=== PATIENT | male | born 1935 | race Caucasian/White ===

== ENCOUNTER 2017-01-22 08:57 | Day surgery (SDC) | payer OTHER ==
[~2017-01-22] VITALS: Ht 175.3 cm; Wt 79.8 kg
[~2017-01-22 08:57] MED LIST: ASPI81TA82 PO; ATOR40TA PO; CARV3.125 PO; ENAL10 PO; ENAL10TA7 PO; FURO1TAB93 PO; HYDR-3533 PO; METF500 PO
[2017-01-22] MEDS ORDERED: TAMS0.4C4 PO (09:46)
[2017-01-22] MEDS ORDERED: FERR1TAB36 PO (09:46)
[2017-01-22] MEDS ORDERED: AMOX500C PO (09:46)
[2017-01-22] MEDS ORDERED: ENAL10TA PO (09:46)
[2017-01-22] MEDS ORDERED: CARV3.12 PO (09:46)
[2017-01-22] MEDS ORDERED: MAGN400T2 PO (09:46)
[2017-01-22] MEDS ORDERED: METF500T PO (09:46)
[2017-01-22] MEDS ORDERED: ATOR40TA16 PO (09:46)
[2017-01-22] MEDS ORDERED: ASPI1TAB69 PO (09:46)
[2017-01-22] MEDS ORDERED: MULT1TAB85 PO (09:46)
[2017-01-22 09:49] VITALS: BP 153/88; TEMP 98.2
[2017-01-22] MEDS ORDERED: NS 1000P @30 MLS/HR (KVO) IV SCH (10:00)
[2017-01-22 10:06] LABS: AUTOMATED NEUTROPHIL # 3.6 TH/MM3 (1.8-7.7); BASOPHIL % 0.6 % (0.0-2.0); EOSINOPHIL # 0.2 TH/MM3 (0-0.4); EOSINOPHIL % 3.9 % (0.0-4.0); HEMATOCRIT 35.3 % (39.0-51.0); HEMO FLAGS DIFF FINAL; LYMPH % 14.1 % (9.0-44.0); LYMPHOCYTE # 0.7 TH/MM3 (1.0-4.8); MEAN CELL VOLUME 83.1 FL (80.0-100.0); MEAN CORPUSCULAR HEMOGLOBIN 27.9 PG (27.0-34.0); MEAN CORPUSCULAR HGB CONC 33.5 % (32.0-36.0); MONO % 13.4 % (0.0-8.0); PLATELET COUNT 114 TH/MM3 (150-450); RED BLOOD COUNT 4.25 MIL/MM3 (4.50-5.90); RED CELL DISTRIBUTION WIDTH 16.7 % (11.6-17.2); WHITE BLOOD COUNT 5.3 TH/MM3 (4.0-11.0)
[2017-01-22 10:15] LABS: APTT (PATIENT) 28.3 SEC (24.3-30.1); PROTHROMBIN TIME - PATIENT 11.6 SEC (9.8-11.6)
[2017-01-22] MEDS ORDERED: diphenhydrAMINE HCL 50 MG CAP PO SCH (10:15)
[2017-01-22 10:25] LABS: BICARBONATE 28.7 MEQ/L (21.0-32.0); POTASSIUM 3.8 MEQ/L (3.5-5.1)
[2017-01-22] MEDS ORDERED: MIDAZOLAM HCL 2 MG/2 ML VIAL ONE (11:25)
[2017-01-22] MEDS ORDERED: HEPARIN-NS/PF INJ 500 ML ONE (11:25)
[2017-01-22] MEDS ORDERED: IOHEXOL 350 MG/ML 50 ML BTL (for Cath Lab) OTHER ONE (12:28)
[2017-01-22] MEDS ORDERED: ATROPINE SULFATE 1 MG/ML VIAL IV PRN (12:30)
[2017-01-22] MEDS ORDERED: ONDANSETRON HCL 4 MG/2 ML VIAL IV PRN (12:30)
[2017-01-22] MEDS ORDERED: MISC INFORMATION XX ONE (12:30)
--- NOTE | 2017-01-22 12:51 | MA ---
cc: SO FANG DATE: 01/22/2017 1934 PROCEDURE PERFORMED 1. Left heart catheterization. 2. Selective right and left coronary angiography. 3. Selective right common femoral artery angiography. INDICATION Severe symptomatic aortic stenosis, [place] [employer] 30/preoperative evaluation. DESCRIPTION OF PROCEDURE Consent was signed. 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 The right groin was prepped and draped in sterile fashion using 1% lidocaine for local anesthesia and a micropuncture kit. A 5-Afghan sheath was inserted into the right common femoral artery. The right common femoral artery angiography was performed with a JR-4 and a JL-5 diagnostic catheters. Angiography was taken in multiple views. The patient tolerated the procedure well without complications. Estimated blood loss was less than 30 ccs. Total contrast used was 50 ccs. The right groin access site was closed with a Vascade closure device. CONCLUSION 1. Normal coronary arteries. 2. Severe symptomatic aortic stenosis. RESULTS Aortic pressure 127/65 with a mean of 92. ANGIOGRAPHY 1. Right coronary artery is a nondominant vessel, it is small with PATTY III flow. 2. Left main is patent with nonobstructive coronary artery disease. 3. LAD is a transapical vessel. It has minimal luminal irregularities throughout. It has a 30% lesion proximally and 20% distally. The LAD gave off two diagonals which are also patent with PATTY III flow and nonobstructive coronary artery disease. 4. The left circumflex artery is a dominant vessel giving off the PDA. It has minimal luminal irregularities throughout and it has a 20% proximal lesion. OM1 and OM2 are patent. RECOMMENDATIONS Consult CT surgery for AVR, continue medical management. MD SHIRA Gomez/SHELLIE /12:24 PM /12:38 PM RAFA
--- NOTE | 2017-01-22 15:59 | RADRPT ---
EXAM DATE/TIME: 01/22/2017 14:55 [facility] COMPARISON: No previous studies available for comparison. INDICATIONS : Pre-op AVR. MEDICAL HISTORY : Hypercholesterolemia. Hypertension. Congestive heart failure. Coronary artery disease. Arthritis. D iabetes. SURGICAL HISTORY : Tonsillectomy. Right total knee replacement. ENCOUNTER: Initial ACUITY: 1 day PAIN SCORE: 0/10 LOCATION: Bilateral neck PEAK SYSTOLIC VELOCITIES (cm/sec): ICA/CCA RATIO: Right: 1.5 Left: 0.9 ICA: Right: 115 Left: 74 CCA: Right: 77 Left: 81 ECA: Right: 46 Left: 86 VERTEBRAL: Right: 46 antegrade Left: 44 antegrade Elevated flow velocities and ICA/CCA ratios have been found to correlate with increased degrees of vessel stenosis, calculated as percentage of diameter relative to a normal segment of distal ICA/CCA FINDINGS: RIGHT CAROTID: A small focal calcified plaque at the ICA origin. No significant stenosis is visualized. The wavefor ms are within normal limits. LEFT CAROTID: Mild calcified plaques. No significant stenosis is visualized. The waveforms are within normal limit s. VERTEBRAL ARTERIES: Antegrade flow is seen in both vertebral arteries. A high resistance waveform is seen on the right. N ormal low resistance waveform on the left. MISCELLANEOUS: None. CONCLUSION: 1. Mild calcified plaque involving the carotid arteries bilaterally. No stenosis observed. 2. Antegrade flow involving both vertebral arteries. 3. Suspected right vertebral artery terminating in PICA distribution. Rene Ceron Jr., MD on January 22, 2017 at 15:55 Board Certified Radiologist. This report was verified electronically.
[2017-01-22 16:12] LABS: BLOOD, URINE NEG (NEG); COMMENT (UR) CULT NOT INDICATED; CULTURE IF INDICATED CULT NOT INDICATED; GLUCOSE,URINE NEG (NEG); KETONE, URINE NEG (NEG); NITRITE,URINE NEG (NEG); URINE COLOR LIGHT-YELLOW (YELLW/STRAW)
--- NOTE | 2017-01-22 16:25 | RADRPT ---
EXAM DATE/TIME: 01/22/2017 15:49 [facility] COMPARISON: No previous studies available for comparison. INDICATIONS : Pre-operation AVR; evaluate for aortic calcification. RADIATION DOSE: 5.30 CTDIvol (mGy) MEDICAL HISTORY : Cardiovascular disease. Congestive heart failure. Hypertension. SURGICAL HISTORY : None. ENCOUNTER: Initial ACUITY: 1 day PAIN SCALE: 0/10 LOCATION: Chest TECHNIQUE: Volumetric scanning of the chest was performed. Using automated exposure control and adjustment of t he mA and/or kV according to patient size, radiation dose was kept as low as reasonably achievable to obtain optimal diagnostic quality images. FINDINGS: Granuloma is seen in the left upper lobe. Gallstones are noted. There is no axillary adenopathy. M oderate coronary artery calcification and mediastinal calcifications are noted. Moderate coronary ar ashok disease is noted. Moderate vascular calcifications are seen about the aortic valve. Left renal cyst is noted. CONCLUSION: 1. Gallstones. 2. Coronary artery and aortic valvular calcifications and normal sized heart. There are no suspicio us lung lesions identified. Kuldip Borrero MD FACR on January 22, 2017 at 16:19 Board Certified Radiologist. This report was verified electronically.
--- NOTE | 2017-01-22 17:04 | PD.CAR.PN ---
CVT Progress Note Subjective/Hospital Course: sts data discussed with pt RISK SCORES About the STS Risk Calculator Procedure: AV Replacement Risk of Mortality: 2.018% Morbidity or Mortality: 13.59% Long Length of Stay: 5.052% Short Length of Stay: 38.84% Permanent Stroke: 1.452% Prolonged Ventilation: 6.466% DSW Infection: 0.235% Renal Failure: 4.161% Reoperation: 7.013% Objective: Vital Signs Date Time Temp Pulse Resp B/P Pulse Ox O2 Delivery O2 Flow Rate FiO2 01/22/17 12:33 Room Air 01/22/17 09:49 98.2 153/88 Labs: Laboratory Tests Test 01/22/17 01/22/17 09:30 15:35 White Blood Count 5.3 TH/MM3 (4.0-11.0) Red Blood Count 4.25 MIL/MM3 (4.50-5.90) Hemoglobin 11.8 GM/DL (13.0-17.0) Hematocrit 35.3 % (39.0-51.0) Mean Corpuscular Volume 83.1 FL (80.0-100.0) Mean Corpuscular Hemoglobin 27.9 PG (27.0-34.0) Mean Corpuscular Hemoglobin 33.5 % Concent (32.0-36.0) Red Cell Distribution Width 16.7 % (11.6-17.2) Platelet Count 114 TH/MM3 (150-450) Mean Platelet Volume 8.5 FL (7.0-11.0) Neutrophils (%) (Auto) 68.0 % (16.0-70.0) Lymphocytes (%) (Auto) 14.1 % (9.0-44.0) Monocytes (%) (Auto) 13.4 % (0.0-8.0) Eosinophils (%) (Auto) 3.9 % (0.0-4.0) Basophils (%) (Auto) 0.6 % (0.0-2.0) Neutrophils # (Auto) 3.6 TH/MM3 (1.8-7.7) Lymphocytes # (Auto) 0.7 TH/MM3 (1.0-4.8) Monocytes # (Auto) 0.7 TH/MM3 (0-0.9) Eosinophils # (Auto) 0.2 TH/MM3 (0-0.4) Basophils # (Auto) 0.0 TH/MM3 (0-0.2) CBC Comment DIFF FINAL Differential Comment Prothrombin Time 11.6 SEC (9.8-11.6) Prothromb Time International 1.0 RATIO Ratio Activated Partial 28.3 SEC Thromboplast Time (24.3-30.1) Sodium Level 141 MEQ/L (136-145) Potassium Level 3.8 MEQ/L (3.5-5.1) Chloride Level 108 MEQ/L (98-107) Carbon Dioxide Level 28.7 MEQ/L (21.0-32.0) Anion Gap 4 MEQ/L (5-15) Blood Urea Nitrogen 17 MG/DL (7-18) Creatinine 0.88 MG/DL (0.60-1.30) Estimat Glomerular Filtration 83 ML/MIN (>89) Rate Random Glucose 108 MG/DL (74-106) Calcium Level 9.0 MG/DL (8.5-10.1) Urine Color LIGHT-YELLOW (YELLW/STRAW) Urine Turbidity CLEAR (CLEAR) Urine pH 6.0 (5.0-8.5) Urine Specific [place] 1.022 (1.002-1.035) Urine Protein NEG mg/dL (NEG-TRACE) Urine Glucose (UA) NEG mg/dL (NEG) Urine Ketones NEG mg/dL (NEG) Urine Occult Blood NEG (NEG) Urine Nitrite NEG (NEG) Urine Bilirubin NEG (NEG) Urine Urobilinogen LESS THAN 2.0 MG/DL (LESS THAN 2.0) Urine Leukocyte Esterase NEG (NEG) Urine RBC 1 /hpf (0-3) Urine WBC LESS THAN 1 /hpf (0-5) Microscopic Urinalysis Comment CULT NOT INDICATED Result Diagram: 01/22/1792901/22/17929 Mary Beth Mata Jan 22, 2017 17:04
--- NOTE | 2017-01-22 17:43 | RADRPT ---
EXAM DATE/TIME: 01/22/2017 17:24 [facility] COMPARISON: No previous studies available for comparison. INDICATIONS : Evaluate for pneumonia, pneumothorax, or communicable disease. Pre op for heart valve replacement. MEDICAL HISTORY : None. SURGICAL HISTORY : Cardiac cath. ENCOUNTER: Initial ACUITY: 1 day PAIN SCORE: 0/10 LOCATION: Bilateral chest FINDINGS: PA and lateral views of the chest demonstrate the lungs to be symmetrically aerated without evidence of mass, infiltrate or effusion. The cardiomediastinal contours are unremarkable. Degenerative silver ges are present thoracic spine.. CONCLUSION: No acute disease. Kuldip Borrero MD FACR on January 22, 2017 at 17:41 Board Certified Radiologist. This report was verified electronically.
--- NOTE | 2017-01-22 19:52 | EKG ---
Date Performed: 01/22/2017 Time Performed: 10:11:10 PTAGE: 81 years EKG: Sinus rhythm with 1st degree A-V block Left ventricular hypertrophy Anterolateral ST-T changes Abnormal ECG PREVIOUS TRACING : 10/01/2015 12.42 Compared to the previous tracing ST-T changes present DOCTOR: Joe Russlel Interpretating Date/Time 01/22/2017 19:51:56
--- NOTE | 2017-01-23 08:37 | MB ---
cc: PAOLA SAMUEL DATE OF CONSULTATION: 01/22/2017 REASON FOR CONSULTATION: Evaluate for aortic valve replacement DATE OF : 1935 HISTORY OF PRESENT ILLNESS: The patient is an 81-year-old male, patient of Dr. Glass, primary care, Dr. Dietrich, and Dr. Kaushal Rodriguez, history of aortic stenosis, complains of symptoms of lightheadedness, presyncope, longstanding shortness of breath occurring with minimal levels of exertion, denied having any chest pain. He was told three weeks ago not to do any extensive exercise. Prior to that he was exercising at a regular basis, drives, takes care of himself, very active. He had an echocardiogram that showed a peak gradient of 93, mean gradient of 54, consistent with severe stenosis, severely restricted leaflet motion, mild to moderate mitral regurgitation, mild tricuspid regurgitation, EF of 53%. We were consulted to evaluate for aortic valve replacement. PAST MEDICAL HISTORY: 1. Chronic anemia. 2. History of thrombocytopenia, leukopenia and had a bone marrow four or five years ago which was normal. 3. Carotid artery stenosis. In 2013 it was mild. 4. 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 [place] heart class 3. 5. Chronic kidney disease, stage 2. 6. Diabetes mellitus, type 2. 7. GI bleed back in 2013, was scoped by Dr. Desai. 8. Hypertension. 9. Osteoarthritis. 10. History of prostate enlargement and follows with Dr. Latham for urology. PAST SURGICAL HISTORY: 1. Right knee replacement. 2. Tonsillectomy. 3. Bone marrow biopsy. 4. Colonoscopy. ALLERGIES: None known. HOME MEDICATIONS: 1. Amoxicillin, dental procedure p.r.n. 2. Aspirin 81 milligrams 3. Atorvastatin 40 p.o. daily. 4. Coreg 3.125 daily. 5. Metformin 500 p.o. b.i.d. 6. Flomax 0.4 p.o. daily. REVIEW OF SYSTEMS: In general, no night sweats, fever, heat and cold intolerance. Skin: No psoriasis, itching or hives. HEENT: No blurred vision, hearing loss. Respiratory: Positive for shortness of breath. Cardiovascular: No chest pain. No paroxysmal nocturnal dyspnea. No orthopnea. Gastrointestinal: No diarrhea, vomiting. Genitourinary: No burning frequency, urgency. ADOPTION AGENT: No history of TIA, CVA, seizure disorder. Endocrinology: Positive for diabetes. PHYSICAL EXAMINATION: VITAL SIGNS: Blood pressure 150/80, heart rate 75, afebrile. GENERAL: The patient is awake, alert, no acute distress. HEAD: Normocephalic, atraumatic. Pupils are equal and reactive. Oral mucosa pink, moist. NECK: Supple. No JVD. HEART: Heart sounds S1-S2. Regular rate and rhythm with a grade 3 to 4 holosystolic murmur, left sternal border. LUNGS: Clear to auscultation. No rales, rhonchi or wheezing. ABDOMEN: Soft, flat, nontender. No masses or organomegaly. EXTREMITIES: No clubbing, cyanosis or edema. LABORATORY WORK-UP: Hemoglobin of 11, hematocrit 35, white cell count of 5.3, platelet count 114. Sodium 141, potassium 3.8, BUN 17, creatinine 0.88. INR 1.0. Urinalysis unremarkable. MRSA is pending. X-RAYS: Carotid ultrasound, mild calcified plaque involving carotid arteries bilaterally. No stenosis. CT of the chest showing coronary artery and aortic valvular calcifications, normal size heart. The calcification was moderate IMPRESSION Very pleasant 81-year-old male, history of aortic stenosis and now with peak gradient of 93, mean gradient of 54. Coronary films and echocardiogram report have been reviewed by Dr. Paola Samuel. PLAN: The plan will be for aortic valve replacement on February 04, as an outpatient. The procedures, alternatives and risks have been discussed with the patient. The patient is agreeable to proceed. STS data will be documented in the electronic record and discussed with the patient. Dictated by: DOMINICK Kilgore MD VALDO Grove/CRISTOFER /5:08 PM /8:37 AM
--- NOTE | 2017-01-23 08:52 | RSPPFT ---
DATE OF PROCEDURE: 01/22/17 COMMENTS: VOLUMES DYNAMIC: FVC and FEV1 normal. FLOWS: FEV1% normal; FEF 25-75 mildly reduced. IMPRESSION: Very mild terminal airflow obstruction.
[2017-01-23 19:00] LABS: HEMOGLOBIN A1b 1.5 %; HEMOGLOBIN LA1C 1.8 %; HEMOGLOBIN P3 3.7 %
== END 2017-01-22 17:53 | disposition home or self-care (01) ==
LOC: HCAT 08:57 → HDIC 08:58 → HCAT 17:53
PROVIDERS: ATTEND Radiology Vascular & Interventional Radiology
DX: I35.0 Nonrheumatic aortic (valve) stenosis (principal); I50.9 Heart failure, unspecified; I25.10 Atherosclerotic heart disease of native coronary artery without angina pectoris; I12.9 Hypertensive chronic kidney disease with stage 1 through stage 4 chronic kidney disease, or unspecified chronic kidney disease; N18.2 Chronic kidney disease, stage 2 (mild); I65.23 Occlusion and stenosis of bilateral carotid arteries; E78.00 Pure hypercholesterolemia, unspecified; K80.20 Calculus of gallbladder without cholecystitis without obstruction; N40.0 Benign prostatic hyperplasia without lower urinary tract symptoms; E11.9 Type 2 diabetes mellitus without complications; Z79.84 Long term (current) use of oral hypoglycemic drugs; Z79.82 Long term (current) use of aspirin
CPT/HCPCS: 71020; 71250; 80048; 81001; 83036; 85025; 85610; 85730; 87641; 93005; 93454; 93880; 94010; C1769; C1893; J1644; J2250; J3010; J7030; Q0163; Q9967

== ENCOUNTER 2017-01-24 13:54 | Inpatient (IN) | payer OTHER, MEDICARE ==
[~2017-01-24] VITALS: Ht 175.3 cm; Wt 79.2 kg
[~2017-01-24 13:54] MED LIST changes: +AMOX500C PO; +ASPI1TAB69 PO; -ASPI81TA82 PO; -ATOR40TA PO; +ATOR40TA16 PO; +CARV3.12 PO; -CARV3.125 PO; -ENAL10 PO; +ENAL10TA PO; -ENAL10TA7 PO; +FERR1TAB36 PO; -FURO1TAB93 PO; -HYDR-3533 PO; +MAGN400T2 PO; -METF500 PO; +METF500T PO; +MULT1TAB85 PO; +TAMS0.4C4 PO
[2017-02-04] VITALS (9 sets, daily range): BP systolic 93–161; BP diastolic 36–85; PULSE 58–90; RESP 15–20; TEMP 98–98.3; O2SAT 97–100
[2017-02-04] MEDS ORDERED: AMINOCAPROIC ACID INJ 250 MG/ML 20 ML VIAL IV ONE (05:00)
[2017-02-04] MEDS ORDERED: DOPAMINE IV ONE (05:00)
[2017-02-04] MEDS ORDERED: GLYCOPYRROLATE 0.2 MG/ML VIAL IV ONE (05:00)
[2017-02-04] MEDS ORDERED: CALCIUM CHLORIDE 10% SOLN 1 GRAM/10 ML SYR IV ONE (05:00)
[2017-02-04] MEDS ORDERED: DEXMEDETOMIDINE INJ 50 ML IV ONE (05:00)
[2017-02-04] MEDS ORDERED: HEPARIN SODIUM - SQ 10,000 UNITS/ML VIAL SQ ONE (05:00)
[2017-02-04] MEDS ORDERED: LIDOCAINE HCL 1% 30 ML VIAL OTHER ONE (05:00)
[2017-02-04] MEDS ORDERED: VECURONIUM BROMIDE 10 MG VIAL IV ONE (05:00)
[2017-02-04] MEDS ORDERED: NOREPINEPHRINE 4 MG/4 ML AMP IV ONE (05:00)
[2017-02-04] MEDS ORDERED: MAGNESIUM SULFATE 1000 MG/2 ML VIAL (PED) IV ONE (05:00)
[2017-02-04] MEDS ORDERED: PHENYLEPHRINE HCL 10 MG/ML VIAL IV ONE (05:00)
[2017-02-04] MEDS ORDERED: PROPOFOL 1000 MG/100 ML INJ 100 ML IV ONE (05:00)
[2017-02-04] MEDS ORDERED: PROTAMINE SULFATE 250 MG/25 ML VIAL IV ONE (05:00)
[2017-02-04] MEDS ORDERED: BUPIVACAINE HCL PF 0.5% 30 ML VIAL ONE (06:29)
[2017-02-04] MEDS ORDERED: VANCOMYCIN HCL 1000 MG VIAL ONE (06:29)
[2017-02-04] MEDS ORDERED: ceFAZolin 2 GM PREMIX 50 ML ONE (06:30)
[2017-02-04] MEDS ORDERED: HEPARIN SODIUM - SQ 10,000 UNITS/ML VIAL ONE ×2 (06:30→06:37)
[2017-02-04] MEDS ORDERED: methylPREDNISolone SOD SUCC 125 MG/2 ML VIAL ONE (06:30)
[2017-02-04] MEDS ORDERED: CUSTODIOL HTK IRR SOLN 1,000 ML ONE (06:32)
[2017-02-04] MEDS ORDERED: POTASSIUM CHLORIDE 40 MEQ/20 ML VIAL ONE ×3 (06:34→06:35)
[2017-02-04] MEDS ORDERED: MANNITOL INJ 50 ML ONE (06:36)
[2017-02-04] MEDS ORDERED: SODIUM BICARBONATE 8.4% INJ 50 ML ONE (06:36)
[2017-02-04] MEDS ORDERED: HEPARIN SODIUM - IV 10,000 UNITS/10 ML VIAL ONE (06:37)
[2017-02-04] MEDS ORDERED: ALBUMIN HUMAN 25% 12.5 GM/50 ML BAGP IV ONE (06:38)
[2017-02-04] MEDS ORDERED: VITA10002 PO (06:48)
[2017-02-04] MEDS ORDERED: VITA100018 PO (06:48)
[2017-02-04] MEDS ORDERED: POVIDONE IODINE 5% (ANTISEPSIS KIT) 4 APPLICATIONS EACH NARE PRN (07:00)
[2017-02-04] MEDS ORDERED: SODIUM CHLORIDE 0.9% FLUSH 10 ML FLUSH IV FLUSH PRN ×2 (07:00)
[2017-02-04] MEDS ORDERED: INSULIN REGULAR 100 UNITS in NS 100 ML IV SCH (07:00)
[2017-02-04] MEDS ORDERED: CHLORHEXIDINE GLUCONATE 4% SOLN 120 ML BTL TOPICAL SCH (07:00)
[2017-02-04] MEDS ORDERED: SODIUM CHLORID 0.9% 500 ML IV PRN (07:00)
[2017-02-04] MEDS ORDERED: INSULIN HUMAN REGULAR 1,000 UNITS/10 ML VIAL SQ PRN (07:00)
[2017-02-04] MEDS ORDERED: METOPROLOL TARTRATE 25 MG TAB PO PRN (07:00)
[2017-02-04] MEDS ORDERED: ceFAZolin 2 GM PREMIX 50 ML IV SCH (07:00)
[2017-02-04] MEDS ORDERED: CEFAZOLIN 500 MG in NS IRR BTL 500 ML IRRIGATION SCH (07:00)
[2017-02-04] MEDS ORDERED: LACTATED RINGER'S 1000 ML IV PRN (07:00)
[2017-02-04] MEDS ORDERED: METOPROLOL TARTRATE 25 MG TAB PO SCH (07:00)
[2017-02-04] MEDS ORDERED: CHLORHEXIDINE GLUCONATE 2 % 1 PACK (2 CLOTHS) TOPICAL PRN (07:00)
[2017-02-04] MEDS ORDERED: ePHEDrine/NS 25 MG/5 ML SYR IV ONE (08:18)
[2017-02-04] MEDS ORDERED: PROPOFOL 200 MG/20 ML AMP IV ONE (08:18)
[2017-02-04] MEDS ORDERED: NEOSTIGMINE 3 MG/3 ML SYR IV ONE (08:19)
[2017-02-04] MEDS ORDERED: SODIUM CHLOR 0.9% 250 ML INJ 750 ML IV ONE (08:19)
[2017-02-04] MEDS ORDERED: NORMOSOL R INJ 3,000 ML IV ONE (08:19)
[2017-02-04] MEDS ORDERED: ceFAZolin INJ 1,000 MG VIAL ONE (13:05)
[2017-02-04] MEDS ORDERED: LACTATED RINGER'S 1000 ML INJ 500 ML IV PRN (13:24)
[2017-02-04] MEDS ORDERED: POTASSIUM CHLOR 20 MEQ PREMIX 100 ML IV PRN ×3 (13:30)
[2017-02-04] MEDS ORDERED: Post-op Orders (for Pharmacy) MISC OTHER ONE (13:30)
[2017-02-04] MEDS ORDERED: DEXTROSE 50% IN WATER 50 ML VIAL(D50) IV PUSH PRN (13:30)
[2017-02-04] MEDS ORDERED: ALBUMIN HUMAN 5% 12.5 GM/250 ML BOTTLE IV PRN (13:30)
[2017-02-04] MEDS ORDERED: ACETAMINOPHEN 650 MG SUPP RECTAL PRN (13:30)
[2017-02-04] MEDS ORDERED: oxyCODONE/ACETAMINOPHEN 5 MG/325 MG TAB PO PRN (13:30)
[2017-02-04] MEDS ORDERED: POTASSIUM CHLORIDE 20 MEQ CONTROLLED RELEASE TAB PO PRN ×2 (13:30)
[2017-02-04] MEDS ORDERED: MAGNESIUM SULFATE INJ 2 GM in SODIUM CHLORIDE 0.9% INJ 100 ML IV PRN ×4 (13:30)
[2017-02-04] MEDS ORDERED: INSULIN REGULAR (IV INFUSION) 100 UNITS in SODIUM CHLORIDE 0.9% INJ 99 ML IV SCH (13:30)
[2017-02-04] MEDS ORDERED: ACETAMINOPHEN 325 MG TAB PO PRN (13:30)
[2017-02-04] MEDS ORDERED: CALCIUM CHLORIDE 10% 1 GRAM/10 ML VIAL IV PRN (13:30)
[2017-02-04] MEDS ORDERED: CLEVIDIPINE INJ 50 ML IV SCH (13:30)
[2017-02-04] MEDS ORDERED: CALCIUM CHLORIDE INJ 1 GM in SODIUM CHLORIDE 0.9% INJ 100 ML IV PRN (13:30)
[2017-02-04] MEDS ORDERED: METOPROLOL TARTRATE 5 MG/5 ML VIAL IV PUSH PRN (13:30)
[2017-02-04] MEDS ORDERED: ONDANSETRON HCL 4 MG/2 ML VIAL IV PUSH PRN (13:30)
[2017-02-04] MEDS ORDERED: hydrALAZINE HCL 20 MG/ML VIAL IV PRN (13:30)
--- NOTE | 2017-02-04 13:43 | PD.OP ---
cc: Kaushal Aguila MD; Paola Samuel MD; Jad Chase MD Operative Report Date of Surgery: Feb 04, 2017 Preoperative Diagnosis: (1) Aortic stenosis (2) Diastolic heart failure due to valvular disease Postoperative Diagnosis: same Procedure: Minimally invasive AVR with a 23 Intuity tissue valve, MARCELINO Percutaneous femoral cannulation, Perclose arterial closure Ultrasound guidance for access. Internal rib fixation. Anesthesia: Dr. Lopez Surgeon: Paola Samuel Production Assembler(s): Luis Eduardo Gandhi MD Operation and Findings: The risks, benefits, complications, treatment options, and expected outcomes were discussed with the patient. The possibilities of reaction to medication, pulmonary aspiration, perforation of viscus, bleeding, recurrent infection, the need for additional procedures, failure to diagnose a condition, and creating a complication requiring transfusion or operation were discussed with the patient. The patient concurred with the proposed plan, giving informed consent. The site of surgery properly noted/marked. The patient was taken to Operating Room, identified as Adalberto Betts and the procedure verified as Minimally Invasive Aortic Valve Replacement. A Time Out was held and the above information confirmed. Standard monitoring lines and Barkley catheter were placed. General anesthesia was induced. The patient was prepped and draped in a sterile fashion. The left femoral artery and vein were accessed percutaneously with ultrasound guidance and 2 Perclose devices were used for later arterial closure. The patient was heparinized for cardiopulmonary bypass. The left femoral artery was cannulated with a 17 [employer] arterial cannula. The left femoral vein was cannulated with a 21 [employer] cannula under MARCELINO guidance. A 6 cm right anterior thoracotomy was performed and the 3rd rib was shingled. The right internal mammary artery and vein were ligated and divided. An Desmond retractor was placed followed by a small chest retractor. The pericardium was opened and a pericardial sling was created using interrupted 0 silk sutures. A small 1 cm incision was made at the 6th intercostal space and an LV vent and pericardial suction were placed through this access port. The aorta was dissected posteriorly for crossclamp placement. Antegrade Custodiol cardioplegia were employed. Additionally, hand-held coronary cardioplegia cannula was used during the procedure. The patient was placed on cardiopulmonary bypass. An aortic cross-clamp was applied and the heart was arrested using cold Custodiol cardioplegia delivered through a 14F catheter. The aorta was opened above the sinotubular ridge and the aortic valve was exposed. The right and left coronary was directly cannulated in addition and cardioplegia was administered. On opening the aorta, the valve appeared calcified. The valve was resected as well as all annular calcification, sized for a 23 Intuity tissue valve which was seated with 3 2-0 Ethibond sutures. The valve seated well. The valve was deployed with the included balloon at 4.5 SPENCER. The aorta was closed with running 4-0 Prolene suture. The patient systemically rewarmed. The heart was vigorously deaired with a clamp on. The clamp was removed, deairing continued. The patient was easily weaned from cardiopulmonary bypass. Decannulation was carried out without incident. Protamine was given. There was no adverse reaction. Intraoperative MARCELINO following the procedure showed a well-seated aortic valve with a tiny perivalvular leak and preserved ventricular function. Wound was checked for hemostasis was obtained using electrocautery. The 3rd rib was reapproximated to the sternum and adjacent rib with a plate. The plate was secured with 7 and 11 mm screws. The fascia and pectoralis were closed with 0 Vicryl. The subcutaneous tissue was closed using a running 3-0 Monocryl suture. The skin was closed with 4-0 Monocryl. Sterile dressings were placed. At the end of the operation, all sponge, instruments, and needle counts were correct. The patient was transferred to the CVICU in stable condition. Paola Samuel MD Feb 04, 2017 13:43
[2017-02-04] MEDS ORDERED: MIDAZOLAM HCL 5 MG/5 ML VIAL ONE ×2 (14:20)
[2017-02-04] MEDS ORDERED: fentaNYL CITRATE 1000 MCG/20 ML VIAL ONE (14:21)
--- NOTE | 2017-02-04 14:49 | RADRPT ---
EXAM DATE/TIME: 02/04/2017 14:16 [facility] COMPARISON: No previous studies available for comparison. INDICATIONS : Post open heart surgery. MEDICAL HISTORY : Cardiovascular disease. Congestive heart failure. Hypertension. SURGICAL HISTORY : None. ENCOUNTER: Initial ACUITY: 1 day PAIN SCORE: 0/10 LOCATION: Bilateral chest FINDINGS: There is cardiomegaly. Cardiac valvular prosthesis is noted. There is atelectasis at both lung bases. No consolidation or effusion. Right-sided chest tube is present, and a mediastinal tube is noted. I do not see a pneumothorax. A metallic plate and screws overlie the right lower chest. Degenerative ch anges of the spine. Right jugular line tip overlies the SVC. CONCLUSION: Atelectasis and postsurgical changes noted. Matthieu Ross MD on February 04, 2017 at 14:46 Board Certified Radiologist. This report was verified electronically.
[2017-02-04] MEDS ORDERED: RESP: RACEPINEPHRINE 2.25% 0.5 ML NEB NEB PRN (15:00)
[2017-02-04] MEDS ORDERED: RESP: ALBUTEROL 2.5 MG/IPRATROPIUM 0.5 MG NEB (PRN) NEB (15:00)
[2017-02-04] MEDS: ACETAMINOPHEN 1000 MG/100 ML VIAL IV SCH ×2 (15:11→20:21)
[2017-02-04] MEDS: TAMSULOSIN HCL 0.4 MG CAP PO SCH (20:21)
[2017-02-04] MEDS: AMIODARONE 200 MG TAB PO SCH (20:21)
[2017-02-04] MEDS: ATORVASTATIN 40 MG TAB PO SCH (20:21)
[2017-02-04] MEDS: RESP: ALBUTEROL 2.5 MG/IPRATROPIUM 0.5 MG NEB (SCH) NEB (20:53)
[2017-02-05] VITALS (18 sets, daily range): BP systolic 116–145; BP diastolic 44–66; PULSE 79–102; RESP 15–18; TEMP 98–98.7; O2SAT 94–99
[2017-02-05] MEDS: RESP: ALBUTEROL 2.5 MG/IPRATROPIUM 0.5 MG NEB (SCH) NEB ×3 (03:29→20:18)
[2017-02-05] MEDS: ACETAMINOPHEN 1000 MG/100 ML VIAL IV SCH ×2 (03:38→09:20)
[2017-02-05 05:13] LABS: HEMATOCRIT 22.6 % (39.0-51.0); MEAN CELL VOLUME 83.1 FL (80.0-100.0); MEAN CORPUSCULAR HEMOGLOBIN 28.2 PG (27.0-34.0); MEAN CORPUSCULAR HGB CONC 33.9 % (32.0-36.0); PLATELET COUNT 96 TH/MM3 (150-450); RED BLOOD COUNT 2.72 MIL/MM3 (4.50-5.90); RED CELL DISTRIBUTION WIDTH 15.7 % (11.6-17.2); WHITE BLOOD COUNT 7.8 TH/MM3 (4.0-11.0)
[2017-02-05 05:19] LABS: REVIEW FLAG FINAL
[2017-02-05 05:45] LABS: BICARBONATE 23.7 MEQ/L (21.0-32.0); MAGNESIUM 2.2 MG/DL (1.5-2.5); POTASSIUM 4.1 MEQ/L (3.5-5.1)
--- NOTE | 2017-02-05 05:51 | RADRPT ---
EXAM DATE/TIME: 02/05/2017 04:02 [facility] COMPARISON: CHEST SINGLE AP, February 04, 2017, 14:16. INDICATIONS : Shortness of breath. MEDICAL HISTORY : Cardiovascular disease. Congestive heart failure. Hypertension. SURGICAL HISTORY : None. ENCOUNTER: Subsequent ACUITY: 1 week PAIN SCORE: Non-responsive. LOCATION: Bilateral chest FINDINGS: A single view of the chest demonstrates bibasilar densities likely atelectasis. Right-sided chest tub e is unchanged. Right jugular central line is also unchanged. Heart mildly enlarged. Osseous structu res are intact. Plate and screws seen along the right chest unchanged. CONCLUSION: 1. Stable chest. 2. Right-sided chest tube without pneumothorax. Cezar Oconnor MD on February 05, 2017 at 5:47 Board Certified Radiologist. This report was verified electronically.
[2017-02-05] MEDS: PANTOPRAZOLE SOD 40 MG DELAYED RELEASE TAB PO SCH (05:55)
[2017-02-05] MEDS ORDERED: FUROSEMIDE 40 MG/4 ML VIAL IV PUSH ONE (08:30)
[2017-02-05] MEDS ORDERED: INSULIN DETEMIR 100 UNITS/ML VIAL SQ ONE (08:30)
[2017-02-05] MEDS ORDERED: SOD PHOSPHATE/SOD BIPHOSPHATE (ADULT) ENEMA 133ML RECTAL PRN (08:30)
[2017-02-05] MEDS ORDERED: BISACODYL 10 MG SUPP RECTAL PRN (08:30)
[2017-02-05] MEDS ORDERED: DEXTROSE 50% IN WATER 50 ML VIAL(D50) IV PRN (08:30)
[2017-02-05] MEDS ORDERED: POTASSIUM CHLORIDE 20 MEQ CONTROLLED RELEASE TAB PO ONE (08:30)
[2017-02-05] MEDS ORDERED: GLUCAGON 1 MG/ML VIAL OTHER PRN (08:30)
[2017-02-05] MEDS ORDERED: MULTIVITAMINS/MINERALS THERAPEUTIC TAB PO SCH (09:00)
--- NOTE | 2017-02-05 09:07 | PD.CAR.PN ---
CVT Progress Note CVT: POD #: 1 Subjective/Hospital Course: 81/ male , HX severe worsening symptoms of dyspnea , with minimal levels of exertion. Underwent cardiac cath by Dr Khoury minimal CAD 30% in prox LAD, Echo showed EF 53% PMH: , chronic anemia ( on ferrous sulfate, hx of Bone Marrow BX ( neg Heme workup) Carotid artery disease , CHF, CKD stage 3, DM, HTN, HLP Surgery: 02/04 Minimally invasive AVR with a 23 Intuity tissue valve, MARCELINO, Percutaneous femoral cannulation, Perclose arterial closure, Ultrasound guidance for access, Internal rib fixation. Or crystalloid 2400cc, cell saver 500cc, EBL 100cc , given additional 2500cc crystalloid post op 02/05 extubated after surgery, weaning off insulin gtt gentle diuresis , DC jane and chan cath HGB 7.7 BP stable / recheck in am on BB , statin , ASA / resume metformin in am Objective: GENERAL: up in chair, in good spirits SKIN: Warm and dry.Dressing in place right upper chest wall , chest tube x 2 / drained 300cc/ 12 hrs 800cc/ 24 hr HEAD: Normocephalic. EYES: No scleral icterus. No injection or drainage. NECK: Supple, trachea midline. No JVD or lymphadenopathy. CARDIOVASCULAR: Regular rate and rhythm without murmurs, gallops, or rubs. mild general edema RESPIRATORY: Breath sounds equal bilaterally. No accessory muscle use. chest tube to wall suction, no air leak GASTROINTESTINAL: Abdomen soft, non-tender, nondistended. MUSCULOSKELETAL: No cyanosis, or edema. BACK: Nontender without obvious deformity. No CVA tenderness. Vital Signs Date Time Temp Pulse Resp B/P Pulse Ox O2 Delivery O2 Flow Rate FiO2 02/05/17 08:00 98 Nasal Cannula 2.00 02/05/17 07:00 89 02/05/17 07:00 98.1 89 17 119/51 99 145/44 02/05/17 04:00 99 Nasal Cannula 2.00 02/05/17 03:24 92 02/05/17 03:24 98.2 93 15 116/51 99 133/44 02/05/17 00:39 99 Nasal Cannula 2.00 02/04/17 23:08 98.0 90 15 106/47 99 116/39 02/04/17 23:08 89 02/04/17 21:05 98 Nasal Cannula 3.00 02/04/17 20:34 99 Nasal Cannula 2.00 02/04/17 20:34 99 Nasal Cannula 4.00 02/04/17 20:00 109/50 132/45 02/04/17 19:21 98.2 66 17 104/36 99 93/46 02/04/17 19:00 67 02/04/17 16:00 99 Simple Mask 6.00 02/04/17 15:00 98.0 60 20 105/65 99 112/41 02/04/17 15:00 60 02/04/17 14:10 98.1 61 20 104/52 99 113/42 02/04/17 14:10 97 Simple Mask 6.00 02/04/17 14:10 58 02/04/17 14:10 99 Simple Mask 6.00 Labs: Laboratory Tests Test 02/05/17 04:40 White Blood Count 7.8 TH/MM3 (4.0-11.0) Red Blood Count 2.72 MIL/MM3 (4.50-5.90) Hemoglobin 7.7 GM/DL (13.0-17.0) Hematocrit 22.6 % (39.0-51.0) Mean Corpuscular Volume 83.1 FL (80.0-100.0) Mean Corpuscular Hemoglobin 28.2 PG (27.0-34.0) Mean Corpuscular Hemoglobin 33.9 % Concent (32.0-36.0) Red Cell Distribution Width 15.7 % (11.6-17.2) Platelet Count 96 TH/MM3 (150-450) Mean Platelet Volume 9.0 FL (7.0-11.0) Sodium Level 143 MEQ/L (136-145) Potassium Level 4.1 MEQ/L (3.5-5.1) Chloride Level 109 MEQ/L (98-107) Carbon Dioxide Level 23.7 MEQ/L (21.0-32.0) Anion Gap 10 MEQ/L (5-15) Blood Urea Nitrogen 24 MG/DL (7-18) Creatinine 0.93 MG/DL (0.60-1.30) Estimat Glomerular Filtration 78 ML/MIN (>89) Rate Random Glucose 94 MG/DL (74-106) Calcium Level 8.2 MG/DL (8.5-10.1) Magnesium Level 2.2 MG/DL (1.5-2.5) Result Diagram: 02/05/1743902/05/17439 Telemetry: NSR L BBB (1) Aortic stenosis (2) S/P AVR (aortic valve replacement) Plan: on ASA, BB , amiodarone hx nonobstructive CAD : on statin OOB, ambulate pulm toileting (3) Diabetes mellitus Plan: insulin sliding scale , HGB A1C 5.7, wean off insulin gtt, diabetic diet resume metformin in am (4) Hypertension Plan: resume ann in am (5) Dyslipidemia Plan: on statin (6) Diastolic heart failure due to valvular disease Plan: gentle diuresis (7) Chronic anemia Plan: HGB 11 preop / now 7.7 + 5liters IV fluids , gentle diuresis re-eval HGB in am hold on blood transfusion for now Mary Beth Mata Feb 05, 2017 09:07
--- NOTE | 2017-02-05 09:11 | HHI.FF ---
Face to Face Verification Diagnosis: (1) Aortic stenosis (2) Diabetes mellitus (3) Hypertension (4) Dyslipidemia (5) S/P AVR (aortic valve replacement) (6) Chronic anemia Physical Therapy Order: Evaluate and Treat Home Health Nursing Order: Signs/symptoms of disease process Diabetic education Wound care and dressing changes Instructions: Incentive spirometry Q1 hr x 10, while awake, also use acapella device hourly whole awake chest wall Precautions: NO pushing or pulling, ( pt must use chest pillow to support chest with all activities and with coughing Daily incision care: ok to shower daily, no tub bath. Wash all incisions with liquid dial soap, clean wash cloth to each site, rinse and pat dry. Observe for any signs of infection, such as drainage which is dark yellow, coley, green or foul smelling. Immediately report to the surgeon any drainage from the chest incision, or legs, and for any abnormal drainage from the chest tube sites. Notify surgeon if any temp >101.5 degrees F. When specialty dressing removed/ or if you do not have one, continue to shower daily as above, then rinse and pat incision dry and paint with betadine daily x 5 days. Allow steri strips to fall off if you have any. Avoid lotions, creams, salves, oils, etc. for the first month For Dr. Samuel patients , please obtain CBC, BMP, PA & Lat CXR in 2 weeks, results to Dr. Samuel ( prescription will be given) ( ) (Tele: [phone]) , Valve replacement pts will need 2decho in 2 weeks with results to Dr. Samuel . Please obtain 2 d echo at your manager area office if possible F/U appointment: as per DC instructions: PCP in 2 weeks, CV surgeon 2 weeks, Cost Estimating Manager 3-4 weeks For any questions regarding incisions/ dressing / meds / post op care or above Symptoms, Friday 8am-5pm Heart & Vascular Surgery Office ( Dr. Gandhi & Dr. Samuel), After Hours / Nights (5pm -8am) Weekends and Holidays Please call [facility] Card[facility] ([facility]) Charge Nurse Heart and Vascular Surgery patients *Special attention to sternal dressing Mandatory frequency Assess and evaluation, 4 days in a row The next week 3X week 2 times a week for 4 weeks 1 time a week for 5 weeks Schedule Heart and Vascular patients for full 60 day certification period Initial visit Review Open Heart Surgery Discharge Instructions (Sternal precautions, Activity, Elastic hose, Incision care, Driving, Incentive spirometry, Smoking, [place], Work and other) Need Betadine to paint incision Medication reconciliation Importance of follow up care/ check on appointments Make calendar record temperature daily When to call [facility] at Home nurse, review instructions, phone list Incentive Spirometry, demonstration Visit 1- Begin discharge instruction for patient family and/ or caregiver using teach back method- Signs and symptoms of infection Disease characteristics Medicines and side effects Foods and nutrition/ appetite Infection control/ hand washing/ hygiene Visit 2- Continue teaching Discharge instructions- include additional information on smoking cessation , sternal dressing (sternal vac) Visit 3- Continue teaching- Cough and deep breathing, incision monitoring. Choose my plate Visit 4- Continue teaching- Discuss limitations Discuss how they are feeling Discuss progress toward goals Remaining visits- continue teaching and monitoring I have seen patient Adalberto Gutierrez Jr Alpesh on 02/05/17. My clinical findings support the need for the requested home health care services because: Deconditioned w/ increased weakness I certify that my clinical findings support that this patient is homebound because: Post-op weakness Mary Beth Mata Feb 05, 2017 09:11
[2017-02-05] MEDS: CARVEDILOL 3.125 MG TAB PO SCH ×2 (09:21→20:57)
[2017-02-05] MEDS: MAGNESIUM OXIDE 400 MG TAB PO SCH (09:21)
[2017-02-05] MEDS: AMIODARONE 200 MG TAB PO SCH ×2 (09:21→20:56)
[2017-02-05] MEDS: ASPIRIN 81 MG CHEW TAB PO SCH (09:21)
[2017-02-05] MEDS: MULTIVITAMINS/MINERALS THERAPEUTIC TAB PO SCH (09:21)
[2017-02-05] MEDS: FERROUS SULFATE 325 MG (65 MG ELEMENTAL IRON) TAB PO SCH ×2 (09:21→17:06)
[2017-02-05] MEDS: MAGNESIUM HYDROXIDE SUSP 30 ML CUP PO SCH (09:32)
[2017-02-05] MEDS ORDERED: INSULIN ASPART SUPPLEMENTAL SCALE SQ SCH (10:00)
--- NOTE | 2017-02-05 10:29 | EKG ---
Date Performed: 02/05/2017 Time Performed: 04:17:36 PTAGE: 81 years EKG: Sinus rhythm with borderline 1st degree A-V block Left bundle branch block Abnormal ECG PREVIOUS TRACING : 01/22/2017 10.11 DOCTOR: Cesar Hackett Interpretating Date/Time 02/05/2017 10:27:21
[2017-02-05] MEDS: INSULIN ASPART SUPPLEMENTAL SCALE SQ SCH ×3 (13:49→21:10)
[2017-02-05] MEDS: SENNOSIDES 8.6 MG TAB PO SCH (20:55)
[2017-02-05] MEDS: DOCUSATE SODIUM 100 MG CAP PO SCH (20:55)
[2017-02-05] MEDS: TAMSULOSIN HCL 0.4 MG CAP PO SCH (20:56)
[2017-02-05] MEDS: ATORVASTATIN 40 MG TAB PO SCH (20:57)
[2017-02-06] VITALS (24 sets, daily range): BP systolic 114–138; BP diastolic 57–83; PULSE 70–102; RESP 16–18; TEMP 98–98.7; O2SAT 95–100
[2017-02-06] MEDS: INSULIN ASPART SUPPLEMENTAL SCALE SQ SCH ×4 (01:08→21:00)
[2017-02-06] MEDS: PANTOPRAZOLE SOD 40 MG DELAYED RELEASE TAB PO SCH (05:35)
[2017-02-06 06:13] LABS: AUTOMATED NEUTROPHIL # 5.6 TH/MM3 (1.8-7.7); BASOPHIL % 0.1 % (0.0-2.0); EOSINOPHIL % 0.1 % (0.0-4.0); LYMPH % 10.5 % (9.0-44.0); LYMPHOCYTE # 0.8 TH/MM3 (1.0-4.8); MEAN CORPUSCULAR HEMOGLOBIN 28.4 PG (27.0-34.0); MEAN CORPUSCULAR HGB CONC 34.2 % (32.0-36.0); MONO % 12.6 % (0.0-8.0); NEUT % 76.7 % (16.0-70.0); PLATELET COUNT 79 TH/MM3 (150-450); RED BLOOD COUNT 2.53 MIL/MM3 (4.50-5.90); RED CELL DISTRIBUTION WIDTH 16.2 % (11.6-17.2); WHITE BLOOD COUNT 7.3 TH/MM3 (4.0-11.0)
[2017-02-06 06:26] LABS: BICARBONATE 27.2 MEQ/L (21.0-32.0); MAGNESIUM 2.1 MG/DL (1.5-2.5)
[2017-02-06 06:30] LABS: HEMO FLAGS AUTO DIFF
[2017-02-06] MEDS: RESP: ALBUTEROL 2.5 MG/IPRATROPIUM 0.5 MG NEB (SCH) NEB ×3 (08:16→19:19)
[2017-02-06 08:21] LABS: PLATELET ESTIMATE SMEAR LOW (NORMAL); PLATELET MORPHOLOGY NORMAL (NORMAL); SCAN/DIFF AUTO DIFF CONFIRMED
[2017-02-06] MEDS: MAGNESIUM HYDROXIDE SUSP 30 ML CUP PO SCH (09:00)
[2017-02-06] MEDS: POLYETHYLENE GLYCOL 17 GM PKG PO SCH (10:30)
[2017-02-06] MEDS: FERROUS SULFATE 325 MG (65 MG ELEMENTAL IRON) TAB PO SCH ×2 (10:31→17:51)
[2017-02-06] MEDS: DOCUSATE SODIUM 100 MG CAP PO SCH ×2 (10:31→21:00)
[2017-02-06] MEDS: MULTIVITAMINS/MINERALS THERAPEUTIC TAB PO SCH (10:31)
[2017-02-06] MEDS: CARVEDILOL 3.125 MG TAB PO SCH ×2 (10:31→21:07)
[2017-02-06] MEDS: ASPIRIN 81 MG CHEW TAB PO SCH (10:32)
[2017-02-06] MEDS: MAGNESIUM OXIDE 400 MG TAB PO SCH (10:32)
[2017-02-06] MEDS: AMIODARONE 200 MG TAB PO SCH ×2 (10:32→21:07)
--- NOTE | 2017-02-06 10:33 | PD.CAR.PN ---
CVT Progress Note CVT: POD #: 2 Subjective/Hospital Course: 81/ male , HX severe worsening symptoms of dyspnea , with minimal levels of exertion. Underwent cardiac cath by Dr Khoury minimal CAD 30% in prox LAD, Echo showed EF 53% PMH: , chronic anemia ( on ferrous sulfate, hx of Bone Marrow BX ( neg Heme workup) Carotid artery disease , CHF, CKD stage 3, DM, HTN, HLP Surgery: 02/04 Minimally invasive AVR with a 23 Intuity tissue valve, MARCELINO, Percutaneous femoral cannulation, Perclose arterial closure, Ultrasound guidance for access, Internal rib fixation. Or crystalloid 2400cc, cell saver 500cc, EBL 100cc , given additional 2500cc crystalloid post op 02/05 extubated after surgery, weaning off insulin gtt gentle diuresis , DC jane and chan cath HGB 7.7 BP stable / recheck in am on BB , statin , ASA / resume metformin in am 02/06 pt on room air HGB 7.2 will transfuse one unit PRBC, HX of chronic anemia continue ferrous sulfate dc chest tubes Objective: GENERAL: SKIN: Warm and dry.incision intact right upper chest HEAD: Normocephalic. EYES: No scleral icterus. No injection or drainage. NECK: Supple, trachea midline. No JVD or lymphadenopathy. CARDIOVASCULAR: Regular rate and rhythm without murmurs, gallops, or rubs. RESPIRATORY: Breath sounds equal bilaterally. No accessory muscle use. chest tube to wall suction , no air leak drained 80cc/ 12 hrs GASTROINTESTINAL: Abdomen soft, non-tender, nondistended. MUSCULOSKELETAL: No cyanosis, or edema. BACK: Nontender without obvious deformity. No CVA tenderness. Vital Signs Date Time Temp Pulse Resp B/P Pulse Ox O2 Delivery O2 Flow Rate FiO2 02/06/17 07:30 74 02/06/17 07:30 98.2 74 18 130/83 95 02/06/17 06:00 75 02/06/17 05:00 78 02/06/17 04:00 71 02/06/17 03:00 87 02/06/17 03:00 87 02/06/17 03:00 98.0 85 120/64 96 02/06/17 02:21 81 02/06/17 01:00 89 02/06/17 00:00 86 02/05/17 23:00 81 02/05/17 23:00 102 02/05/17 23:00 98.2 95 131/66 98 02/05/17 22:00 96 02/05/17 21:00 84 02/05/17 20:18 94 21 02/05/17 20:00 94 02/05/17 19:00 85 02/05/17 19:00 98.3 85 126/60 98 02/05/17 19:00 90 02/05/17 19:00 98 Room Air 02/05/17 18:02 89 02/05/17 17:11 92 02/05/17 16:00 88 02/05/17 15:15 99 Room Air 02/05/17 15:15 98.0 81 18 122/58 99 02/05/17 15:15 83 02/05/17 15:15 81 02/05/17 14:03 79 02/05/17 13:07 86 02/05/17 12:09 88 02/05/17 11:46 98.7 97 18 129/56 99 Arterial Line 02/05/17 11:46 93 02/05/17 11:46 99 Nasal Cannula 1.00 Labs: Laboratory Tests Test 02/06/17 05:30 White Blood Count 7.3 TH/MM3 (4.0-11.0) Red Blood Count 2.53 MIL/MM3 (4.50-5.90) Hemoglobin 7.2 GM/DL (13.0-17.0) Hematocrit 21.0 % (39.0-51.0) Mean Corpuscular Volume 83.0 FL (80.0-100.0) Mean Corpuscular Hemoglobin 28.4 PG (27.0-34.0) Mean Corpuscular Hemoglobin 34.2 % Concent (32.0-36.0) Red Cell Distribution Width 16.2 % (11.6-17.2) Platelet Count 79 TH/MM3 (150-450) Mean Platelet Volume 8.8 FL (7.0-11.0) Neutrophils (%) (Auto) 76.7 % (16.0-70.0) Lymphocytes (%) (Auto) 10.5 % (9.0-44.0) Monocytes (%) (Auto) 12.6 % (0.0-8.0) Eosinophils (%) (Auto) 0.1 % (0.0-4.0) Basophils (%) (Auto) 0.1 % (0.0-2.0) Neutrophils # (Auto) 5.6 TH/MM3 (1.8-7.7) Lymphocytes # (Auto) 0.8 TH/MM3 (1.0-4.8) Monocytes # (Auto) 0.9 TH/MM3 (0-0.9) Eosinophils # (Auto) 0.0 TH/MM3 (0-0.4) Basophils # (Auto) 0.0 TH/MM3 (0-0.2) CBC Comment AUTO DIFF Differential Comment AUTO DIFF CONFIRMED Platelet Estimate LOW (NORMAL) Platelet Morphology Comment NORMAL (NORMAL) Sodium Level 142 MEQ/L (136-145) Potassium Level 4.0 MEQ/L (3.5-5.1) Chloride Level 108 MEQ/L (98-107) Carbon Dioxide Level 27.2 MEQ/L (21.0-32.0) Anion Gap 7 MEQ/L (5-15) Blood Urea Nitrogen 30 MG/DL (7-18) Creatinine 0.96 MG/DL (0.60-1.30) Estimat Glomerular Filtration 75 ML/MIN (>89) Rate Random Glucose 98 MG/DL (74-106) Calcium Level 7.9 MG/DL (8.5-10.1) Magnesium Level 2.1 MG/DL (1.5-2.5) Result Diagram: 02/06/1752902/06/17529 Telemetry: NSR (1) Aortic stenosis (2) S/P AVR (aortic valve replacement) Plan: on ASA, BB , amiodarone hx nonobstructive CAD : on statin OOB, ambulate pulm toileting chest tube removal (3) Diabetes mellitus Plan: insulin sliding scale , HGB A1C 5.7, wean off insulin gtt, diabetic diet resume metformin (4) Hypertension Plan: resume ann in am (5) Dyslipidemia Plan: on statin (6) Diastolic heart failure due to valvular disease Plan: gentle diuresis (7) Chronic anemia Plan: HGB 11 preop / now 7.7 + 5liters IV fluids , gentle diuresis re-eval HGB in am hold on blood transfusion for now HGB 7.2/ transfuse one unit PRBC Mary Beth Mata Feb 06, 2017 10:33
[2017-02-06] MEDS ORDERED: FUROSEMIDE 20 MG/2 ML VIAL IV PUSH ONE (10:45)
[2017-02-06] MEDS: metFORMIN HCL 500 MG TAB PO SCH (18:00)
[2017-02-06] MEDS: SENNOSIDES 8.6 MG TAB PO SCH (21:00)
[2017-02-06] MEDS: TAMSULOSIN HCL 0.4 MG CAP PO SCH (21:07)
[2017-02-06] MEDS: ATORVASTATIN 40 MG TAB PO SCH (21:07)
[2017-02-07] VITALS (26 sets, daily range): BP systolic 128–150; BP diastolic 56–70; PULSE 64–86; RESP 16–20; TEMP 98.2–98.8; O2SAT 96–100
[2017-02-07] MEDS: PANTOPRAZOLE SOD 40 MG DELAYED RELEASE TAB PO SCH (05:06)
[2017-02-07] MEDS: INSULIN ASPART SUPPLEMENTAL SCALE SQ SCH ×3 (05:06→16:00)
[2017-02-07 06:20] LABS: BASOPHIL % 0.3 % (0.0-2.0); EOSINOPHIL % 0.7 % (0.0-4.0); HEMATOCRIT 23.8 % (39.0-51.0); LYMPH % 13.6 % (9.0-44.0); LYMPHOCYTE # 0.8 TH/MM3 (1.0-4.8); MEAN CELL VOLUME 83.5 FL (80.0-100.0); MEAN CORPUSCULAR HEMOGLOBIN 28.6 PG (27.0-34.0); MEAN CORPUSCULAR HGB CONC 34.2 % (32.0-36.0); NEUT % 70.4 % (16.0-70.0); PLATELET COUNT 72 TH/MM3 (150-450); RED BLOOD COUNT 2.85 MIL/MM3 (4.50-5.90); RED CELL DISTRIBUTION WIDTH 15.2 % (11.6-17.2); WHITE BLOOD COUNT 5.7 TH/MM3 (4.0-11.0)
[2017-02-07 06:30] LABS: HEMO FLAGS AUTO DIFF
[2017-02-07 06:50] LABS: BICARBONATE 28.9 MEQ/L (21.0-32.0); POTASSIUM 3.8 MEQ/L (3.5-5.1)
--- NOTE | 2017-02-07 07:08 | RADRPT ---
EXAM DATE/TIME: 02/07/2017 04:44 [facility] COMPARISON: CHEST SINGLE AP, February 05, 2017, 4:02. INDICATIONS : Evaluate for pneumothorax. MEDICAL HISTORY : Cardiovascular disease. Congestive heart failure. Hypertension. SURGICAL HISTORY : None. ENCOUNTER: Subsequent ACUITY: 4 - 6 days PAIN SCORE: Non-responsive. LOCATION: Bilateral chest FINDINGS: The right chest tube has been removed. There is no pneumothorax. The lungs are grossly clear bilatera lly. There are no pleural effusions. The heart size is within normal limits. A right sided central li ne remains in place. CONCLUSION: No evidence of pneumothorax. Hank Navarro MD on February 07, 2017 at 7:06 Board Certified Radiologist. This report was verified electronically.
[2017-02-07 07:39] LABS: PLATELET ESTIMATE SMEAR LOW (NORMAL); PLATELET MORPHOLOGY NORMAL (NORMAL); SCAN/DIFF AUTO DIFF CONFIRMED
[2017-02-07] MEDS: RESP: ALBUTEROL 2.5 MG/IPRATROPIUM 0.5 MG NEB (SCH) NEB ×2 (07:41→12:44)
[2017-02-07] MEDS: DOCUSATE SODIUM 100 MG CAP PO SCH ×2 (08:58→21:00)
[2017-02-07] MEDS: MAGNESIUM OXIDE 400 MG TAB PO SCH (08:58)
[2017-02-07] MEDS: FERROUS SULFATE 325 MG (65 MG ELEMENTAL IRON) TAB PO SCH ×2 (08:58→18:39)
[2017-02-07] MEDS: POLYETHYLENE GLYCOL 17 GM PKG PO SCH (08:58)
[2017-02-07] MEDS: CARVEDILOL 3.125 MG TAB PO SCH ×2 (08:59→21:24)
[2017-02-07] MEDS: metFORMIN HCL 500 MG TAB PO SCH ×2 (08:59→18:39)
[2017-02-07] MEDS: MULTIVITAMINS/MINERALS THERAPEUTIC TAB PO SCH (08:59)
[2017-02-07] MEDS: AMIODARONE 200 MG TAB PO SCH ×2 (08:59→21:23)
[2017-02-07] MEDS ORDERED: POTASSIUM CHLORIDE 20 MEQ CONTROLLED RELEASE TAB PO ONE (09:00)
[2017-02-07] MEDS: MAGNESIUM HYDROXIDE SUSP 30 ML CUP PO SCH (09:00)
[2017-02-07] MEDS: ASPIRIN 81 MG CHEW TAB PO SCH (11:57)
--- NOTE | 2017-02-07 14:37 | PD.CAR.PN ---
CVT Progress Note CVT: POD #: 2 Subjective/Hospital Course: 81/ male , HX severe worsening symptoms of dyspnea , with minimal levels of exertion. Underwent cardiac cath by Dr Khoury minimal CAD 30% in prox LAD, Echo showed EF 53% PMH: , chronic anemia ( on ferrous sulfate, hx of Bone Marrow BX ( neg Heme workup) Carotid artery disease , CHF, CKD stage 3, DM, HTN, HLP Surgery: 02/04 Minimally invasive AVR with a 23 Intuity tissue valve, MARCELINO, Percutaneous femoral cannulation, Perclose arterial closure, Ultrasound guidance for access, Internal rib fixation. Or crystalloid 2400cc, cell saver 500cc, EBL 100cc , given additional 2500cc crystalloid post op 02/05 extubated after surgery, weaning off insulin gtt gentle diuresis , DC jane and chan cath HGB 7.7 BP stable / recheck in am on BB , statin , ASA / resume metformin in am 02/06 pt on room air HGB 7.2 will transfuse one unit PRBC, HX of chronic anemia continue ferrous sulfate dc chest tubes 02/07 suture removed from left groin / incision intact and well approximated pt went into afib this am rate controlled, continue po amiodarone discussed with Cardiology Andrea v score 4, start eliquis prior to DC eval for dc in am HGB 8.1/ after one unit PRBC 02/06 on ferrous sulfate Objective: GENERAL: SKIN: Warm and dry./ incision intact right upper chest wall / left groin incision intact HEAD: Normocephalic. EYES: No scleral icterus. No injection or drainage. NECK: Supple, trachea midline. No JVD or lymphadenopathy. CARDIOVASCULAR: irregular rate and rhythm without murmurs, gallops, or rubs. RESPIRATORY: Breath sounds equal bilaterally. No accessory muscle use. GASTROINTESTINAL: Abdomen soft, non-tender, nondistended. MUSCULOSKELETAL: No cyanosis, or edema. BACK: Nontender without obvious deformity. No CVA tenderness. Vital Signs Date Time Temp Pulse Resp B/P Pulse Ox O2 Delivery O2 Flow Rate FiO2 02/07/17 13:23 84 02/07/17 12:00 71 02/07/17 11:00 98.2 71 20 138/66 99 02/07/17 11:00 72 02/07/17 10:00 84 02/07/17 09:00 82 02/07/17 08:00 80 02/07/17 08:00 98.2 80 20 149/59 96 02/07/17 07:44 97 02/07/17 07:00 67 02/07/17 06:00 76 02/07/17 05:00 70 02/07/17 04:00 78 02/07/17 03:00 68 02/07/17 03:00 98.7 86 18 130/63 97 02/07/17 02:28 65 02/07/17 01:00 65 02/07/17 00:00 66 02/06/17 23:00 98.4 70 16 114/64 100 02/06/17 23:00 71 02/06/17 22:00 75 02/06/17 21:00 80 02/06/17 20:00 72 02/06/17 19:19 95 21 02/06/17 19:00 98.7 78 17 131/57 99 02/06/17 19:00 77 02/06/17 18:00 78 02/06/17 17:00 90 02/06/17 15:50 98.5 83 18 134/72 95 02/06/17 15:50 83 02/06/17 15:00 80 Labs: Laboratory Tests Test 02/07/17 05:50 White Blood Count 5.7 TH/MM3 (4.0-11.0) Red Blood Count 2.85 MIL/MM3 (4.50-5.90) Hemoglobin 8.1 GM/DL (13.0-17.0) Hematocrit 23.8 % (39.0-51.0) Mean Corpuscular Volume 83.5 FL (80.0-100.0) Mean Corpuscular Hemoglobin 28.6 PG (27.0-34.0) Mean Corpuscular Hemoglobin 34.2 % Concent (32.0-36.0) Red Cell Distribution Width 15.2 % (11.6-17.2) Platelet Count 72 TH/MM3 (150-450) Mean Platelet Volume 9.2 FL (7.0-11.0) Neutrophils (%) (Auto) 70.4 % (16.0-70.0) Lymphocytes (%) (Auto) 13.6 % (9.0-44.0) Monocytes (%) (Auto) 15.0 % (0.0-8.0) Eosinophils (%) (Auto) 0.7 % (0.0-4.0) Basophils (%) (Auto) 0.3 % (0.0-2.0) Neutrophils # (Auto) 4.0 TH/MM3 (1.8-7.7) Lymphocytes # (Auto) 0.8 TH/MM3 (1.0-4.8) Monocytes # (Auto) 0.9 TH/MM3 (0-0.9) Eosinophils # (Auto) 0.0 TH/MM3 (0-0.4) Basophils # (Auto) 0.0 TH/MM3 (0-0.2) CBC Comment AUTO DIFF Differential Comment AUTO DIFF CONFIRMED Platelet Estimate LOW (NORMAL) Platelet Morphology Comment NORMAL (NORMAL) Sodium Level 142 MEQ/L (136-145) Potassium Level 3.8 MEQ/L (3.5-5.1) Chloride Level 106 MEQ/L (98-107) Carbon Dioxide Level 28.9 MEQ/L (21.0-32.0) Anion Gap 7 MEQ/L (5-15) Blood Urea Nitrogen 25 MG/DL (7-18) Creatinine 0.91 MG/DL (0.60-1.30) Estimat Glomerular Filtration 80 ML/MIN (>89) Rate Random Glucose 99 MG/DL (74-106) Calcium Level 8.1 MG/DL (8.5-10.1) Result Diagram: 02/07/17 0550 02/07/17 0550 Telemetry: afib with LBBB (1) Aortic stenosis (2) S/P AVR (aortic valve replacement) Plan: on ASA, BB , amiodarone hx nonobstructive CAD : on statin OOB, ambulate pulm toileting (3) Diabetes mellitus Plan: insulin sliding scale , HGB A1C 5.7, , diabetic diet metformin (4) Hypertension Plan: resume ann (5) Dyslipidemia Plan: on statin (6) Diastolic heart failure due to valvular disease Plan: gentle diuresis (7) Chronic anemia Plan: HGB 11 preop / now 7.7> 7.2 + 5liters IV fluids , gentle diuresis HGB now 8.1/ continue ferrous sulfate Mary Beth Mata Feb 07, 2017 14:37
[2017-02-07] MEDS ORDERED: DOCU1CAP39 PO (14:44)
[2017-02-07] MEDS ORDERED: AMIO200T PO (14:44)
[2017-02-07] MEDS ORDERED: MAGNESIUM SULFATE 1 GM PREMIX 100 ML IV ONE (15:00)
[2017-02-07] MEDS: SENNOSIDES 8.6 MG TAB PO SCH (21:00)
[2017-02-07] MEDS: ATORVASTATIN 40 MG TAB PO SCH (21:24)
[2017-02-07] MEDS: TAMSULOSIN HCL 0.4 MG CAP PO SCH (21:24)
[2017-02-08] VITALS (15 sets, daily range): BP systolic 125–133; BP diastolic 63–75; PULSE 56–90; RESP 16–20; TEMP 97.5–98.2; O2SAT 98–99
[2017-02-08 06:27] LABS: HEMATOCRIT 26.1 % (39.0-51.0); MEAN CELL VOLUME 84.5 FL (80.0-100.0); MEAN CORPUSCULAR HEMOGLOBIN 27.6 PG (27.0-34.0); MEAN CORPUSCULAR HGB CONC 32.7 % (32.0-36.0); PLATELET COUNT 78 TH/MM3 (150-450); RED BLOOD COUNT 3.09 MIL/MM3 (4.50-5.90); RED CELL DISTRIBUTION WIDTH 15.5 % (11.6-17.2); WHITE BLOOD COUNT 5.6 TH/MM3 (4.0-11.0)
[2017-02-08] MEDS: PANTOPRAZOLE SOD 40 MG DELAYED RELEASE TAB PO SCH (06:30)
[2017-02-08 06:33] LABS: REVIEW FLAG FINAL
[2017-02-08 06:48] LABS: BICARBONATE 28.7 MEQ/L (21.0-32.0); MAGNESIUM 2.1 MG/DL (1.5-2.5); POTASSIUM 4.1 MEQ/L (3.5-5.1)
[2017-02-08] MEDS: MAGNESIUM HYDROXIDE SUSP 30 ML CUP PO SCH (09:00)
[2017-02-08] MEDS: POLYETHYLENE GLYCOL 17 GM PKG PO SCH (09:00)
[2017-02-08] MEDS: ASPIRIN 81 MG CHEW TAB PO SCH ×2 (09:00→13:49)
[2017-02-08] MEDS: MULTIVITAMINS/MINERALS THERAPEUTIC TAB PO SCH (09:09)
[2017-02-08] MEDS: MAGNESIUM OXIDE 400 MG TAB PO SCH (09:10)
[2017-02-08] MEDS: FERROUS SULFATE 325 MG (65 MG ELEMENTAL IRON) TAB PO SCH (09:10)
[2017-02-08] MEDS: AMIODARONE 200 MG TAB PO SCH (09:11)
[2017-02-08] MEDS: DOCUSATE SODIUM 100 MG CAP PO SCH (09:11)
[2017-02-08] MEDS: metFORMIN HCL 500 MG TAB PO SCH (09:12)
[2017-02-08] MEDS: CARVEDILOL 3.125 MG TAB PO SCH (09:13)
[2017-02-08] MEDS ORDERED: APIXABAN 2.5 MG TABLET PO SCH (12:15)
[2017-02-08] MEDS ORDERED: APIX2.5T PO (12:16)
--- NOTE | 2017-02-08 12:26 | HHI.DS ---
Discharge Summary Admission Date Feb 04, 2017 at 06:11 Discharge Date: Feb 08, 2017 Admitting Diagnosis Severe aortic stenosis Diastolic heart failure (1) Aortic stenosis Diagnosis: Principal (2) Diastolic heart failure due to valvular disease Diagnosis: Principal (3) Diabetes mellitus Diagnosis: Secondary (4) Hypertension Diagnosis: Secondary (5) Dyslipidemia Diagnosis: Secondary (6) Chronic anemia Diagnosis: Secondary Procedures Minimally invasive AVR with a 23 Intuity tissue valve Brief History 81/ male , HX severe worsening symptoms of dyspnea , with minimal levels of exertion. Underwent cardiac cath by Dr Khoury minimal CAD 30% in prox LAD, Echo showed EF 53% PMH: , chronic anemia ( on ferrous sulfate, hx of Bone Marrow BX ( neg Heme workup) Carotid artery disease , CHF, CKD stage 3, DM, HTN, HLP CBC/BMP: 02/08/17 0553 02/08/17 0553 Significant Findings Laboratory Tests Test 02/06/17 02/07/17 02/08/17 05:30 05:50 05:53 Red Blood Count 2.53 MIL/MM3 2.85 MIL/MM3 3.09 MIL/MM3 (4.50-5.90) (4.50-5.90) (4.50-5.90) Hemoglobin 7.2 GM/DL 8.1 GM/DL 8.5 GM/DL (13.0-17.0) (13.0-17.0) (13.0-17.0) Hematocrit 21.0 % 23.8 % 26.1 % (39.0-51.0) (39.0-51.0) (39.0-51.0) Platelet Count 79 TH/MM3 72 TH/MM3 78 TH/MM3 (150-450) (150-450) (150-450) Neutrophils (%) (Auto) 76.7 % 70.4 % (16.0-70.0) (16.0-70.0) Monocytes (%) (Auto) 12.6 % 15.0 % (0.0-8.0) (0.0-8.0) Lymphocytes # (Auto) 0.8 TH/MM3 0.8 TH/MM3 (1.0-4.8) (1.0-4.8) Platelet Estimate LOW (NORMAL) LOW (NORMAL) Chloride Level 108 MEQ/L (98-107) Blood Urea Nitrogen 30 MG/DL (7-18) 25 MG/DL (7-18) 20 MG/DL (7-18) Estimat Glomerular Filtration 75 ML/MIN (>89) 80 ML/MIN (>89) 72 ML/MIN (>89) Rate Calcium Level 7.9 MG/DL 8.1 MG/DL 8.0 MG/DL (8.5-10.1) (8.5-10.1) (8.5-10.1) Imaging Last Impressions Chest X-Ray 02/07/17 0600 Signed Impressions: Service Date/Time: Tuesday, February 07, 2017 04:44 - CONCLUSION: No evidence of pneumothorax. Hank Navarro MD PE at Discharge chest - CTA COR - RRR ABD - soft, NT wound - dry and intact Hospital Course Surgery: 02/04 Minimally invasive AVR with a 23 Intuity tissue valve, MARCELINO, Percutaneous femoral cannulation, Perclose arterial closure, Ultrasound guidance for access, Internal rib fixation. Or crystalloid 2400cc, cell saver 500cc, EBL 100cc , given additional 2500cc crystalloid post op 02/05 extubated after surgery, weaning off insulin gtt gentle diuresis , DC jane and chan cath HGB 7.7 BP stable / recheck in am on BB , statin , ASA / resume metformin in am 02/06 pt on room air HGB 7.2 will transfuse one unit PRBC, HX of chronic anemia continue ferrous sulfate dc chest tubes 02/07 suture removed from left groin / incision intact and well approximated pt went into afib this am rate controlled, continue po amiodarone discussed with Cardiology Andrea v score 4, start eliquis prior to DC eval for dc in am HGB 8.1/ after one unit PRBC 02/06 on ferrous sulfate Pt Condition on Discharge: Good Discharge Disposition: Disch w/ Home Health Serv Discharge Instructions DIET: Follow Instructions for: Diabetic Diet Activities you can perform: Full Weight Bearing, Shower Only-No Bath Activities to avoid: Lifting/Bending, Shaving, Driving Additional Activity Instructio: no lifting >8 lbs or gallon of milk Follow up Referrals: Appointment for Follow Up Appointment for Follow Up PCP Follow-up New Orders: 2D ECHO - 2 Weeks BASIC METABOLIC PROF - 2 Weeks CBC NO DIFF - 2 Weeks X-RAY CHEST PA & LAT - 2 Weeks New Medications: Amiodarone (Amiodarone) 200 Mg Tab 200 MG PO Q12HR heart rhythm #28 TAB Apixaban (Eliquis) 2.5 Mg Tab 2.5 MG PO BID Blood Clot Prevention #60 Ref 1 TAB Docusate Sodium (Dok) 100 Mg Cap 100 MG PO BID Constipation #60 CAP Continued Medications: Amoxicillin (Amoxicillin) 500 Mg Cap 2 GM PO DIRECTED FOR DENTAL PROCEDURES Infection Ref 0 CAP Aspirin (Aspirin) 81 Mg Tabdr 81 MG PO DAILY TAB Atorvastatin (Atorvastatin) 40 Mg Tab 40 MG PO HS Cholesterol Management Ref 0 TAB Carvedilol (Carvedilol) 3.125 Mg Tab 3.125 MG PO BID Ref 0 TAB Cholecalciferol (Vitamin D3) 1,000 Unit Tab 1000 UNITS PO DAILY Nutritional Supplement #1 Ref 0 BOTTLE Cyanocobalamin (Vitamin B-12) 1,000 Mcg Tab 1000 MCG PO DAILY Nutritional Supplement #1 Ref 0 BOTTLE Enalapril (Enalapril) 10 Mg Tab 10 MG PO DAILY Ref 0 TAB Ferrous Sulfate (Iron) 325 Mg Tab 325 MG PO BIDPC Take after a meal. Nutritional Supplement Ref 0 TAB Magnesium Oxide (Magnesium Oxide) 400 Mg Tab 400 MG PO DAILY Nutritional Supplement Ref 0 TAB Metformin (Metformin) 500 Mg Tab 500 MG PO BIDPC With meals Blood Sugar Management Ref 0 TAB Multiple Vitamins W/ Minerals (Multivitamin Men) 1 Tab Tab 1 TAB PO DAILY Nutritional Supplement Ref 0 TAB Tamsulosin (Tamsulosin) 0.4 Mg Cap 0.4 MG PO HS Manage Prostate Problems Ref 0 CAP Paola Samuel MD Feb 08, 2017 12:26
--- NOTE | 2017-02-08 15:53 | EKG ---
Date Performed: 02/07/2017 Time Performed: 10:23:16 PTAGE: 81 years EKG: Atrial fibrillation Left bundle branch block Abnormal ECG PREVIOUS TRACING : 02/05/2017 04.17 Compared to previous tracing, rhythm has changed from Sinus rhythm to atrial fibrillation. DOCTOR: Praful Shah Interpretating Date/Time 02/08/2017 15:52:48
== END 2017-02-08 14:30 | disposition home or self-care (01) | DRG 220 ==
LOC: HSDI 02-04 06:11 → HCVR 02-04 14:04 → HCIN 02-05 10:13
PROVIDERS: ADMIT Thoracic Surgery (Cardiothoracic Vascular Surgery); ATTEND Thoracic Surgery (Cardiothoracic Vascular Surgery)
PROC: 02RF08Z Replacement of Aortic Valve with Zooplastic Tissue, Open Approach (ICD-10-PCS; principal; 2017-02-05)
PROC: 5A1221Z Performance of Cardiac Output, Continuous (ICD-10-PCS; 2017-02-05)
PROC: B24BZZ4 Ultrasonography of Heart with Aorta, Transesophageal (ICD-10-PCS; 2017-02-05)
PROC: 30233N1 Transfusion of Nonautologous Red Blood Cells into Peripheral Vein, Percutaneous Approach (ICD-10-PCS; 2017-02-06)
DX: I35.2 Nonrheumatic aortic (valve) stenosis with insufficiency (principal); I13.0 Hypertensive heart and chronic kidney disease with heart failure and stage 1 through stage 4 chronic kidney disease, or unspecified chronic kidney disease; E11.22 Type 2 diabetes mellitus with diabetic chronic kidney disease; N18.3 Chronic kidney disease, stage 3 (moderate); D64.9 Anemia, unspecified; I25.10 Atherosclerotic heart disease of native coronary artery without angina pectoris; E78.5 Hyperlipidemia, unspecified; I44.7 Left bundle-branch block, unspecified; I48.91 Unspecified atrial fibrillation
CPT/HCPCS: 36430; 71010; 76937; 80048; 82948; 83735; 85014; 85025; 85027; 86850; 86900; 86901; 86920; 88305; 88311; 93005; 93318; 94150; 94640; 94664; 94667; 94668; C1713; C9399; J0131; J0690; J1265; J1644; J1815; J1940; J2150; J2250; J2370; J2710; J2720; J2930; J3010; J3370; J3475; J3480; J7050; P9016; P9045; P9047

== ENCOUNTER 2017-02-20 01:31 | Inpatient (IN) | payer OTHER, MEDICARE ==
[~2017-02-20] VITALS: Ht 175.3 cm; Wt 78.0 kg
[2017-02-20] VITALS (24 sets, daily range): BP systolic 102–203; BP diastolic 55–100; PULSE 81–102; RESP 18–25; TEMP 97.7–103.1; O2SAT 93–100
[~2017-02-20 01:31] MED LIST changes: +AMIO200T PO; +APIX2.5T PO; +DOCU1CAP39 PO; +VITA100018 PO; +VITA10002 PO
[2017-02-20] MEDS ORDERED: SODIUM CHLORIDE 0.9% FLUSH 10 ML FLUSH IVF PRN (01:45)
[2017-02-20] MEDS ORDERED: ACETAMINOPHEN 325 MG TAB PO ONE (02:00)
[2017-02-20 02:02] LABS: BLOOD, URINE MOD (NEG); GLUCOSE,URINE NEG (NEG); KETONE, URINE NEG (NEG); MUCUS URINE FEW /lpf (OCC); NITRITE,URINE NEG (NEG); PH, URINE 6.5 (5.0-8.5); URINE COLOR LIGHT-YELLOW (YELLW/STRAW)
[2017-02-20 02:03] LABS: COMMENT (UR) CULT NOT INDICATED; CULTURE IF INDICATED CULT NOT INDICATED
--- NOTE | 2017-02-20 02:11 | RADRPT ---
EXAM DATE/TIME: 02/20/2017 01:55 [facility] COMPARISON: CHEST SINGLE AP, February 07, 2017, 4:44. INDICATIONS : Shortness of breath starting today MEDICAL HISTORY : Cardiovascular disease. Congestive heart failure. Hypertension SURGICAL HISTORY : None. ENCOUNTER: Initial ACUITY: 1 day PAIN SCORE: Non-responsive. LOCATION: Bilateral chest FINDINGS: A single view of the chest demonstrates increased interstitial markings bilaterally suggestive of pul monary edema. There is a small right neural effusion. The heart size is within normal limits and stab le compared to the prior study. The bony structures are stable.. CONCLUSION: Pulmonary edema with small right-sided effusion. Hank Navarro MD on February 20, 2017 at 2:09 Board Certified Radiologist. This report was verified electronically.
[2017-02-20 02:15] LABS: ALT (GPT) 51 U/L (12-78); ANION GAP 10 MEQ/L (5-15); AST (GOT) 31 U/L (15-37); BICARBONATE 25.5 MEQ/L (21.0-32.0); BLOOD UREA NITROGEN 17 MG/DL (7-18); CHLORIDE 103 MEQ/L (98-107); GLOMERULAR FILTRATION RATE 69 ML/MIN (>89); MAGNESIUM 1.6 MG/DL (1.5-2.5); POTASSIUM 3.9 MEQ/L (3.5-5.1); SODIUM (NA) 138 MEQ/L (136-145)
[2017-02-20] MEDS ORDERED: KETOROLAC TROMETHAMINE 30 MG/ML (IVP) VIAL IV PUSH ONE (02:15)
[2017-02-20 02:19] LABS: ALKALINE PHOSPHATASE 90 U/L (45-117); TOTAL BILIRUBIN ADULT 0.8 MG/DL (0.2-1.0)
[2017-02-20] MEDS ORDERED: PRED50 PO (02:21)
[2017-02-20 02:28] LABS: BLOOD GAS BASE EXCESS 0.4 mmol/L (-2-2); BLOOD GAS CARBOXYHEMOGLOBIN 1.5 % (0-4); BLOOD GAS HCO3 24 mmol/L (22-26); BLOOD GAS METHEMOGLOBIN 0.4 % (0-2); BLOOD GAS O2 HGB SATURATION 99 % (90-100); BLOOD GAS OXYGEN CONTENT 14.8 Vol % (12.0-20.0); BLOOD GAS PCO2 32 mmHg (38-42); BLOOD GAS PO2 413 mmHG (61-120); CRITICAL VALUE NO; DRAW SITE LT BRACHIAL; FIO2 100 %; NUMBER OF ARTERIAL PUNCTURES 1; OXYGEN DEVICE NPPV; STAT YES; TEMP CORR TO 98.6; ULNAR PULSE PRESENT; VENT SETTINGS IPAP16/EPAP8
[2017-02-20 02:37] LABS: BASOPHIL % 0.2 % (0.0-2.0); EOSINOPHIL % 0.3 % (0.0-4.0); HEMATOCRIT 33.8 % (39.0-51.0); HEMO FLAGS DIFF FINAL; LYMPH % 3.4 % (9.0-44.0); MEAN CELL VOLUME 85.3 FL (80.0-100.0); MEAN CORPUSCULAR HEMOGLOBIN 27.5 PG (27.0-34.0); MEAN CORPUSCULAR HGB CONC 32.3 % (32.0-36.0); MONO % 5.7 % (0.0-8.0); NEUT % 90.4 % (16.0-70.0); PLATELET COUNT 187 TH/MM3 (150-450); RED BLOOD COUNT 3.96 MIL/MM3 (4.50-5.90); RED CELL DISTRIBUTION WIDTH 15.3 % (11.6-17.2); WHITE BLOOD COUNT 9.7 TH/MM3 (4.0-11.0)
[2017-02-20 02:38] LABS: AUTOMATED NEUTROPHIL # 8.8 TH/MM3 (1.8-7.7); LYMPHOCYTE # 0.3 TH/MM3 (1.0-4.8)
[2017-02-20] MEDS ORDERED: NALOXONE HCL 0.4 MG/ML AMP IV PRN (02:45)
[2017-02-20] MEDS ORDERED: SODIUM CHLORIDE 0.9% FLUSH 10 ML FLUSH IV FLUSH PRN (02:45)
--- NOTE | 2017-02-20 02:58 | HHI.HP ---
[facility] Service [facility] Primary Care Physician Jose De Jesus Glass Do, MD Admission Diagnosis congestive heart failure with pulmonary edema Diagnoses: Chief Complaint: I could not catch a breath Travel History International Travel<30 Days: No Contact w/Intl Traveler <30 Da: No Traveled to Known Affected Are: No History of Present Illness History on patient, your physician communication, review of medical records, and family members at the bedside. Patient reported that came to the hospital because he was not able to breathe at all at home. He reports that came on all of a sudden today. Also reports a fever at home. Reports of mild cough but productive of yellowish sputum. Again, patient states this fevers suddenly came on today. Reports of bilateral lower extremity edema worsening in the past few days. Denies any urinary burning or pain on urination. Denies any blood in stool or urine. Daughter at the bedside stated that patient was progressively short of breath during the day and by the end of the day, he was having cough which has mild streaks of blood in it. This worried her which was why they called 911. Upon EMS arrival, patient was quite dyspneic with peripheral edema for which they had given him Lasix 80 mg IV with 4 mg morphine. He was brought into ER on C Pap. He also had documented fever of 103 upon arrival. His initial blood pressure was 200 over 100s. According to the family members at the bedside, patient did have a chest x-ray and an echocardiogram just yesterday at Dr. Dietrich's office. They were told that everything was normal. Patient underwent aortic valve replacement for severe aortic stenosis by Dr. Keller on February 04, 2017. He was discharged from the hospital on February 08, 2017. He does have history of diastolic heart failure secondary to valvular disease. Apart from the above, patient denies any syncopal episodes/dizziness. He denies any nausea/vomiting/diarrhea/urinary burning or pain on urination. Review of Systems Except as stated in HPI: all other systems reviewed are Neg Past Family Social History Past Medical History Hypertension Diabetes Diastolic heart failure. EF 53%. Aortic valve stenosisstatus post aortic valve replacement February 04, 2017 CADminimal disease by catheter. 30% in proximal LAD. Chronic anemia Chronic kidney disease stage III Hyperlipidemia Carotid artery disease Past Surgical History knee replacement avr - bovine Reported Medications Patient's medications listed on EMRreviewed. Family confirms that patient is on same regimen as hospital discharge. No new changes. Allergies: Coded Allergies: No Known Allergies (Unverified , 02/20/17) Family History Denies family history of any medical issues Social History never smoked never drink Physical Exam Vital Signs Vital Signs Date Time Temp Pulse Resp B/P Pulse Ox O2 Delivery O2 Flow Rate FiO2 02/20/17 02:50 102.2 95 20 124/66 100 CPAP 02/20/17 02:36 100 35 02/20/17 02:11 103.1 100 20 153/75 100 CPAP 02/20/17 01:41 99 CPAP 02/20/17 01:41 20 100 CPAP 02/20/17 01:37 116 24 99 CPAP 02/20/17 01:34 103.1 102 25 203/100 99 02/20/17 01:30 95 7.00 02/20/17 01:30 94 100 Physical Exam GENERAL: This is a well-nourished, well-developed patient, in no apparent distress. SKIN: No rashes, ecchymoses or lesions. Cool and dry. Surgical sites clean HEAD: Atraumatic. Normocephalic. No temporal or scalp tenderness. EYES: o scleral icterus. No injection or drainage. ENT: Nose without bleeding, purulent drainage or septal hematoma. . Airway patent. NECK: Trachea midline. No JVD CARDIOVASCULAR: Regular rate and rhythm without murmurs, gallops, or rubs. RESPIRATORY: On BiPAP. Quite comfortable and able to complete sentences. FiO2 of 35%, saturating 100%. No accessory respiratory muscle use. Bilaterally decreased air entry. Limited exam due to BiPAP sounds. GASTROINTESTINAL: Abdomen soft, non-tender, nondistended. No guarding. No suprapubic tenderness. : Has Barkley catheter in place. 1300 cc of urine in the bag. MUSCULOSKELETAL: Extremities without clubbing, cyanosis. Bilateral lower extremity pitting edema 2+ to knees. No calf tenderness. NEUROLOGICAL: Awake and alert. Motor and sensory grossly within normal limits. Normal speech. Laboratory Laboratory Tests Test 02/20/17 02/20/17 02/20/17 01:40 01:45 02:15 Urine Color LIGHT-YELLOW Urine Turbidity CLEAR Urine pH 6.5 Urine Specific [place] 1.006 Urine Protein NEG Urine Glucose (UA) NEG Urine Ketones NEG Urine Occult Blood MOD Urine Nitrite NEG Urine Bilirubin NEG Urine Urobilinogen LESS THAN 2.0 Urine Leukocyte Esterase NEG Urine RBC 98 Urine WBC LESS THAN 1 Urine Mucus FEW Microscopic Urinalysis Comment CULT NOT INDICATED White Blood Count 9.7 Red Blood Count 3.96 Hemoglobin 10.9 Hematocrit 33.8 Mean Corpuscular Volume 85.3 Mean Corpuscular Hemoglobin 27.5 Mean Corpuscular Hemoglobin 32.3 Concent Red Cell Distribution Width 15.3 Platelet Count 187 Mean Platelet Volume 8.2 Neutrophils (%) (Auto) 90.4 Lymphocytes (%) (Auto) 3.4 Monocytes (%) (Auto) 5.7 Eosinophils (%) (Auto) 0.3 Basophils (%) (Auto) 0.2 Neutrophils # (Auto) 8.8 Lymphocytes # (Auto) 0.3 Monocytes # (Auto) 0.6 Eosinophils # (Auto) 0.0 Basophils # (Auto) 0.0 CBC Comment DIFF FINAL Differential Comment Sodium Level 138 Potassium Level 3.9 Chloride Level 103 Carbon Dioxide Level 25.5 Anion Gap 10 Blood Urea Nitrogen 17 Creatinine 1.03 Estimat Glomerular Filtration 69 Rate Random Glucose 180 Lactic Acid Level 1.2 Calcium Level 8.9 Magnesium Level 1.6 Total Bilirubin 0.8 Aspartate Amino Transf 31 (AST/SGOT) Alanine Aminotransferase 51 (ALT/SGPT) Alkaline Phosphatase 90 Troponin I LESS THAN 0.02 B-Type Natriuretic Peptide 661 Total Protein 7.2 Albumin 3.8 Blood Gas Puncture Site LT BRACHIAL Blood Gas Patient Temperature 98.6 Blood Gas HCO3 24 Blood Gas Base Excess 0.4 Blood Gas Oxygen Saturation 99 Arterial Blood pH 7.49 Arterial Blood Partial 32 Pressure CO2 Arterial Blood Partial 413 Pressure O2 Arterial Blood Oxygen Content 14.8 Arterial Blood 1.5 Carboxyhemoglobin Arterial Blood Methemoglobin 0.4 Blood Gas Hemoglobin 10.0 Oxygen Delivery Device NPPV Blood Gas Ventilator Setting IPAP16/[id number] Blood Gas Inspired Oxygen 100 Date/Time Procedure Status Source Growth 02/20/17 01:45 Aerobic Blood Culture Received Blood Peripheral Pending 02/20/17 01:45 Anaerobic Blood Culture Received Blood Peripheral Pending Result Diagram: 02/20/1714402/20/17144 Imaging Last 48 hours Impressions Chest X-Ray 02/20/17 0138 Signed Impressions: Service Date/Time: January 01:55 - CONCLUSION: Pulmonary edema with small right-sided effusion. Hank Navarro MD Assessment and Plan Assessment and Plan Impression: Acute pulmonary edema secondary underlying Diastolic heart failure versus flash pulmonary edema from hypertensive emergency given that family is stating a normal chest x-ray and a normal echo yesterday. Fever 103possibly secondary to early pneumonia Possible early pneumonia postop Recent aortic valve replacementApril 2016 Hypertension Diabetes Diastolic heart failure. EF 53%. Aortic valve stenosisstatus post aortic valve replacement February 04, 2017 CADminimal disease by catheter. 30% in proximal LAD. Chronic anemia Chronic kidney disease stage III Hyperlipidemia Carotid artery disease Plan: Patient was given Lasix 80 mg IV by EMS. So far he has diuresed 1300 cc. He was also placed on BiPAP in ER. He was saturating 100% on FiO2 of 35%. Currently looks quite comfortable on BiPAP. Will give him a trial off BiPAP and watch closely. Serial cardiac enzymes and EKGs. Would consult patient's clinical pharmacy specialist Consult cardiothoracic surgeon since patient had recent surgery by them. Monitor fever trends. We'll follow blood culture results. Chest x-ray at present is clear although likely this is because of early pneumonia. We'll start patient on levofloxacin 750 mg IV every 24 hours. Physician Certification 2 Midnight Certification Type: Admission for Inpatient Services Order for Inpatient Services The services are ordered in accordance with Medicare regulations or non- Medicare payer requirements, as applicable. In the case of services not specified as inpatient-only, they are appropriately provided as inpatient services in accordance with the 2-midnight benchmark. Estimated LOS (days): 2 days is the estimated time the patient will need to remain in the hospital, assuming treatment plan goals are met and no additional complications. Post-Hospital Plan: Home Poli Coon MD Feb 20, 2017 02:57
[2017-02-20] MEDS: LEVOFLOXACIN 750 MG PREMIX INJ 150 ML IV SCH (05:11)
[2017-02-20] MEDS: ASPIRIN EC 81 MG TABEC PO SCH (08:43)
[2017-02-20] MEDS: MAGNESIUM OXIDE 400 MG TAB PO SCH (08:43)
[2017-02-20] MEDS: DOCUSATE SODIUM 100 MG CAP PO SCH ×2 (08:44→21:13)
[2017-02-20] MEDS: MULTIVITAMINS/MINERALS THERAPEUTIC TAB PO SCH (08:44)
[2017-02-20] MEDS: FERROUS SULFATE 325 MG (65 MG ELEMENTAL IRON) TAB PO SCH ×2 (08:44→18:35)
[2017-02-20] MEDS: APIXABAN 2.5 MG TABLET PO SCH ×2 (08:44→21:14)
[2017-02-20] MEDS: CARVEDILOL 3.125 MG TAB PO SCH ×2 (08:44→21:13)
[2017-02-20] MEDS: FUROSEMIDE 40 MG/4 ML VIAL IV PUSH SCH ×2 (08:45→18:35)
[2017-02-20] MEDS: SODIUM CHLORIDE 0.9% FLUSH 10 ML FLUSH IV FLUSH SCH ×2 (09:00→21:14)
[2017-02-20] MEDS ORDERED: AMIODARONE 200 MG TAB PO SCH (09:00)
[2017-02-20] MEDS ORDERED: ENALAPRIL MALEATE 10 MG TAB PO SCH (09:00)
[2017-02-20] MEDS ORDERED: Vancomycin Consult Pharmacy 1 EA OTHER SCH (09:15)
[2017-02-20] MEDS ORDERED: VANCOMYCIN INJ 1,000 MG in SODIUM CHLOR 0.9% 250 ML INJ 250 ML IV ONE (10:00)
[2017-02-20] MEDS: VANCOMYCIN INJ 1,500 MG in SODIUM CHLORID 0.9% 500 ML INJ 500 ML IV SCH (12:21)
[2017-02-20] MEDS ORDERED: METOLAZONE 5 MG TAB PO ONE (13:15)
--- NOTE | 2017-02-20 14:37 | PD.CAR.PN ---
CVT Progress Note Subjective/Hospital Course: 81/ male , HX severe worsening symptoms of dyspnea , with minimal levels of exertion. Underwent cardiac cath by Dr Khoury minimal CAD 30% in prox LAD, Echo showed EF 53% PMH: , chronic anemia ( on ferrous sulfate, hx of Bone Marrow BX ( neg Heme workup) Carotid artery disease , CHF, CKD stage 3, DM, HTN, HLP, min CAD Surgery: 02/04 Minimally invasive AVR with a 23 Intuity tissue valve, MARCELINO, Percutaneous femoral cannulation, Perclose arterial closure, Ultrasound guidance for access, Internal rib fixation. Afib postop discharge home 02/08 per ED note : readmitted via ED early this am , dyspnea x one day , unable to breathe at all at home, He reports that came on all of a sudden today, + fever at home. Reports of mild cough but productive of yellowish sputum. bilateral lower extremity edema worsening in the past few days. Called 911 Upon EMS arrival, patient was quite dyspneic with peripheral edema for which they had given him Lasix 80 mg IV with 4 mg morphine. He was brought into ER on C Pap. He also had documented fever of 103 upon arrival, initial blood pressure was 200 over 100s. According to the family members at the bedside, patient did have a chest x-ray and an echocardiogram just yesterday at Dr. Dietrich's office. They were told that everything was normal. WBC unremarkable, CXR small right pleural effusion, + pulm edema BNP >600, Trop 0.12 ( recent surgery) lactic acid 1.2, BC pending / possible early pneumonia Objective: GENERAL: SKIN: Warm and dry.incision intact and well approximated right chest , left groin incision site intact without erythema HEAD: Normocephalic. EYES: No scleral icterus. No injection or drainage. NECK: Supple, trachea midline. No JVD or lymphadenopathy. CARDIOVASCULAR: Regular rate and rhythm without murmurs, gallops, or rubs. + 1 edema lower ext RESPIRATORY: Breath sounds equal bilaterally, diminished in bases , few basilar crackles . No accessory muscle use. GASTROINTESTINAL: Abdomen soft, non-tender, nondistended. MUSCULOSKELETAL: No cyanosis, or edema. BACK: Nontender without obvious deformity. No CVA tenderness. Vital Signs Date Time Temp Pulse Resp B/P Pulse Ox O2 Delivery O2 Flow Rate FiO2 02/20/17 12:00 98.8 83 20 125/58 97 02/20/17 10:00 88 02/20/17 09:00 100 02/20/17 08:31 99 Nasal Cannula 3.00 02/20/17 08:00 88 02/20/17 07:30 99.7 85 20 122/57 99 02/20/17 07:00 90 02/20/17 04:48 97.9 86 102/55 96 02/20/17 03:42 97 Nasal Cannula 4.00 02/20/17 02:50 102.2 95 20 124/66 100 CPAP 02/20/17 02:36 100 35 02/20/17 02:11 103.1 100 20 153/75 100 CPAP 02/20/17 01:41 99 CPAP 02/20/17 01:41 20 100 CPAP 02/20/17 01:37 116 24 99 CPAP 02/20/17 01:34 103.1 102 25 203/100 99 02/20/17 01:30 95 7.00 02/20/17 01:30 94 100 Labs: Laboratory Tests Test 02/20/17 07:42 Total Creatine Kinase 52 U/L (39-308) Troponin I 0.12 NG/ML (0.02-0.05) Result Diagram: 02/20/17 0145 02/20/17 0145 Telemetry: afib (1) Aortic stenosis (2) Diastolic heart failure due to valvular disease Plan: agree with diuresis (3) S/P AVR (aortic valve replacement) Plan: may need repeat ECHO continue ASA (4) Hypertension (5) early pneumonia Plan: await Blood cultures , antibiotics (6) Diabetes mellitus (7) Chronic anemia (8) Pulmonary edema Mary Beth Mata Feb 20, 2017 14:37
--- NOTE | 2017-02-20 16:21 | MB ---
cc: SHARI STOKES M.D. DATE OF CONSULTATION: 02/20/2017 REASON FOR CONSULTATION Congestive heart failure. HISTORY OF PRESENT ILLNESS The patient is a very pleasant 81-year-old white male, followed in our office by Dr. Nicholas Dietrich, with a history of aortic stenosis status post minimally invasive aortic valve replacement on 02/04/2017, history of coronary artery disease, diabetes, who presented to the hospital last night with relatively acute onset shortness of breath. He was found to be in mild congestive heart failure and admitted for further evaluation and treatment. Since coming into hospital his dyspnea has considerably improved. He denies chest pain, dizziness, syncope, near-syncope, palpitations. Recently he has had problems with pedal edema which worsened in severity yesterday. He reports compliance with medications and a no added salt diet. Last night he also reports fever up to 103 degrees. In the last few days he has had a cough which has been overall nonproductive without definite hemoptysis. PAST MEDICAL HISTORY 1. Aortic stenosis status post minimally invasive aortic valve replacement 02/04/2017. On his preoperative cardiac catheterization he had mild coronary disease. 2. Possible history of congestive heart failure August 2015. 3. Diabetes. 4. Paroxysmal atrial fibrillation noted post aortic valve replacement. MEDICATIONS His cardiac medications at home: 1. Aspirin 81 mg daily. 2. Atorvastatin 40 mg q.h.s. 3. Carvedilol 3.125 mg b.i.d. 4. Enalapril 10 mg daily. ALLERGIES NO KNOWN DRUG ALLERGIES. FAMILY HISTORY Noncontributory. SOCIAL HISTORY The patient denies alcohol or tobacco abuse. REVIEW OF SYSTEMS Review of systems as in the history of present illness, otherwise negative or noncontributory. He also denies headache, abdominal pain, melena, dyspepsia, bright red blood per rectum, wheezing, chills. PHYSICAL EXAMINATION VITAL SIGNS: On physical examination his blood pressure is 125/58 with a pulse of 83, respirations 20. GENERAL: In general he is a well-developed, well-nourished white male in no acute distress. HEENT: Jugular venous pressure is 8 cm of water. Carotid pulses are 2+ bilaterally and without bruits. CHEST: Examination of the chest reveals bibasilar crackles, left greater than right. CARDIAC: On cardiac examination he has a regular rhythm and rate without S3-S4 or murmur. ABDOMEN: On abdominal examination he has a soft, nontender abdomen. Bowel sounds are present. There is no definite hepatosplenomegaly. EXTREMITIES: Examination of the extremities reveals no clubbing or cyanosis. There is 1+ pretibial edema bilaterally. LABORATORY DATA Laboratory data includes BUN 17, creatinine 1.03, troponin 0.12, potassium 3.9, WBC 9.7, hemoglobin 10.9, platelets 187. IMAGING STUDIES Chest x-ray shows increased interstitial markings as well as a right pleural effusion. EKG Shows possible sinus tachycardia, left bundle-branch block. The underlying rhythm also could be an atrial tachycardia or atrial flutter. IMPRESSION Acute congestive heart failure in this 81-year-old white male with a history of recent minimally invasive aortic valve replacement for aortic stenosis, history of mild coronary artery disease, diabetes. The precipitating factor for the congestive heart failure is not entirely clear. An echo in our office yesterday showed low normal left ventricular function with normal aortic valve replacement function, mild mitral regurgitation and mild to moderate tricuspid regurgitation. His chest x-ray here in the hospital is indeed most suggestive of congestive heart failure. There is overall no evidence for acute coronary syndrome. His preoperative cardiac catheterization reportedly showed only mild coronary disease. The slightly elevated troponin level may be due to congestive heart failure. Review of his postoperative EKGs does show atrial fibrillation. He may have developed a recurrent atrial fibrillation resulting in the congestive heart failure. The patient also presents with fever, and there is the possibility of infection from recent the aortic valvular surgery, whether endocarditis or perivalvular abscess. RECOMMENDATIONS 1. Continue intravenous furosemide diuresis. 2. Continue his usual home cardiac medications. 3. Continue Eliquis and consider resuming amiodarone. 4. Consider transesophageal echocardiography. MD RAJANI Oconnell/SHELLIE /1:04 PM /3:50 PM MTDSherrie
--- NOTE | 2017-02-20 16:47 | EKG ---
Date Performed: 02/20/2017 Time Performed: 15:46:43 PTAGE: 81 years EKG: Sinus rhythm LEFT BUNDLE BRANCH BLOCK ABNORMAL ECG COMPARED TO PRIOR ELECTROCARDIOGRAM, Rate has slowed. PREVIOUS TRACING : 02/20/2017 01.36 DOCTOR: Nicholas Dietrich Interpretating Date/Time 02/20/2017 16:47:11
--- NOTE | 2017-02-20 17:46 | EKG ---
Date Performed: 02/20/2017 Time Performed: 01:36:38 PTAGE: 81 years EKG: Atrial fibrillation with rapid ventricular response LEFT BUNDLE BRANCH BLOCK ABNORMAL ECG C ompared to prior study of 02/07/2017, the rate is faster. PREVIOUS TRACING : 02/07/2017 10.23 DOCTOR: Elvis Sarkar Interpretating Date/Time 02/20/2017 17:45:23
[2017-02-20] MEDS ORDERED: PLEASE DISCONTINUE PREVIOUS SUPPLEMENTAL SCALE INSULIN ORDERS ONE (19:45)
[2017-02-20] MEDS ORDERED: GLUCAGON 1 MG/ML VIAL OTHER PRN (19:45)
[2017-02-20] MEDS ORDERED: DEXTROSE 50% IN WATER 50 ML VIAL(D50) IV PUSH PRN (19:45)
[2017-02-20] MEDS: HIGH DOSE INSULIN NOVOLOG SUPPLEMENTAL SCALE SQ SCH (21:00)
[2017-02-20] MEDS: ATORVASTATIN 40 MG TAB PO SCH (21:13)
--- NOTE | 2017-02-20 21:13 | MB ---
cc: BALJIT HOLLAND MD DATE OF CONSULTATION 02/20/[address] Keller REASON FOR CONSULTATION Positive blood cultures. HISTORY OF PRESENT ILLNESS This is an 81-year-old white male who is status post minimally invasive aortic valve replacement with a 23 Intuity tissue valve on 02/04/2017. The patient had developed atrial fibrillation postop. He was discharged home and he was doing fairly well. His and daughter are at the bedside. He mentioned that he was doing exercises, walking and was not having any difficulty. However, yesterday he developed sudden onset of shakes and fever and also shortness of breath and they noted that his legs had become edematous. He also was noted to have a mild cough producing yellow sputum. The patient states that he felt very poorly. 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 Blood cultures were drawn earlier this morning and already all four bottles have gram-positive cocci showing. The patient has blankets covering currently while he is sitting up in the bedside recliner chair. He states that he feels a little better but still feels weak. He was started on IV antibiotics and received vancomycin dose earlier and was also started on Levaquin. Admission chest x-ray showed pulmonary edema with small right pleural effusion. Urinalysis was unremarkable. His white blood cell count is 9.7 with 90% neutrophils. The patient denies chest pain around the time of the surgery The patient denies other symptoms. He has no nausea or vomiting, abdominal pain, back pain or dysuria. PAST MEDICAL HISTORY 1. Hypertension, 2. Diabetes mellitus 3. Chronic kidney disease stage III 4. Chronic anemia, 5. Hyperlipidemia, 6. Coronary artery disease, 7. 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 8. Right knee replacement ALLERGIES NO KNOWN DRUG ALLERGIES. MEDICATIONS 1. Vancomycin. 2. Flomax. 3. Lipitor 4. Eliquis 5. Ecotrin. 6. Coreg. 7. Colace. 8. Ferrous sulfate 9. Theragran. 10. Lasix. 11. Levaquin. SOCIAL HISTORY The patient is . No alcohol. No tobacco, no illicit drugs. FAMILY HISTORY Noncontributory. REVIEW OF SYSTEMS Pertinent as mentioned in history of present illness. Otherwise negative on 10-point review. PHYSICAL EXAMINATION GENERAL: This is a slender, elderly male who is awake but appears somewhat lethargic. VITAL SIGNS: Temperature 97.7, BP 144/63, respirations 18, heart rate 98. HEENT: The head is atraumatic. Extraocular movements grossly intact, pupils reactive to light. No icterus. No conjunctival erythema. Oropharynx has no visible lesions. Moist mucosa. NECK: Supple without adenopathy. LUNGS: Decreased breath sounds throughout. HEART: Decreased heart sounds without audible murmurs. ABDOMEN: Bowel sounds present, soft, nontender. RECTAL: Not performed. EXTREMITIES: Both lower extremities have edema, the left greater than the right. The left side has approximately 2+ pitting up to the midcalf. The upper extremities have no edema. No splinter hemorrhages. No peripheral embolic phenomena. SKIN: No rash. NEUROLOGIC: Nonfocal. PSYCHIATRIC: The patient is calm and cooperative. LABORATORY DATA WBC 9.7, platelets 187, hemoglobin 10.9, 90% neutrophils. Creatinine 1.03, BUN 17, estimated GFR 69. LFTs normal. Sodium 138. Urinalysis was unremarkable. IMPRESSION 1. Bacteremia with gram-positive cocci. 2. Status post minimally invasive AVR replacement on 02/04/2017 with a tissue valve. 3. Fever secondary to infection. The patient very likely may have infection related to the recent surgery. We need to make sure he does not have a paravalvular infection which spread to the blood stream. I doubt the bacterial infection from the blood came from his lungs. RECOMMENDATIONS 1. Transesophageal echocardiogram to evaluate the heart valve and perivalvular area. This has been discussed with Dr. Chase. 2. Continue vancomycin 3. Discontinue Levaquin 4. Monitor the identity and sensitivity of the blood cultures. The patient already appears to be clinically better with less chills and improvement in his temperature so far. Thank you for this consultation. The plan has been discussed with the patient's daughter and who are at bedside. Baljit Holland MD FD/ /4:56 PM /8:49 PM
[2017-02-20] MEDS: TAMSULOSIN HCL 0.4 MG CAP PO SCH (21:14)
[2017-02-21] VITALS (30 sets, daily range): BP systolic 95–116; BP diastolic 48–54; PULSE 64–109; RESP 18–19; TEMP 98.1–98.6; O2SAT 95–100
[2017-02-21] MEDS: LEVOFLOXACIN 750 MG PREMIX INJ 150 ML IV SCH (05:19)
[2017-02-21] MEDS: HIGH DOSE INSULIN NOVOLOG SUPPLEMENTAL SCALE SQ SCH ×4 (06:18→21:00)
[2017-02-21 06:59] LABS: AUTOMATED NEUTROPHIL # 4.9 TH/MM3 (1.8-7.7); BASOPHIL % 0.7 % (0.0-2.0); EOSINOPHIL % 0.1 % (0.0-4.0); HEMATOCRIT 24.6 % (39.0-51.0); LYMPH % 7.5 % (9.0-44.0); LYMPHOCYTE # 0.4 TH/MM3 (1.0-4.8); MEAN CELL VOLUME 84.3 FL (80.0-100.0); MEAN CORPUSCULAR HEMOGLOBIN 27.4 PG (27.0-34.0); MEAN CORPUSCULAR HGB CONC 32.5 % (32.0-36.0); MONO % 8.5 % (0.0-8.0); NEUT % 83.2 % (16.0-70.0); PLATELET COUNT 121 TH/MM3 (150-450); RED BLOOD COUNT 2.91 MIL/MM3 (4.50-5.90); RED CELL DISTRIBUTION WIDTH 15.1 % (11.6-17.2); WHITE BLOOD COUNT 5.8 TH/MM3 (4.0-11.0)
[2017-02-21 07:04] LABS: HEMO FLAGS AUTO DIFF
[2017-02-21 07:28] LABS: POTASSIUM 3.1 MEQ/L (3.5-5.1)
[2017-02-21] MEDS ORDERED: MIDAZOLAM HCL 5 MG/5 ML VIAL IV PUSH ONE (08:00)
[2017-02-21 08:09] LABS: OVALOCYTES 1+ (NORMAL); PLATELET ESTIMATE SMEAR LOW (NORMAL)
[2017-02-21 08:10] LABS: PLATELET MORPHOLOGY NORMAL (NORMAL); SCAN/DIFF AUTO DIFF CONFIRMED
[2017-02-21] MEDS ORDERED: PROPOFOL 500 MG/50 ML INJ 50 ML ONE (08:13)
[2017-02-21] MEDS ORDERED: MIDAZOLAM HCL 5 MG/ML VIAL (1 ML) ONE (08:19)
[2017-02-21] MEDS: FUROSEMIDE 40 MG/4 ML VIAL IV PUSH SCH ×2 (09:00→18:22)
--- NOTE | 2017-02-21 09:07 | PD.CARD.PN ---
Subjective Subjective Remarks Dyspnea much better. No CP, dizziness, palpitations, fever, chills, nausea. Objective Medications Item Value Date Time Atorvastatin 40 mg 02/20/17 2100 Calcium HS/PO 02/20/172112 (Lipitor) Apixaban 2.5 mg 02/20/17899 (Eliquis) BID/PO 02/20/172113 Aspirin 81 mg 02/20/17899 (Ecotrin Ec) DAILY/PO 02/20/1743 Carvedilol 3.125 mg 02/20/1700 (Coreg) BID/PO 02/20/172112 Furosemide 40 mg 02/20/17899 (Lasix Inj) BID@/IV PUSH 02/20/17 183 Vital Signs / I&O Vital Signs Date Time Temp Pulse Resp B/P Pulse Ox O2 Delivery O2 Flow Rate FiO2 02/21/17 07:45 98.3 75 19 100/49 100 02/21/17 07:30 98 Nasal Cannula 1.50 02/21/17 05:00 79 02/21/17 04:44 98.6 64 18 100/49 96 02/21/17 04:00 80 02/21/17 03:00 81 02/21/17 02:00 74 02/21/17 01:00 76 02/21/17 00:00 78 02/20/17 23:20 98.6 81 18 111/57 96 02/20/17 23:00 93 02/20/17 22:00 88 02/20/17 21:00 90 02/20/17 20:27 94 Nasal Cannula 1.50 02/20/17 20:00 90 02/20/17 19:15 98.6 92 18 126/66 96 02/20/17 19:00 95 02/20/17 16:00 97.7 98 18 144/63 93 02/20/17 12:00 98.8 83 20 125/58 97 02/20/17 10:00 88 02/20/17 09:00 100 I/O 02/20/17 02/20/17 02/20/17 02/21/17 02/21/17 02/21/17 07:00 15:00 23:00 07:00 15:00 23:00 Intake Total 480 ml Output Total 400 ml 1500 ml Balance -400 ml -1020 ml Intake Oral 480 ml Output Urine Total 400 ml 1500 ml Physical Exam GENERAL: Well developed, well nourished. No acute distress. HEENT: Jugular venous pressure is normal. CHEST: Lungs clear to auscultation bilaterally. Unlabored respiratory effort. CARDIAC: Regular rate and rhythm without S3, S4. I/ systolic murmur lower left sternal border. ABDOMEN: Soft, nontender, no hepatosplenomegaly. Bowel sounds present. EXTREMITIES: No clubbing, cyanosis. Trace edema. Laboratory Laboratory Tests Test 02/20/17 02/21/17 14:30 05:34 Total Creatine Kinase 37 U/L Troponin I 0.08 NG/ML White Blood Count 5.8 TH/MM3 Red Blood Count 2.91 MIL/MM3 Hemoglobin 8.0 GM/DL Hematocrit 24.6 % Mean Corpuscular Volume 84.3 FL Mean Corpuscular Hemoglobin 27.4 PG Mean Corpuscular Hemoglobin 32.5 % Concent Red Cell Distribution Width 15.1 % Platelet Count 121 TH/MM3 Mean Platelet Volume 8.1 FL Neutrophils (%) (Auto) 83.2 % Lymphocytes (%) (Auto) 7.5 % Monocytes (%) (Auto) 8.5 % Eosinophils (%) (Auto) 0.1 % Basophils (%) (Auto) 0.7 % Neutrophils # (Auto) 4.9 TH/MM3 Lymphocytes # (Auto) 0.4 TH/MM3 Monocytes # (Auto) 0.5 TH/MM3 Eosinophils # (Auto) 0.0 TH/MM3 Basophils # (Auto) 0.0 TH/MM3 CBC Comment AUTO DIFF Differential Comment AUTO DIFF CONFIRMED Platelet Estimate LOW Platelet Morphology Comment NORMAL Ovalocytes 1+ Sodium Level 137 MEQ/L Potassium Level 3.1 MEQ/L Chloride Level 98 MEQ/L Carbon Dioxide Level 30.0 MEQ/L Anion Gap 9 MEQ/L Blood Urea Nitrogen 22 MG/DL Creatinine 1.21 MG/DL Estimat Glomerular Filtration 57 ML/MIN Rate Random Glucose 115 MG/DL Calcium Level 8.3 MG/DL Assessment and Plan Problem List: (1) Congestive heart failure (CHF) Assessment and Plan: Symptomatically much improved after good diuresis since admission. Precipitating factor unclear, may have element of diastolic dysfunction, may have had an atrial fibrillation recurrence. EF 55% by MARCELINO today. AVR function and appearance unremarkable. REC continue beta bharti; BP's probably too low to continue ETHAN-I can change to oral furosemide will f/u as needed; OK for discharge from a cardiac standpoint (2) Bacteremia Assessment and Plan: No definite evidence for vegetation or perivalvular abscess on MARCELINO. Would still consider prolonged course of antibiotics. (3) Paroxysmal atrial fibrillation Assessment and Plan: Remains in sinus rhythm. Continue apixaban. (4) S/P AVR (aortic valve replacement) Assessment and Plan: AVR appearance function normal on MARCELINO today. (5) CAD (coronary artery disease) Assessment and Plan: Only mild CAD on recent preop cath. No angina symptoms. Code Status full code Discussed Condition With patient Problem Qualifiers (1) Congestive heart failure (CHF): Qualified Code: I50.9 - Acute congestive heart failure, unspecified congestive heart failure type (2) CAD (coronary artery disease): Qualified Code: I25.10 - Coronary artery disease involving [place] coronary artery of tanana heart without angina pectoris Jad Chase MD Feb 21, 2017 09:07
--- NOTE | 2017-02-21 09:42 | ETE ---
Study Study Date:02/21/2017 STUDY CONCLUSIONS SUMMARY - Study data: Transesophageal echocardiography. The patient tolerated the procedure well. - Procedure narrative: Sedation. Conscious sedation was administered by cardiology staff. - Adverse outcomes: There were no complications. - Left ventricle: The cavity size was normal. Wall thickness was normal. Systolic function was normal. The estimated ejection fraction was in the range of 50% to 55%. Wall motion was normal; there were no regional wall motion abnormalities. - Aortic valve: Well-seated, normally functioning aortic bioprosthetic valve. No definite perivalvular leak or abscess. No evidence of vegetation. Trace regurgitation. - Mitral valve: No evidence of vegetation. Trace regurgitation. - Left atrium: No evidence of thrombus in the atrial cavity or appendage. - Right atrium: No evidence of thrombus in the atrial cavity or appendage. - Tricuspid valve: No evidence of vegetation. Mild regurgitation. - Pulmonic valve: Not well visualized due to acoustic shadowing from the aortic valve. No evidence of vegetation. If LV function is below 40, please consider prescribing an ACEI or ARB or document rationale for non-use. PROCEDURE DATA Consent: The risks, benefits, and alternatives to the procedure were explained to the patient and informed consent was obtained. Procedure: Initial setup. The patient was brought to the laboratory in the fasting state. Intravenous access was obtained. Surface ECG leads and pulse oximetric signals were monitored. Sedation. Conscious sedation was administered by cardiology staff. Transesophageal echocardiography. Topical anesthesia was obtained using viscous lidocaine. A transesophageal probe was inserted by the attending database development project manager. Image quality was good. Study completion: All IVs inserted during the procedure were removed. The patient tolerated the procedure well. There were no complications. Transesophageal echocardiography. 2D, complete spectral Doppler, and color Doppler. CARDIAC ANATOMY LEFT VENTRICLE: The cavity size was normal. Wall thickness was normal. Systolic function was normal. The estimated ejection fraction was in the range of 50% to 55%. Wall motion was normal; there were no regional wall motion abnormalities. AORTIC VALVE: Well-seated, normally functioning aortic bioprosthetic valve. No definite perivalvular leak or abscess. Cusp separation was normal. No evidence of vegetation. Doppler: Trace regurgitation. Aorta: - There was no atheroma. There was no evidence for dissection. Aortic root: The aortic root was not dilated. Ascending aorta: The ascending aorta was normal in size. Aortic arch: The aortic arch was normal in size. Descending aorta: The descending aorta was normal in size. MITRAL VALVE: Structurally normal valve. Leaflet separation was normal. No evidence of vegetation. Doppler: Trace regurgitation. LEFT ATRIUM: The atrium was normal in size. No evidence of thrombus in the atrial cavity or appendage. The appendage was morphologically a left appendage, multilobulated, and of normal size. Emptying velocity was normal. RIGHT VENTRICLE: The cavity size was normal. Wall thickness was normal. Systolic function was normal. PULMONIC VALVE: Not well visualized due to acoustic shadowing from the aortic valve. No evidence of vegetation. TRICUSPID VALVE: Structurally normal valve. Leaflet separation was normal. No evidence of vegetation. Doppler: Mild regurgitation. PULMONARY ARTERY: The main pulmonary artery was normal-sized. RIGHT ATRIUM: The atrium was normal in size. No evidence of thrombus in the atrial cavity or appendage. The appendage was morphologically a right appendage. PERICARDIUM: There was no pericardial effusion. Prepared and signed by Jad Chase [id number]
[2017-02-21] MEDS ORDERED: POTASSIUM CHLORIDE 10 MEQ CONTROLLED RELEASE TAB PO ONE (09:45)
[2017-02-21] MEDS: DOCUSATE SODIUM 100 MG CAP PO SCH ×2 (10:38→21:47)
[2017-02-21] MEDS: CARVEDILOL 3.125 MG TAB PO SCH ×2 (10:39→21:47)
[2017-02-21] MEDS: APIXABAN 2.5 MG TABLET PO SCH ×2 (10:39→21:48)
[2017-02-21] MEDS: MAGNESIUM OXIDE 400 MG TAB PO SCH (10:39)
[2017-02-21] MEDS: FERROUS SULFATE 325 MG (65 MG ELEMENTAL IRON) TAB PO SCH ×2 (10:39→18:20)
[2017-02-21] MEDS: ASPIRIN EC 81 MG TABEC PO SCH (10:40)
[2017-02-21] MEDS: SODIUM CHLORIDE 0.9% FLUSH 10 ML FLUSH IV FLUSH SCH ×2 (10:40→21:36)
[2017-02-21] MEDS: MULTIVITAMINS/MINERALS THERAPEUTIC TAB PO SCH (10:40)
--- NOTE | 2017-02-21 13:50 | PD.CAR.PN ---
CVT Progress Note Subjective/Hospital Course: 81/ male , HX severe worsening symptoms of dyspnea , with minimal levels of exertion. Underwent cardiac cath by Dr Khoury minimal CAD 30% in prox LAD, Echo showed EF 53% PMH: , chronic anemia ( on ferrous sulfate, hx of Bone Marrow BX ( neg Heme workup) Carotid artery disease , CHF, CKD stage 3, DM, HTN, HLP, min CAD Surgery: 02/04 Minimally invasive AVR with a 23 Intuity tissue valve, MARCELINO, Percutaneous femoral cannulation, Perclose arterial closure, Ultrasound guidance for access, Internal rib fixation. Afib postop discharge home 02/08 per ED note : readmitted via ED early this am , dyspnea x one day , unable to breathe at all at home, He reports that came on all of a sudden today, + fever at home. Reports of mild cough but productive of yellowish sputum. bilateral lower extremity edema worsening in the past few days. Called 911 Upon EMS arrival, patient was quite dyspneic with peripheral edema for which they had given him Lasix 80 mg IV with 4 mg morphine. He was brought into ER on C Pap. He also had documented fever of 103 upon arrival, initial blood pressure was 200 over 100s. According to the family members at the bedside, patient did have a chest x-ray and an echocardiogram just yesterday at Dr. Dietrich's office. They were told that everything was normal. WBC unremarkable, CXR small right pleural effusion, + pulm edema BNP >600, Trop 0.12 ( recent surgery) lactic acid 1.2, BC pending / possible early pneumonia 02/21 pt less dyspneic, no further chills, no further fevers BC group D enterococcus 01/28 cultures/ ABX per ID MARCELINO noted: normal functioning bioprosthetic valve , Aortic valve: no perivalvular leak or abscess, no vegetation Mitral valve : no vegetation, Tricuspid valve : no vegetation , no pericardial effusion Objective: GENERAL: SKIN: Warm and dry.color improved HEAD: Normocephalic. EYES: No scleral icterus. No injection or drainage. NECK: Supple, trachea midline. No JVD or lymphadenopathy. CARDIOVASCULAR: Regular rate and rhythm without murmurs, gallops, or rubs. + 1 edema lower ext , improving RESPIRATORY: Breath sounds equal bilaterally diminished in bases No accessory muscle use. GASTROINTESTINAL: Abdomen soft, non-tender, nondistended. MUSCULOSKELETAL: No cyanosis, or edema. BACK: Nontender without obvious deformity. No CVA tenderness. Vital Signs Date Time Temp Pulse Resp B/P Pulse Ox O2 Delivery O2 Flow Rate FiO2 02/21/17 11:45 98.4 72 19 98/53 98 02/21/17 08:02 97 2.00 02/21/17 07:45 98.3 75 19 100/49 100 02/21/17 07:30 98 Nasal Cannula 1.50 02/21/17 05:00 79 02/21/17 04:44 98.6 64 18 100/49 96 02/21/17 04:00 80 02/21/17 03:00 81 02/21/17 02:00 74 02/21/17 01:00 76 02/21/17 00:00 78 02/20/17 23:20 98.6 81 18 111/57 96 02/20/17 23:00 93 02/20/17 22:00 88 02/20/17 21:00 90 02/20/17 20:27 94 Nasal Cannula 1.50 02/20/17 20:00 90 02/20/17 19:15 98.6 92 18 126/66 96 02/20/17 19:00 95 02/20/17 16:00 97.7 98 18 144/63 93 Labs: Laboratory Tests Test 02/21/17 05:34 White Blood Count 5.8 TH/MM3 (4.0-11.0) Red Blood Count 2.91 MIL/MM3 (4.50-5.90) Hemoglobin 8.0 GM/DL (13.0-17.0) Hematocrit 24.6 % (39.0-51.0) Mean Corpuscular Volume 84.3 FL (80.0-100.0) Mean Corpuscular Hemoglobin 27.4 PG (27.0-34.0) Mean Corpuscular Hemoglobin 32.5 % Concent (32.0-36.0) Red Cell Distribution Width 15.1 % (11.6-17.2) Platelet Count 121 TH/MM3 (150-450) Mean Platelet Volume 8.1 FL (7.0-11.0) Neutrophils (%) (Auto) 83.2 % (16.0-70.0) Lymphocytes (%) (Auto) 7.5 % (9.0-44.0) Monocytes (%) (Auto) 8.5 % (0.0-8.0) Eosinophils (%) (Auto) 0.1 % (0.0-4.0) Basophils (%) (Auto) 0.7 % (0.0-2.0) Neutrophils # (Auto) 4.9 TH/MM3 (1.8-7.7) Lymphocytes # (Auto) 0.4 TH/MM3 (1.0-4.8) Monocytes # (Auto) 0.5 TH/MM3 (0-0.9) Eosinophils # (Auto) 0.0 TH/MM3 (0-0.4) Basophils # (Auto) 0.0 TH/MM3 (0-0.2) CBC Comment AUTO DIFF Differential Comment AUTO DIFF CONFIRMED Platelet Estimate LOW (NORMAL) Platelet Morphology Comment NORMAL (NORMAL) Ovalocytes 1+ (NORMAL) Sodium Level 137 MEQ/L (136-145) Potassium Level 3.1 MEQ/L (3.5-5.1) Chloride Level 98 MEQ/L (98-107) Carbon Dioxide Level 30.0 MEQ/L (21.0-32.0) Anion Gap 9 MEQ/L (5-15) Blood Urea Nitrogen 22 MG/DL (7-18) Creatinine 1.21 MG/DL (0.60-1.30) Estimat Glomerular Filtration 57 ML/MIN (>89) Rate Random Glucose 115 MG/DL (74-106) Calcium Level 8.3 MG/DL (8.5-10.1) Result Diagram: 02/21/17 0534 02/21/17 0534 Cardiovascular: afib rate controlled (1) Congestive heart failure (CHF) Plan: Symptomatically much improved after good diuresis since admission. Precipitating factor unclear, may have element of diastolic dysfunction, may have had an atrial fibrillation recurrence. EF 55% by MARCELINO today. AVR function and appearance unremarkable. REC continue beta bharti; BP's probably too low to continue ETHAN-I can change to oral furosemide (2) Bacteremia Plan: No definite evidence for vegetation or perivalvular abscess on MARCELINO. Would still consider prolonged course of antibiotics. (3) Paroxysmal atrial fibrillation Plan: Remains in sinus rhythm. Continue apixaban. (4) S/P AVR (aortic valve replacement) Plan: AVR appearance function normal on MARCELINO today. (5) CAD (coronary artery disease) Plan: Only mild CAD on recent preop cath. No angina symptoms. Problem Qualifiers (1) Congestive heart failure (CHF): Qualified Code: I50.9 - Acute congestive heart failure, unspecified congestive heart failure type (2) CAD (coronary artery disease): Qualified Code: I25.10 - Coronary artery disease involving [place] coronary artery of [place]well heart without angina pectoris Mary Beth Mata Feb 21, 2017 13:50
[2017-02-21] MEDS: VANCOMYCIN INJ 1,500 MG in SODIUM CHLORID 0.9% 500 ML INJ 500 ML IV SCH (14:02)
--- NOTE | 2017-02-21 19:06 | HHI.IDPN ---
Note Infectious Disease Note Patient feels great. Ambulating halls. feels 100% better. No chills. No chest pain. Afebrile. Blood culture has group D enterococcus preliminary. MARCELINO - no vegetations. Presented with sudden onset of shakes and fever and also shortness of breath and his legs had become edematous. He also was noted to have a mild cough producing yellow sputum. PAST MEDICAL HISTORY 1. Hypertension, 2. Diabetes mellitus 3. Chronic kidney disease stage III 4. Chronic anemia, 5. Hyperlipidemia, 6. Coronary artery disease, 7. 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 8. Right knee replacement ALLERGIES NO KNOWN DRUG ALLERGIES. Current Medications Medications (Trade) Dose Ordered Sig/Geoff Route PRN Reason Start Time Stop Time Status Last Admin Dose Admin Sodium Chloride (NS Flush) 2 ml UNSCH PRN IV FLUSH FLUSH AFTER USING IV ACCESS 02/20/17 02:45 Sodium Chloride (NS Flush) 2 ml BID IV FLUSH 02/20/17 09:00 02/21/17 10:40 Naloxone HCl 0.4 mg 0.4 mg UNSCH PRN IV SEE LABEL COMMENTS 02/20/17 02:45 Levofloxacin/ Dextrose (Levaquin 750 Mg Premix Inj) 150 ml @ 100 mls/hr Q24H IV 02/20/17 05:00 02/21/17 05:19 Apixaban (Eliquis) 2.5 mg BID PO 02/20/17 09:00 02/21/17 10:39 Aspirin (Ecotrin Ec) 81 mg DAILY PO 02/20/17 09:00 02/21/17 10:40 Atorvastatin Calcium (Lipitor) 40 mg HS PO 02/20/17 21:00 02/20/17 21:13 Carvedilol (Coreg) 3.125 mg BID PO 02/20/17 09:00 02/21/17 10:39 Magnesium Oxide (Mag-Ox) 400 mg DAILY PO 02/20/17 09:00 02/21/17 10:39 Tamsulosin HCl (Flomax) 0.4 mg HS PO 02/20/17 21:00 02/20/17 21:14 Docusate Sodium (Colace) 100 mg BID PO 02/20/17 09:00 02/21/17 10:38 Ferrous Sulfate (Ferrous Sulfate) 325 mg BIDPC PO 02/20/17 09:00 02/21/17 18:20 Multivitamins/ Minerals Therapeutic (Theragran M Tab) 1 tab DAILY PO 02/20/17 09:00 02/21/17 10:40 Furosemide 40 mg 40 mg BID@,18 IV PUSH 02/20/17 09:00 02/21/17 18:22 Pharmacy Profile Note 0 ml @ 0 mls/hr UNSCH OTHER 02/20/17 09:15 Vancomycin HCl/ Sodium Chloride (Vancomycin Inj/ NS 500 ml Inj) 515 ml @ 250 mls/hr Q24H IV 02/20/17 12:00 02/21/17 14:02 Miscellaneous Information SPECIFIC LAB TO BE DRAWN:VANCOMYCIN TROUGH DATE TO... ONCE ONCE .XX 02/23/17 11:45 02/23/17 11:46 Dextrose (D50w (Vial) Inj) 25 ml UNSCH PRN IV PUSH HYPOGLYCEMIA - SEE COMMENTS 02/20/17 19:45 Glucagon (Glucagon Inj) 1 mg UNSCH PRN OTHER HYPOGLYCEMIA-SEE COMMENTS 02/20/17 19:45 Potassium Chloride (KCl) 10 meq BID PO 02/21/17 21:00 SOCIAL HISTORY The patient is . No alcohol. No tobacco, no illicit drugs. FAMILY HISTORY Noncontributory. OBJECTIVE: Vital Signs Date Time Temp Pulse Resp B/P Pulse Ox O2 Delivery O2 Flow Rate FiO2 02/21/17 18:34 74 02/21/17 18:20 113/52 02/21/17 17:00 74 02/21/17 16:00 68 02/21/17 15:40 98.1 69 19 95/48 96 02/21/17 15:00 70 02/21/17 14:52 109 02/21/17 13:00 72 02/21/17 12:00 74 02/21/17 11:45 98.4 72 19 98/53 98 02/21/17 11:00 69 02/21/17 10:00 70 02/21/17 08:02 97 2.00 02/21/17 08:00 72 02/21/17 07:45 98.3 75 19 100/49 100 02/21/17 07:30 98 Nasal Cannula 1.50 02/21/17 07:00 74 02/21/17 05:00 79 02/21/17 04:44 98.6 64 18 100/49 96 4/28/17 04:00 80 02/21/17 03:00 81 02/21/17 02:00 74 02/21/17 01:00 76 02/21/17 00:00 78 02/20/17 23:20 98.6 81 18 111/57 96 02/20/17 23:00 93 02/20/17 22:00 88 02/20/17 21:00 90 02/20/17 20:27 94 Nasal Cannula 1.50 02/20/17 20:00 90 02/20/17 19:15 98.6 92 18 126/66 96 02/20/17 19:00 95 Laboratory Tests Test 02/20/17 02/21/17 01:45 05:34 White Blood Count 9.7 TH/MM3 5.8 TH/MM3 Red Blood Count 3.96 MIL/MM3 2.91 MIL/MM3 Hemoglobin 10.9 GM/DL 8.0 GM/DL Hematocrit 33.8 % 24.6 % Mean Corpuscular Volume 85.3 FL 84.3 FL Mean Corpuscular Hemoglobin 27.5 PG 27.4 PG Mean Corpuscular Hemoglobin 32.3 % 32.5 % Concent Red Cell Distribution Width 15.3 % 15.1 % Platelet Count 187 TH/MM3 121 TH/MM3 Mean Platelet Volume 8.2 FL 8.1 FL Neutrophils (%) (Auto) 90.4 % 83.2 % Lymphocytes (%) (Auto) 3.4 % 7.5 % Monocytes (%) (Auto) 5.7 % 8.5 % Eosinophils (%) (Auto) 0.3 % 0.1 % Basophils (%) (Auto) 0.2 % 0.7 % Neutrophils # (Auto) 8.8 TH/MM3 4.9 TH/MM3 Lymphocytes # (Auto) 0.3 TH/MM3 0.4 TH/MM3 Monocytes # (Auto) 0.6 TH/MM3 0.5 TH/MM3 Eosinophils # (Auto) 0.0 TH/MM3 0.0 TH/MM3 Basophils # (Auto) 0.0 TH/MM3 0.0 TH/MM3 CBC Comment DIFF FINAL AUTO DIFF Differential Comment AUTO DIFF CONFIRMED Platelet Estimate LOW Platelet Morphology Comment NORMAL Ovalocytes 1+ Laboratory Tests Test 02/20/17 02/20/17 02/20/17 02/21/17 01:45 07:42 14:30 05:34 Sodium Level 138 MEQ/L 137 MEQ/L Potassium Level 3.9 MEQ/L 3.1 MEQ/L Chloride Level 103 MEQ/L 98 MEQ/L Carbon Dioxide Level 25.5 MEQ/L 30.0 MEQ/L Anion Gap 10 MEQ/L 9 MEQ/L Blood Urea Nitrogen 17 MG/DL 22 MG/DL Creatinine 1.03 MG/DL 1.21 MG/DL Estimat Glomerular Filtration 69 ML/MIN 57 ML/MIN Rate Random Glucose 180 MG/DL 115 MG/DL Lactic Acid Level 1.2 mmol/L Calcium Level 8.9 MG/DL 8.3 MG/DL Magnesium Level 1.6 MG/DL Total Bilirubin 0.8 MG/DL Aspartate Amino Transf 31 U/L (AST/SGOT) Alanine Aminotransferase 51 U/L (ALT/SGPT) Alkaline Phosphatase 90 U/L Troponin I LESS THAN 0.02 0.12 NG/ML 0.08 NG/ML NG/ML B-Type Natriuretic Peptide 661 PG/ML Total Protein 7.2 GM/DL Albumin 3.8 GM/DL Total Creatine Kinase 52 U/L 37 U/L Microbiology Date/Time Procedure Status Source Growth 02/20/17 01:40 Aerobic Blood Culture - Preliminary Resulted Blood Peripheral Group D Enterococcus 02/20/17 01:40 Anaerobic Blood Culture - Preliminary Resulted Group D Enterococcus 02/20/17 01:45 Aerobic Blood Culture - Preliminary Resulted Blood Peripheral Group D Enterococcus 02/20/17 01:45 Anaerobic Blood Culture - Preliminary Resulted Group D Enterococcus PHYSICAL EXAMINATION GENERAL: This is a slender, elderly male who is awake but appears somewhat lethargic. HEENT: Extraocular movements grossly intact, pupils reactive to light. No icterus. No conjunctival erythema. Oropharynx has no visible lesions. Moist mucosa. NECK: Supple without adenopathy. LUNGS: Decreased breath sounds throughout. HEART: Decreased heart sounds without audible murmurs. ABDOMEN: Bowel sounds present, soft, nontender. EXTREMITIES: Decreased edema. No peripheral embolic phenomena. SKIN: No rash. NEUROLOGIC: Nonfocal. PSYCHIATRIC: The patient is calm and cooperative. IMPRESSION 1. Bacteremia with group D enterococcus. ? etiology. 2. Status post minimally invasive AVR replacement on 02/04/2017 with a tissue valve. 3. Fever secondary to infection. RECOMMENDATIONS 1. Discontinue vancomycin 2. Discontinue Levaquin 3. Start Ampicillin IV. 4. Start Gentamycin and monitor renal function. 5. Monitor the identity and sensitivity of the blood cultures. If VRE antibiotics may need to be changed. 6. Repeat blood culture. Even with negative MARCELINO, I plan to give patient a long course of antibiotics since no source of the strep and recent AVR. Dr Rios covering for ID this weekend. Deven Holland MD Feb 21, 2017 19:06
[2017-02-21] MEDS: GENTAMICIN 80 MG PREMIX 100 ML IV SCH (20:20)
[2017-02-21] MEDS: AMPICILLIN INJ 2,000 MG in SODIUM CHLORIDE 0.9% INJ 100 ML IV SCH (21:36)
[2017-02-21] MEDS: POTASSIUM CHLORIDE 10 MEQ CAP PO SCH (21:47)
[2017-02-21] MEDS: ATORVASTATIN 40 MG TAB PO SCH (21:47)
[2017-02-21] MEDS: TAMSULOSIN HCL 0.4 MG CAP PO SCH (21:48)
[2017-02-22] VITALS (32 sets, daily range): BP systolic 105–129; BP diastolic 52–73; PULSE 66–88; RESP 17–19; TEMP 97.6–98.7; O2SAT 94–98
[2017-02-22] MEDS: AMPICILLIN INJ 2,000 MG in SODIUM CHLORIDE 0.9% INJ 100 ML IV SCH ×6 (01:04→21:26)
[2017-02-22] MEDS: GENTAMICIN 80 MG PREMIX 100 ML IV SCH ×3 (04:20→20:14)
[2017-02-22 06:59] LABS: BICARBONATE 30.3 MEQ/L (21.0-32.0); POTASSIUM 3.4 MEQ/L (3.5-5.1)
[2017-02-22] MEDS: HIGH DOSE INSULIN NOVOLOG SUPPLEMENTAL SCALE SQ SCH ×4 (07:00→21:00)
--- NOTE | 2017-02-22 07:59 | HHI.PR ---
Subjective Remarks Patient feels great. Ambulating halls with help from nurse. Ambulatory in room with help from / daughter. Feels 100% better. Denies fevers or chills, chest pain, SOB, n/v/d/c. Normal BM this am. Urinating well. Objective Vital Signs Date Time Temp Pulse Resp B/P Pulse Ox O2 Delivery O2 Flow Rate FiO2 02/22/17 06:00 76 02/22/17 05:00 76 02/22/17 04:20 98.6 77 19 129/62 96 02/22/17 04:00 74 02/22/17 02:49 76 02/22/17 02:00 76 02/22/17 01:12 98.4 69 19 109/52 94 02/22/17 01:00 74 02/21/17 23:00 78 02/21/17 23:00 80 02/21/17 22:00 78 02/21/17 21:40 Nasal Cannula 2.00 02/21/17 21:00 80 02/21/17 20:02 98.4 74 19 116/54 95 02/21/17 20:00 74 02/21/17 19:00 75 02/21/17 18:34 74 02/21/17 18:20 113/52 02/21/17 17:00 74 02/21/17 16:00 68 02/21/17 15:40 98.1 69 19 95/48 96 02/21/17 15:00 70 02/21/17 14:52 109 02/21/17 13:00 72 02/21/17 12:00 74 02/21/17 11:45 98.4 72 19 98/53 98 02/21/17 11:00 69 02/21/17 10:00 70 02/21/17 08:02 97 2.00 02/21/17 08:00 72 I/O 02/21/17 02/21/17 02/21/17 02/22/17 02/22/17 02/22/17 07:00 15:00 23:00 07:00 15:00 23:00 Intake Total 480 ml 1240 ml 480 ml Output Total 1500 ml 1000 ml 2100 ml Balance -1020 ml 240 ml -1620 ml Intake Oral 480 ml 720 ml 480 ml IV Total 520 ml Output Urine Total 1500 ml 1000 ml 2100 ml # Bowel Movements 1 Result Diagram: 02/21/17 0534 02/22/17 0545 Imaging Last Impressions Chest X-Ray 02/20/17 0138 Signed Impressions: Service Date/Time: January 01:55 - CONCLUSION: Pulmonary edema with small right-sided effusion. Hank Navarro MD Objective Remarks GENERAL: This is a well-nourished, well-developed patient, in no apparent distress. Sitting up in chair at bedside, appears well. & daughter at bedside SKIN: No rashes, ecchymoses or lesions. Cool and dry. HEAD: Atraumatic. Normocephalic. EYES: No scleral icterus. No injection or drainage. ENT: Nose without drainage. Airway patent. NECK: Trachea midline. No JVD CARDIOVASCULAR: Regular rate and rhythm without murmurs, gallops, or rubs. RESPIRATORY: Comfortable and able to talk in complete sentences. ON room Air. No accessory respiratory muscle use. CTAB, No w/r/c. GASTROINTESTINAL: +BS. Abdomen soft, non-tender, nondistended. No guarding. No suprapubic tenderness. MUSCULOSKELETAL: Extremities without clubbing, cyanosis. Trace LE edema, markedly decreased compared to prior. No calf tenderness. NEUROLOGICAL: Awake and alert. Motor and sensory grossly within normal limits. Normal speech. A/P Problem List: (1) Hypertension ICD Code: I10 (2) Pulmonary edema ICD Code: J81.1 (3) Congestive heart failure (CHF) ICD Code: I50.9 (4) Bacteremia ICD Code: R78.81 (5) CAD (coronary artery disease) ICD Code: I25.10 (6) S/P AVR (aortic valve replacement) ICD Code: Z95.2 (7) Acute CHF ICD Code: I50.9 (8) Diabetes mellitus ICD Code: E11.9 (9) Dyslipidemia ICD Code: E78.5 (10) Chronic anemia ICD Code: D64.9 (11) Diastolic heart failure due to valvular disease ICD Code: I50.30 (12) CKD (chronic kidney disease), stage III ICD Code: N18.3 Assessment and Plan Presented with sudden onset of shakes and fever of 103 and also shortness of breath and his legs had become edematous. He also was noted to have a mild cough producing yellow sputum DDX: Acute pulmonary edema secondary underlying Diastolic heart failure versus flash pulmonary edema from hypertensive emergency Status post minimally invasive AVR replacement on 02/04/2017 with a tissue valve. Symptomatically much improved after good diuresis since admission. Precipitating factor unclear, may have element of diastolic dysfunction, may have had an atrial fibrillation recurrence. EF 55% by MARCELINO. AVR function and appearance unremarkable. Hypertension Diabetes Diastolic heart failure. EF 55%. Aortic valve stenosis status post aortic valve replacement February 04, 2017 CAD- minimal disease by catheter. 30% in proximal LAD. Chronic anemia Chronic kidney disease stage III Hyperlipidemia Carotid artery disease Plan: Cardiology following: Continue beta bharti; BP too low to continue ETHAN-I. Changed to oral furosemide. Remains in sinus rhythm. Continue apixaban. Mild CAD on recent preop cath. No angina symptoms. Cardiology "Will f/u as needed; OK for discharge from a cardiac standpoint" ID following: Discontinued vancomycin & Levaquin. Started Ampicillin & Gentamycin and monitor renal function. Plan is for long course of antibiotics. Repeat blood culture 02/21 pending Blood cultures 02/20: bacteremia with group D enterococcus. Unclear etiology. No definite evidence for vegetation or perivalvular abscess on MARCELINO. Would still consider prolonged course of antibiotics Now saturating 96% on 1.5 L NC this am. On room air on exam. Currently looks quite comfortable. Serial cardiac enzymes <0.02, 0.12, 0.08. EKGs negative Cardiothoracic surgeon consulted Chest x-ray with pulmonary edema, small R sided effusion Abx as above Dispo: D/c pending abx by ID, possibly Friday or Friday Problem Qualifiers (1) Congestive heart failure (CHF): Qualified Code: I50.9 - Acute congestive heart failure, unspecified congestive heart failure type (2) CAD (coronary artery disease): Qualified Code: I25.10 - Coronary artery disease involving [place] coronary artery of [place] heart without angina pectoris Roz Wolff MD Feb 22, 2017 07:59
[2017-02-22] MEDS ORDERED: POTASSIUM CHLORIDE 20 MEQ CONTROLLED RELEASE TAB PO ONE (08:15)
[2017-02-22] MEDS: POTASSIUM CHLORIDE 10 MEQ CAP PO SCH ×2 (08:58→21:26)
[2017-02-22] MEDS: ASPIRIN EC 81 MG TABEC PO SCH (08:59)
[2017-02-22] MEDS: MULTIVITAMINS/MINERALS THERAPEUTIC TAB PO SCH (08:59)
[2017-02-22] MEDS: APIXABAN 2.5 MG TABLET PO SCH ×2 (08:59→21:26)
[2017-02-22] MEDS: MAGNESIUM OXIDE 400 MG TAB PO SCH (08:59)
[2017-02-22] MEDS: FERROUS SULFATE 325 MG (65 MG ELEMENTAL IRON) TAB PO SCH ×2 (09:00→17:08)
[2017-02-22] MEDS: SODIUM CHLORIDE 0.9% FLUSH 10 ML FLUSH IV FLUSH SCH ×2 (09:00→21:27)
[2017-02-22] MEDS: DOCUSATE SODIUM 100 MG CAP PO SCH ×2 (09:00→21:26)
[2017-02-22] MEDS: FUROSEMIDE 40 MG/4 ML VIAL IV PUSH SCH ×2 (09:00→17:08)
[2017-02-22] MEDS: CARVEDILOL 3.125 MG TAB PO SCH ×2 (09:00→21:26)
[2017-02-22 11:56] LABS: AUTOMATED NEUTROPHIL # 3.1 TH/MM3 (1.8-7.7); BASOPHIL % 0.7 % (0.0-2.0); EOSINOPHIL # 0.1 TH/MM3 (0-0.4); EOSINOPHIL % 1.3 % (0.0-4.0); HEMATOCRIT 28.5 % (39.0-51.0); HEMO FLAGS DIFF FINAL; LYMPH % 12.2 % (9.0-44.0); LYMPHOCYTE # 0.5 TH/MM3 (1.0-4.8); MEAN CELL VOLUME 83.9 FL (80.0-100.0); MEAN CORPUSCULAR HGB CONC 33.3 % (32.0-36.0); MONO % 13.9 % (0.0-8.0); NEUT % 71.9 % (16.0-70.0); PLATELET COUNT 150 TH/MM3 (150-450); RED CELL DISTRIBUTION WIDTH 14.7 % (11.6-17.2); WHITE BLOOD COUNT 4.3 TH/MM3 (4.0-11.0)
[2017-02-22] MEDS: TAMSULOSIN HCL 0.4 MG CAP PO SCH (21:26)
[2017-02-22] MEDS: ATORVASTATIN 40 MG TAB PO SCH (21:26)
[2017-02-23] VITALS (26 sets, daily range): BP systolic 105–137; BP diastolic 51–66; PULSE 68–90; RESP 18–19; TEMP 97.6–98.6; O2SAT 92–99
[2017-02-23] MEDS: AMPICILLIN INJ 2,000 MG in SODIUM CHLORIDE 0.9% INJ 100 ML IV SCH ×6 (00:51→22:30)
[2017-02-23] MEDS: GENTAMICIN 80 MG PREMIX 100 ML IV SCH ×3 (04:00→21:13)
[2017-02-23] MEDS: HIGH DOSE INSULIN NOVOLOG SUPPLEMENTAL SCALE SQ SCH ×4 (05:46→21:00)
--- NOTE | 2017-02-23 07:20 | HHI.PR ---
Subjective Remarks Patient feels great. Ambulating well Denies fevers or chills, chest pain, SOB, n/v/d/c. D/W Nursing Objective Vital Signs Date Time Temp Pulse Resp B/P Pulse Ox O2 Delivery O2 Flow Rate FiO2 02/23/17 04:00 70 02/23/17 03:33 98.6 73 19 122/59 96 02/23/17 03:00 70 02/23/17 02:00 74 02/23/17 01:00 68 02/23/17 00:00 68 02/22/17 23:33 98.1 70 19 122/73 96 02/22/17 23:00 70 02/22/17 22:00 72 02/22/17 21:00 72 02/22/17 20:29 95 21 02/22/17 20:00 66 02/22/17 19:25 98.1 71 19 124/65 97 02/22/17 19:00 76 02/22/17 18:20 76 02/22/17 17:26 74 02/22/17 16:07 76 02/22/17 15:10 98.7 77 19 109/52 96 02/22/17 15:00 75 02/22/17 14:00 72 02/22/17 13:00 76 02/22/17 12:00 74 02/22/17 11:45 97.6 72 18 105/53 98 02/22/17 11:00 74 02/22/17 10:00 78 02/22/17 09:17 96 Nasal Cannula 1.50 02/22/17 09:00 88 02/22/17 08:00 74 02/22/17 07:30 98.4 77 17 125/63 95 I/O 02/22/17 02/22/17 02/22/17 02/23/17 02/23/17 02/23/17 07:00 15:00 23:00 07:00 15:00 23:00 Intake Total 480 ml 1300 ml 480 ml Output Total 2100 ml 1125 ml 750 ml Balance -1620 ml 175 ml -270 ml Intake Oral 480 ml 900 ml 480 ml IV Total 400 ml Output Urine Total 2100 ml 1125 ml 750 ml # Bowel Movements 2 Result Diagram: 02/22/17 1040 02/22/17 0545 Imaging Last Impressions Chest X-Ray 02/20/17 0138 Signed Impressions: Service Date/Time: January 01:55 - CONCLUSION: Pulmonary edema with small right-sided effusion. Hank Navarro MD Objective Remarks GENERAL: This is a well-nourished, well-developed patient, in no apparent distress. Sitting up in chair at bedside, appears well. SKIN: No rashes, ecchymoses or lesions. Cool and dry. HEAD: Atraumatic. Normocephalic. EYES: No scleral icterus. No injection or drainage. ENT: Nose without drainage. Airway patent. NECK: Trachea midline. No JVD CARDIOVASCULAR: Regular rate and rhythm without murmurs, gallops, or rubs. RESPIRATORY: Comfortable and able to talk in complete sentences. On room Air. No accessory respiratory muscle use. CTAB, No w/r/c. GASTROINTESTINAL: Abdomen soft, non-tender, nondistended. MUSCULOSKELETAL: Extremities without clubbing, cyanosis or edema. NEUROLOGICAL: Awake and alert. Motor and sensory grossly within normal limits. Normal speech. A/P Problem List: (1) Hypertension ICD Code: I10 (2) Pulmonary edema ICD Code: J81.1 (3) Congestive heart failure (CHF) ICD Code: I50.9 (4) Bacteremia ICD Code: R78.81 (5) CAD (coronary artery disease) ICD Code: I25.10 (6) S/P AVR (aortic valve replacement) ICD Code: Z95.2 (7) Acute CHF ICD Code: I50.9 (8) Diabetes mellitus ICD Code: E11.9 (9) Dyslipidemia ICD Code: E78.5 (10) Chronic anemia ICD Code: D64.9 (11) Diastolic heart failure due to valvular disease ICD Code: I50.30 (12) CKD (chronic kidney disease), stage III ICD Code: N18.3 Assessment and Plan A/P: Hypertension Diabetes Diastolic heart failure. EF 55%. Aortic valve stenosis status post aortic valve replacement February 04, 2017 CAD- minimal disease by catheter. 30% in proximal LAD. Chronic anemia Chronic kidney disease stage III Hyperlipidemia Carotid artery disease Plan: Cardiology following: EF 55% by MARCELINO. AVR function and appearance unremarkable. Continue beta bharti; BP too low to continue ETHAN-I. Changed to oral furosemide. Remains in sinus rhythm. Continue apixaban. Mild CAD on recent preop cath. No angina symptoms. Cardiology "Will f/u as needed; OK for discharge from a cardiac standpoint" ID following: Discontinued vancomycin & Levaquin. Started Ampicillin & Gentamycin and monitor renal function. Plan is for long course of antibiotics. Repeat blood culture 02/21 NGTD x1 day. Blood cultures 02/20: bacteremia with group D enterococcus. Unclear etiology. "No definite evidence for vegetation or perivalvular abscess on MARCELINO. Would still consider prolonged course of antibiotics" Now saturating 96% on Room air this am. Comfortable. Serial cardiac enzymes <0.02, 0.12, 0.08. EKGs negative Cardiothoracic surgeon consulted Chest x-ray with pulmonary edema, small R sided effusion Abx as above Dispo: D/c pending abx by ID, possibly Friday or Friday Problem Qualifiers (1) Congestive heart failure (CHF): Qualified Code: I50.9 - Acute congestive heart failure, unspecified congestive heart failure type (2) CAD (coronary artery disease): Qualified Code: I25.10 - Coronary artery disease involving [place] coronary artery of [place] heart without angina pectoris Roz Wolff MD Feb 23, 2017 07:20 Cardiothoracic surgeon consulted Chest x-ray with pulmonary edema, small R sided effusion Abx as above Dispo: D/c pending abx by ID, possibly Friday or Friday Problem Qualifiers (1) Congestive heart failure (CHF): Qualified Code: I50.9 - Acute congestive heart failure, unspecified congestive heart failure type (2) CAD (coronary artery disease): Qualified Code: I25.10 - Coronary artery disease involving [place] coronary artery of [place] heart without angina pectoris Roz Wolff MD Feb 23, 2017 07:20
[2017-02-23 07:21] LABS: HEMATOCRIT 25.6 % (39.0-51.0); MEAN CELL VOLUME 83.1 FL (80.0-100.0); MEAN CORPUSCULAR HEMOGLOBIN 28.2 PG (27.0-34.0); MEAN CORPUSCULAR HGB CONC 33.9 % (32.0-36.0); PLATELET COUNT 146 TH/MM3 (150-450); RED BLOOD COUNT 3.09 MIL/MM3 (4.50-5.90); RED CELL DISTRIBUTION WIDTH 14.9 % (11.6-17.2); WHITE BLOOD COUNT 3.6 TH/MM3 (4.0-11.0)
[2017-02-23 07:32] LABS: BICARBONATE 31.5 MEQ/L (21.0-32.0); POTASSIUM 3.4 MEQ/L (3.5-5.1)
[2017-02-23 07:35] LABS: HEMO FLAGS AUTO DIFF
[2017-02-23] MEDS ORDERED: POTASSIUM CHLORIDE 20 MEQ CONTROLLED RELEASE TAB PO ONE (07:45)
[2017-02-23] MEDS: FUROSEMIDE 40 MG/4 ML VIAL IV PUSH SCH (08:13)
[2017-02-23] MEDS: SODIUM CHLORIDE 0.9% FLUSH 10 ML FLUSH IV FLUSH SCH ×2 (08:14→21:14)
[2017-02-23] MEDS: FERROUS SULFATE 325 MG (65 MG ELEMENTAL IRON) TAB PO SCH ×2 (08:16→17:16)
[2017-02-23] MEDS: CARVEDILOL 3.125 MG TAB PO SCH ×2 (08:16→21:14)
[2017-02-23] MEDS: DOCUSATE SODIUM 100 MG CAP PO SCH ×2 (08:17→21:14)
[2017-02-23] MEDS: MULTIVITAMINS/MINERALS THERAPEUTIC TAB PO SCH (08:17)
[2017-02-23] MEDS: MAGNESIUM OXIDE 400 MG TAB PO SCH (08:17)
[2017-02-23] MEDS: ASPIRIN EC 81 MG TABEC PO SCH (08:17)
[2017-02-23] MEDS: APIXABAN 2.5 MG TABLET PO SCH ×2 (08:17→21:13)
[2017-02-23] MEDS: POTASSIUM CHLORIDE 10 MEQ CAP PO SCH ×2 (08:17→21:14)
[2017-02-23 11:24] LABS: BANDS 2 % (0-6); EOSINOPHILS 2 % (0-4); NEUTROPHIL # MANUAL DIFF 2.4 TH/MM3 (1.8-7.7); PLATELET ESTIMATE SMEAR NORMAL (NORMAL); PLATELET MORPHOLOGY NORMAL (NORMAL); POLYS (SEG NEUTROPHILS) 65 % (16-70); SCAN/DIFF FINAL DIFF MANUAL; WBC DIFF SAMPLE 100
[2017-02-23] MEDS ORDERED: PHARMACY ORDERED LAB ONE (11:45)
[2017-02-23] MEDS ORDERED: FUROSEMIDE 20 MG TAB PO ONE (18:00)
[2017-02-23] MEDS: TAMSULOSIN HCL 0.4 MG CAP PO SCH (21:13)
[2017-02-23] MEDS: ATORVASTATIN 40 MG TAB PO SCH (21:14)
[2017-02-24] VITALS (24 sets, daily range): BP systolic 104–152; BP diastolic 53–73; PULSE 68–82; RESP 16–18; TEMP 97.8–98.6; O2SAT 98–100
[2017-02-24] MEDS: AMPICILLIN INJ 2,000 MG in SODIUM CHLORIDE 0.9% INJ 100 ML IV SCH ×4 (01:00→12:30)
[2017-02-24] MEDS: GENTAMICIN 80 MG PREMIX 100 ML IV SCH ×2 (04:00→11:03)
[2017-02-24] MEDS: HIGH DOSE INSULIN NOVOLOG SUPPLEMENTAL SCALE SQ SCH ×4 (06:15→21:00)
--- NOTE | 2017-02-24 08:34 | HHI.PR ---
Subjective Remarks Patient reports he is feeling great. Anxious to go home. He denies shortness of breath or chest pain. No fevers or chills. Eating well. Objective Vitals Vital Signs Date Time Temp Pulse Resp B/P Pulse Ox O2 Delivery O2 Flow Rate FiO2 02/24/17 08:00 82 02/24/17 07:00 97.8 82 18 124/62 98 02/24/17 07:00 82 02/24/17 06:00 70 02/24/17 05:00 72 02/24/17 04:00 98.6 77 18 148/69 98 02/24/17 04:00 71 02/24/17 03:00 70 02/24/17 02:00 70 02/24/17 01:00 70 02/24/17 00:00 98.6 73 18 129/60 98 02/24/17 00:00 71 02/23/17 23:00 72 02/23/17 22:00 72 02/23/17 21:00 80 02/23/17 20:00 98.0 80 18 131/63 98 02/23/17 20:00 89 02/23/17 19:00 74 02/23/17 18:13 78 02/23/17 17:00 74 02/23/17 16:31 74 02/23/17 15:00 74 02/23/17 15:00 97.6 80 18 137/66 92 02/23/17 14:00 76 02/23/17 13:32 79 02/23/17 12:27 73 02/23/17 11:10 97.8 75 18 105/51 99 02/23/17 11:00 74 02/23/17 10:45 74 02/23/17 10:00 88 02/23/17 09:00 88 I/O 02/23/17 02/23/17 02/23/17 02/24/17 02/24/17 02/24/17 07:00 15:00 23:00 07:00 15:00 23:00 Intake Total 480 ml 720 ml 480 ml Output Total 750 ml 550 ml 650 ml Balance -270 ml 170 ml -170 ml Intake Oral 480 ml 720 ml 480 ml Output Urine Total 750 ml 550 ml 650 ml # Voids 3 Result Diagram: 02/23/17 0445 02/23/17 0445 Imaging Last Impressions Chest X-Ray 02/20/17 0138 Signed Impressions: Service Date/Time: January 01:55 - CONCLUSION: Pulmonary edema with small right-sided effusion. Hank Navarro MD Objective Remarks GENERAL: Elderly male in no apparent distress. CARDIOVASCULAR: Normal rate and regular. 2/6 [place] murmur best heard at the right upper sternal border. RESPIRATORY: Good respiratory efforts. Breath sounds equal and clear to auscultation bilaterally. GASTROINTESTINAL: Abdomen soft, non-tender, non-distended. Normal active bowel sounds MUSCULOSKELETAL: Extremities without cyanosis, or edema. NEURO: Alert & Oriented x4 to person, place, time, situation. Moves all ext x4 PSYCH: Appropriate mood and affect. A/P Problem List: (1) S/P AVR (aortic valve replacement) ICD Code: Z95.2 Status: Acute Assessment and Plan 81-year-old male status post aortic valve replacement on 02/04/17 admitted with congestive heart failure and pulmonary edema. Patient found to be bacteremic with group D enterococcus. Uncertain etiology. Congestive heart failure: Probable diastolic dysfunction. May have had atrial fibrillation recurrence per travograph operator assessment. EF 55% by MARCELINO. AVR function and appearance unremarkable per cardiology. - Continue beta bharti, blood pressure too low to tolerate ETHAN inhibitor at this time. - Patient was transitioned to oral Lasix. Bacteremia with group D enterococcus: No evidence of vegetation on MARCELINO. Infectious planning on prolonged course of IV antibiotics given recent AVR. - Currently on ampicillin and gentamicin - Further plans per infectious disease. ? if there are home IV infusion for the patient. - Repeat blood cultures negative 2 days. Paroxysmal atrial fibrillation: - Currently in sinus rhythm. Continue apixaban. Status post aortic valve replacement: - Cardiothoracic surgery following. AVR appearance and function unremarkable and MARCEILNO. Chronic kidney disease stage III: - Continue to monitor. Avoid nephrotoxins. GI prophylaxis:Stool softener PRN constipation. DVT PPx: Patient on Eliquis. Discharge Planning Per primary. Repeat cultures no growth to date. Antibiotics course per infectious disease. Zoraida Grant MD February 24, 2017 08:34 EF 55% by MARCELINO. AVR function and appearance unremarkable. Continue beta bharti; BP too low to continue ETHAN-I. Changed to oral furosemide. Remains in sinus rhythm. Continue apixaban. Mild CAD on recent preop cath. No angina symptoms. Cardiology "Will f/u as needed; OK for discharge from a cardiac standpoint" ID following: Discontinued vancomycin & Levaquin. Started Ampicillin & Gentamycin and monitor renal function. Plan is for long course of antibiotics. Repeat blood culture 02/21 NGTD x1 day. Blood cultures 02/20: bacteremia with group D enterococcus. Unclear etiology. "No definite evidence for vegetation or perivalvular abscess on MARCELINO. Would still consider prolonged course of antibiotics" Now saturating 96% on Room air this am. Comfortable. Serial cardiac enzymes <0.02, 0.12, 0.08. EKGs negative Cardiothoracic surgeon consulted Chest x-ray with pulmonary edema, small R sided effusion Abx as above Dispo: D/c pending abx by Zoraida Monsivais MD February 24, 2017 08:34
[2017-02-24] MEDS: DOCUSATE SODIUM 100 MG CAP PO SCH ×2 (09:00→21:00)
[2017-02-24] MEDS: SODIUM CHLORIDE 0.9% FLUSH 10 ML FLUSH IV FLUSH SCH ×2 (09:00→21:12)
[2017-02-24] MEDS: ASPIRIN EC 81 MG TABEC PO SCH (09:01)
[2017-02-24] MEDS: FERROUS SULFATE 325 MG (65 MG ELEMENTAL IRON) TAB PO SCH ×2 (09:01→17:16)
[2017-02-24] MEDS: CARVEDILOL 3.125 MG TAB PO SCH ×2 (09:01→21:11)
[2017-02-24] MEDS: POTASSIUM CHLORIDE 10 MEQ CAP PO SCH ×2 (09:01→21:10)
[2017-02-24] MEDS: FUROSEMIDE 40 MG TAB PO SCH (09:01)
[2017-02-24] MEDS: MAGNESIUM OXIDE 400 MG TAB PO SCH (09:02)
[2017-02-24] MEDS: APIXABAN 2.5 MG TABLET PO SCH ×2 (09:02→21:11)
[2017-02-24] MEDS: MULTIVITAMINS/MINERALS THERAPEUTIC TAB PO SCH (09:02)
[2017-02-24 09:35] LABS: HEMATOCRIT 29.8 % (39.0-51.0); MEAN CELL VOLUME 84.5 FL (80.0-100.0); MEAN CORPUSCULAR HEMOGLOBIN 26.8 PG (27.0-34.0); MEAN CORPUSCULAR HGB CONC 31.8 % (32.0-36.0); PLATELET COUNT 155 TH/MM3 (150-450); RED BLOOD COUNT 3.53 MIL/MM3 (4.50-5.90); RED CELL DISTRIBUTION WIDTH 15.1 % (11.6-17.2); REVIEW FLAG FINAL; WHITE BLOOD COUNT 3.8 TH/MM3 (4.0-11.0)
[2017-02-24 10:03] LABS: BICARBONATE 32.1 MEQ/L (21.0-32.0); POTASSIUM 3.9 MEQ/L (3.5-5.1)
--- NOTE | 2017-02-24 11:16 | PD.CAR.PN ---
CVT Progress Note Subjective/Hospital Course: 81/ male , HX severe worsening symptoms of dyspnea , with minimal levels of exertion. Underwent cardiac cath by Dr Khoury minimal CAD 30% in prox LAD, Echo showed EF 53% PMH: , chronic anemia ( on ferrous sulfate, hx of Bone Marrow BX ( neg Heme workup) Carotid artery disease , CHF, CKD stage 3, DM, HTN, HLP, min CAD Surgery: 02/04 Minimally invasive AVR with a 23 Intuity tissue valve, MARCELINO, Percutaneous femoral cannulation, Perclose arterial closure, Ultrasound guidance for access, Internal rib fixation. Afib postop discharge home 02/08 per ED note : readmitted via ED early this am , dyspnea x one day , unable to breathe at all at home, He reports that came on all of a sudden today, + fever at home. Reports of mild cough but productive of yellowish sputum. bilateral lower extremity edema worsening in the past few days. Called 911 Upon EMS arrival, patient was quite dyspneic with peripheral edema for which they had given him Lasix 80 mg IV with 4 mg morphine. He was brought into ER on [facility]. He also had documented fever of 103 upon arrival, initial blood pressure was 200 over 100s. According to the family members at the bedside, patient did have a chest x-ray and an echocardiogram just yesterday at Dr. Dietrich's office. They were told that everything was normal. WBC unremarkable, CXR small right pleural effusion, + pulm edema BNP >600, Trop 0.12 ( recent surgery) lactic acid 1.2, BC pending / possible early pneumonia 02/21 pt less dyspneic, no further chills, no further fevers BC group D enterococcus 01/28 cultures/ ABX per ID MARCELINO noted: normal functioning bioprosthetic valve , Aortic valve: no perivalvular leak or abscess, no vegetation Mitral valve : no vegetation, Tricuspid valve : no vegetation , no pericardial effusion 02/24 doing well, on room air feels better, waiting Picc line placement and further plan per UD for dc with IV antibiotics Objective: Vital Signs Date Time Temp Pulse Resp B/P Pulse Ox O2 Delivery O2 Flow Rate FiO2 02/24/17 10:00 73 02/24/17 09:00 72 02/24/17 08:00 82 02/24/17 07:00 97.8 82 18 124/62 98 02/24/17 07:00 82 02/24/17 06:00 70 02/24/17 05:00 72 02/24/17 04:00 98.6 77 18 148/69 98 02/24/17 04:00 71 02/24/17 03:00 70 02/24/17 02:00 70 02/24/17 01:00 70 02/24/17 00:00 98.6 73 18 129/60 98 02/24/17 00:00 71 02/23/17 23:00 72 02/23/17 22:00 72 02/23/17 21:00 80 02/23/17 20:00 98.0 80 18 131/63 98 02/23/17 20:00 89 02/23/17 19:00 74 02/23/17 18:13 78 02/23/17 17:00 74 02/23/17 16:31 74 02/23/17 15:00 74 02/23/17 15:00 97.6 80 18 137/66 92 02/23/17 14:00 76 02/23/17 13:32 79 02/23/17 12:27 73 Labs: Laboratory Tests Test 02/24/17 08:52 White Blood Count 3.8 TH/MM3 (4.0-11.0) Red Blood Count 3.53 MIL/MM3 (4.50-5.90) Hemoglobin 9.5 GM/DL (13.0-17.0) Hematocrit 29.8 % (39.0-51.0) Mean Corpuscular Volume 84.5 FL (80.0-100.0) Mean Corpuscular Hemoglobin 26.8 PG (27.0-34.0) Mean Corpuscular Hemoglobin 31.8 % Concent (32.0-36.0) Red Cell Distribution Width 15.1 % (11.6-17.2) Platelet Count 155 TH/MM3 (150-450) Mean Platelet Volume 8.0 FL (7.0-11.0) Sodium Level 139 MEQ/L (136-145) Potassium Level 3.9 MEQ/L (3.5-5.1) Chloride Level 99 MEQ/L (98-107) Carbon Dioxide Level 32.1 MEQ/L (21.0-32.0) Anion Gap 8 MEQ/L (5-15) Blood Urea Nitrogen 23 MG/DL (7-18) Creatinine 1.46 MG/DL (0.60-1.30) Estimat Glomerular Filtration 46 ML/MIN (>89) Rate Random Glucose 204 MG/DL (74-106) Calcium Level 8.8 MG/DL (8.5-10.1) Result Diagram: 02/24/17 0852 02/24/17851 Telemetry: NSR (1) Congestive heart failure (CHF) Plan: Symptomatically much improved after good diuresis since admission. Precipitating factor unclear, may have element of diastolic dysfunction, may have had an atrial fibrillation recurrence. EF 55% by MARCELINO . AVR function and appearance unremarkable. REC continue beta bharti; BP's probably too low to continue ETHAN-I (2) Bacteremia Plan: No definite evidence for vegetation or perivalvular abscess on MARCELINO. will need prolonged course of antibiotics. (3) Paroxysmal atrial fibrillation Plan: Remains in sinus rhythm. Continue apixaban. (4) S/P AVR (aortic valve replacement) Plan: AVR appearance function normal on MARCELINO (5) CAD (coronary artery disease) Plan: Only mild CAD on recent preop cath. No angina symptoms. Problem Qualifiers (1) Congestive heart failure (CHF): Qualified Code: I50.9 - Acute congestive heart failure, unspecified congestive heart failure type (2) CAD (coronary artery disease): Qualified Code: I25.10 - Coronary artery disease involving [place] coronary artery of [place] heart without angina pectoris Mary Beth Mata February 24, 2017 11:16
[2017-02-24] MEDS ORDERED: POTASSIUM CHLORIDE 10 MEQ CONTROLLED RELEASE TAB PO ONE (11:30)
--- NOTE | 2017-02-24 14:14 | HHI.IDPN ---
Note Infectious Disease Note Patient feels well. No chills. No chest pain. Afebrile. Renal function worse. 02/21 - Blood culture no growth. 02/20 - Blood culture has Enterococcus faecalis. MARCELINO - no vegetations. Presented with sudden onset of shakes and fever and also shortness of breath and his legs had become edematous. He also was noted to have a mild cough producing yellow sputum. PAST MEDICAL HISTORY 1. Hypertension, 2. Diabetes mellitus 3. Chronic kidney disease stage III 4. Chronic anemia, 5. Hyperlipidemia, 6. Coronary artery disease, 7. 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 8. Right knee replacement ALLERGIES NO KNOWN DRUG ALLERGIES. ANTIBIOTICS: Ampicillin. SOCIAL HISTORY The patient is . No alcohol. No tobacco, no illicit drugs. FAMILY HISTORY Noncontributory. OBJECTIVE: Vital Signs Date Time Temp Pulse Resp B/P Pulse Ox O2 Delivery O2 Flow Rate FiO2 02/24/17 13:21 73 02/24/17 12:00 75 02/24/17 11:00 97.9 74 18 104/53 99 02/24/17 11:00 72 02/24/17 10:00 73 02/24/17 09:00 72 02/24/17 08:00 82 02/24/17 07:00 97.8 82 18 124/62 98 02/24/17 07:00 82 02/24/17 06:00 70 02/24/17 05:00 72 02/24/17 04:00 98.6 77 18 148/69 98 02/24/17 04:00 71 02/24/17 03:00 70 02/24/17 02:00 70 02/24/17 01:00 70 02/24/17 00:00 98.6 73 18 129/60 98 02/24/17 00:00 71 02/23/17 23:00 72 02/23/17 22:00 72 02/23/17 21:00 80 02/23/17 20:00 98.0 80 18 131/63 98 02/23/17 20:00 89 02/23/17 19:00 74 02/23/17 18:13 78 02/23/17 17:00 74 02/23/17 16:31 74 02/23/17 15:00 74 02/23/17 15:00 97.6 80 18 137/66 92 02/23/17 02/23/17 02/24/17 15:00 23:00 07:00 Intake Total 720 ml 480 ml Output Total 550 ml 650 ml Balance 170 ml -170 ml Intake Oral 720 ml 480 ml Output Urine Total 550 ml 650 ml # Voids 3 Laboratory Tests Test 02/23/17 02/24/17 04:45 08:52 White Blood Count 3.6 TH/MM3 3.8 TH/MM3 Red Blood Count 3.09 MIL/MM3 3.53 MIL/MM3 Hemoglobin 8.7 GM/DL 9.5 GM/DL Hematocrit 25.6 % 29.8 % Mean Corpuscular Volume 83.1 FL 84.5 FL Mean Corpuscular Hemoglobin 28.2 PG 26.8 PG Mean Corpuscular Hemoglobin 33.9 % 31.8 % Concent Red Cell Distribution Width 14.9 % 15.1 % Platelet Count 146 TH/MM3 155 TH/MM3 Mean Platelet Volume 8.1 FL 8.0 FL Neutrophils (%) (Auto) % Lymphocytes (%) (Auto) % Monocytes (%) (Auto) % Eosinophils (%) (Auto) % Basophils (%) (Auto) % Neutrophils # (Auto) TH/MM3 Lymphocytes # (Auto) TH/MM3 Monocytes # (Auto) TH/MM3 Eosinophils # (Auto) TH/MM3 Basophils # (Auto) TH/MM3 CBC Comment AUTO DIFF Differential Total Cells 100 Counted Neutrophils % (Manual) 65 % Band Neutrophils % 2 % Lymphocytes % 26 % Monocytes % 5 % Eosinophils % 2 % Neutrophils # (Manual) 2.4 TH/MM3 Differential Comment FINAL DIFF MANUAL Platelet Estimate NORMAL Platelet Morphology Comment NORMAL Laboratory Tests Test 02/23/17 02/24/17 04:45 08:52 Sodium Level 140 MEQ/L 139 MEQ/L Potassium Level 3.4 MEQ/L 3.9 MEQ/L Chloride Level 100 MEQ/L 99 MEQ/L Carbon Dioxide Level 31.5 MEQ/L 32.1 MEQ/L Anion Gap 9 MEQ/L 8 MEQ/L Blood Urea Nitrogen 27 MG/DL 23 MG/DL Creatinine 1.30 MG/DL 1.46 MG/DL Estimat Glomerular Filtration 53 ML/MIN 46 ML/MIN Rate Random Glucose 90 MG/DL 204 MG/DL Calcium Level 8.5 MG/DL 8.8 MG/DL Microbiology Date/Time Procedure Status Source Growth 02/21/17 19:51 Aerobic Blood Culture - Preliminary Resulted Blood Peripheral NO GROWTH IN 3 DAYS 02/21/17 19:51 Anaerobic Blood Culture - Preliminary Resulted Blood Peripheral NO GROWTH IN 3 DAYS 02/21/17 20:00 Aerobic Blood Culture - Preliminary Resulted Blood Peripheral NO GROWTH IN 3 DAYS 02/21/17 20:00 Anaerobic Blood Culture - Preliminary Resulted Blood Peripheral NO GROWTH IN 3 DAYS PHYSICAL EXAMINATION GENERAL: No acute distress. HEENT: No icterus. No conjunctival erythema. Oropharynx has no visible lesions. Moist mucosa. NECK: Supple without adenopathy. LUNGS: Clear. HEART: Decreased heart sounds without audible murmurs. ABDOMEN: Bowel sounds present, soft, nontender. EXTREMITIES: No CCE. No peripheral embolic phenomena. SKIN: No rash. NEUROLOGIC: Nonfocal. PSYCHIATRIC: The patient is calm and cooperative. IMPRESSION 1. Bacteremia with Enterococcus Faecalis. ? etiology. 2. Status post minimally invasive AVR replacement on 02/04/2017 with a tissue valve. 3. Fever secondary to infection. Improved. 4. Acute kidney disease. Aminoglycoside may have contributed. RECOMMENDATIONS 1. Change Ampicillin to Unasyn. 2. Stop Gentamycin. Avoid because of renal function deterioration. 3. Start Ceftriaxone synergy. 4. Monitor renal function. 5. PIC line tomorrow if renal function is better. Otherwise may have to place a Palomo for antibiotics outpatient if renal function is not improved. 6. Patient will need to follow up with ID outpatient Dr. Currie. on discharge. D/W and daughter. Deven Holland MD February 24, 2017 14:13
[2017-02-24] MEDS: cefTRIAXone INJ 2,000 MG in SODIUM CHLORIDE 0.9% INJ 100 ML IV SCH (15:50)
[2017-02-24] MEDS: AMPICILLIN-SULBACTAM INJ 3 GM in SODIUM CHLORIDE 0.9% INJ 100 ML IV SCH (20:00)
[2017-02-24] MEDS: TAMSULOSIN HCL 0.4 MG CAP PO SCH (21:11)
[2017-02-24] MEDS: ATORVASTATIN 40 MG TAB PO SCH (21:11)
--- NOTE | 2017-02-24 21:42 | PD ---
HPI Chief Complaint: Respiratory Distress Time Seen by Provider: 01:38 Travel History International Travel<30 days: No Contact w/Intl Traveler<30days: No Traveled to known affect area: No History of Present Illness HPI The patient is an 81-year-old male that complains of shortness of breath, fever and cough productive of yellow sputum that began today. He also states that he has bilateral lower extremity edema for the past few days. The cough had a few light streaks of blood in the sputum. The patient called 911 and was brought here to [place] emergency department. He states the patient had a chest x- ray and echocardiogram and a Dr Dietrich's office and was told everything was normal. The patient does have a history of aortic valve replacement for aortic stenosis on February 04. He was discharged on February 08. He does have a history of hypertension, diabetes, chronic anemia, hyperlipidemia, coronary artery disease and aortic valve stenosis with status post aortic valve replacement with bovine valve. He does not smoke. He does not drink alcohol. Apparently, he was given 40 of Lasix in the field and several breathing treatments. PFSH Past Medical History Arthritis: Yes (IN LT LEG) Asthma: No Autoimmune Disease: No Blood Disorders: No Heart Rhythm Problems: Yes (AFTER AORTIC VALVE REPLACEMENT AFIB) Cancer: No Cardiovascular Problems: Yes High Cholesterol: No Chemotherapy: No Chest Pain: No Congestive Heart Failure: Yes COPD: Yes Coronary Artery Disease: Yes Diabetes: Yes Patient Takes Glucophage: No Diminished Hearing: No Endocrine: No Genitourinary: No Hypertension: Yes Immune Disorder: No Implanted Vascular Access Dvce: Yes Neurologic: No Psychiatric: No Reproductive: No Respiratory: No Radiation Therapy: No Sickle Cell Disease: No Sleep Apnea: No Thyroid Disease: No Tetanus Vaccination: Unknown Influenza Vaccination: Yes Past Surgical History Abdominal Surgery: No Body Medical Devices: recent right knee replacement Cardiac Surgery: Yes (AORTIC STENT 02/04/17) Ear Surgery: No Endocrine Surgery: No Eye Surgery: No Genitourinary Surgery: No Gynecologic Surgery: No Joint Replacement: Yes Oral Surgery: No Thoracic Surgery: No Tonsillectomy: Yes Other Surgery: Yes (right total knee replacement with manipulation after) Social History Alcohol Use: No Tobacco Use: No Substance Use: No Allergies-Medications (Allergen,Severity, Reaction): Coded Allergies: No Known Allergies (Unverified , 02/20/17) Reported Meds & Prescriptions Reported Meds & Active Scripts Active Prednisone 50 Mg Tab 50 Mg PO BID Eliquis (Apixaban) 2.5 Mg Tab 2.5 Mg PO BID Dok (Docusate Sodium) 100 Mg Cap 100 Mg PO BID Amiodarone (Amiodarone HCl) 200 Mg Tab 200 Mg PO Q12HR Reported Vitamin D3 (Cholecalciferol) 1,000 Unit Tab 1,000 Units PO DAILY Vitamin B-12 (Cyanocobalamin) 1,000 Mcg Tab 1,000 Mcg PO DAILY Metformin (Metformin HCl) 500 Mg Tab 500 Mg PO BIDPC With meals Magnesium Oxide 400 Mg Tab 400 Mg PO DAILY Iron (Ferrous Sulfate) 325 Mg Tab 325 Mg PO BIDPC Take after a meal. Enalapril (Enalapril Maleate) 10 Mg Tab 10 Mg PO DAILY Multivitamin Men (Multiple Vitamins W/ Minerals) 1 Tab Tab 1 Tab PO DAILY Carvedilol 3.125 Mg Tab 3.125 Mg PO BID Tamsulosin (Tamsulosin HCl) 0.4 Mg Cap 0.4 Mg PO HS Atorvastatin (Atorvastatin Calcium) 40 Mg Tab 40 Mg PO HS Aspirin 81 Mg Tabdr 81 Mg PO DAILY Amoxicillin 500 Mg Cap 2 Gm PO DIRECTED FOR DENTAL PROCEDURES Review of Systems Except as stated in HPI: all other systems reviewed are Neg Physical Exam Narrative GENERAL: The patient is alert, oriented 3 in moderate respiratory distress. His vital signs show temperature 103.1 with pulse 102 and respiratory rate of 25 and blood pressure 203/100 with oximetry 99%. His chest x-ray shows pulmonary edema with right sided pulmonary effusion. SKIN: Focused skin assessment warm/dry. HEAD: Atraumatic. Normocephalic. EYES: Pupils equal and round. No scleral icterus. No injection or drainage. ENT: No nasal bleeding or discharge. Mucous membranes pink and moist. NECK: Trachea midline. No JVD. CARDIOVASCULAR: Regular rate and rhythm. No murmur appreciated. RESPIRATORY: No accessory muscle use. Clear to auscultation. Breath sounds equal bilaterally. GASTROINTESTINAL: Abdomen soft, non-tender, nondistended. Hepatic and splenic margins not palpable. MUSCULOSKELETAL: No obvious deformities. No clubbing. No cyanosis. No edema. NEUROLOGICAL: Awake and alert. No obvious cranial nerve deficits. Motor grossly within normal limits. Normal speech. PSYCHIATRIC: Appropriate mood and affect; insight and judgment normal. Data Data Orders Complete Blood Count With Diff (02/20/17 01:38) Comprehensive Metabolic Panel (02/20/17 01:38) B-Type Natriuretic Peptide (02/20/17 01:38) Magnesium (Mg) (02/20/17 01:38) Troponin I (02/20/17 01:38) Urinalysis - C+S If Indicated (02/20/17 01:38) Iv Access Insert/Monitor (02/20/17 01:38) Ecg Monitoring (02/20/17 01:38) Oximetry (02/20/17 01:38) Oxygen Administration (02/20/17 01:38) Chest, Single Ap (02/20/17 01:38) Sodium Chloride 0.9% Flush (Ns Flush) (02/20/17 01:45) Lactic Acid Sepsis Protocol (02/20/17 01:42) Blood Culture (02/20/17 01:42) Acetaminophen (Tylenol) (02/20/17 02:00) Ketorolac Inj (Toradol Inj) (02/20/17 02:15) Arterial Blood Gas (Abg) (02/20/17 ) Resp Bipap / Cpap Non Invas Vt (02/20/17 ) Admit Order (Ed Use Only) (02/20/17 02:39) Labs Laboratory Tests Test 02/20/17 02/20/17 02/20/17 01:40 01:45 02:15 Urine Color LIGHT-YELLOW Urine Turbidity CLEAR Urine pH 6.5 Urine Specific Whitney 1.006 Urine Protein NEG mg/dL Urine Glucose (UA) NEG mg/dL Urine Ketones NEG mg/dL Urine Occult Blood MOD Urine Nitrite NEG Urine Bilirubin NEG Urine Urobilinogen LESS THAN 2.0 MG/DL Urine Leukocyte Esterase NEG Urine RBC 98 /hpf Urine WBC LESS THAN 1 /hpf Urine Mucus FEW /lpf Microscopic Urinalysis Comment CULT NOT INDICATED White Blood Count 9.7 TH/MM3 Red Blood Count 3.96 MIL/MM3 Hemoglobin 10.9 GM/DL Hematocrit 33.8 % Mean Corpuscular Volume 85.3 FL Mean Corpuscular Hemoglobin 27.5 PG Mean Corpuscular Hemoglobin 32.3 % Concent Red Cell Distribution Width 15.3 % Platelet Count 187 TH/MM3 Mean Platelet Volume 8.2 FL Neutrophils (%) (Auto) 90.4 % Lymphocytes (%) (Auto) 3.4 % Monocytes (%) (Auto) 5.7 % Eosinophils (%) (Auto) 0.3 % Basophils (%) (Auto) 0.2 % Neutrophils # (Auto) 8.8 TH/MM3 Lymphocytes # (Auto) 0.3 TH/MM3 Monocytes # (Auto) 0.6 TH/MM3 Eosinophils # (Auto) 0.0 TH/MM3 Basophils # (Auto) 0.0 TH/MM3 CBC Comment DIFF FINAL Differential Comment Sodium Level 138 MEQ/L Potassium Level 3.9 MEQ/L Chloride Level 103 MEQ/L Carbon Dioxide Level 25.5 MEQ/L Anion Gap 10 MEQ/L Blood Urea Nitrogen 17 MG/DL Creatinine 1.03 MG/DL Estimat Glomerular Filtration 69 ML/MIN Rate Random Glucose 180 MG/DL Lactic Acid Level 1.2 mmol/L Calcium Level 8.9 MG/DL Magnesium Level 1.6 MG/DL Total Bilirubin 0.8 MG/DL Aspartate Amino Transf 31 U/L (AST/SGOT) Alanine Aminotransferase 51 U/L (ALT/SGPT) Alkaline Phosphatase 90 U/L Troponin I LESS THAN 0.02 NG/ML B-Type Natriuretic Peptide 661 PG/ML Total Protein 7.2 GM/DL Albumin 3.8 GM/DL Blood Gas Puncture Site LT BRACHIAL Blood Gas Patient Temperature 98.6 Blood Gas HCO3 24 mmol/L Blood Gas Base Excess 0.4 mmol/L Blood Gas Oxygen Saturation 99 % Arterial Blood pH 7.49 Arterial Blood Partial 32 mmHg Pressure CO2 Arterial Blood Partial 413 mmHG Pressure O2 Arterial Blood Oxygen Content 14.8 Vol % Arterial Blood 1.5 % Carboxyhemoglobin Arterial Blood Methemoglobin 0.4 % Blood Gas Hemoglobin 10.0 G/DL Oxygen Delivery Device NPPV Blood Gas Ventilator Setting IPAP16/[id number] Blood Gas Inspired Oxygen 100 % [facility] Medical Decision Making Medical Screen Exam Complete: Yes Emergency Medical Condition: Yes Medical Record Reviewed: Yes Interpretation(s) The CBC shows a white count of 9700 with hemoglobin 10.9 and hematocrit of 34. 90% are neutrophils. The blood gases on 100% O2 show pH 7.49, CO2 32, PO2 413 with O2 sat 99%. The complete metabolic profile shows a GFR of 69, glucose 180 but is otherwise unremarkable. The BNP is 661. The initial cardiac enzymes are normal. The urine shows moderate occult blood, 98 red cells but is otherwise normal and culture is not indicated. Differential Diagnosis Congestive heart failure with pulmonary edema, acute myocardial infarction, non- STEMI myocardial infarction, electrolyte disorder, pneumonia, bronchiolitis Narrative Course The patient has acute pulmonary edema. Because of this patient's fever he may have a hidden pneumonia. At this time we cannot demonstrate any heart damage but later enzymes may show this. Diagnosis Primary Impression: Pulmonary edema Admitting Information Admitting Physician Requests: Observation Scripts Prednisone 50 Mg Tab50 Mg PO BID #12 TAB Ref 0 Prov:Raymon Fong MD 02/20/17 Raymon Fong MD February 24, 2017 21:42
[2017-02-25] VITALS (24 sets, daily range): BP systolic 92–141; BP diastolic 51–74; PULSE 67–94; RESP 15–18; TEMP 97.7–98.4; O2SAT 97–100
[2017-02-25] MEDS: AMPICILLIN-SULBACTAM INJ 3 GM in SODIUM CHLORIDE 0.9% INJ 100 ML IV SCH ×4 (02:00→20:51)
[2017-02-25] MEDS: HIGH DOSE INSULIN NOVOLOG SUPPLEMENTAL SCALE SQ SCH ×4 (06:34→21:00)
[2017-02-25] MEDS: POTASSIUM CHLORIDE 10 MEQ CAP PO SCH ×2 (08:07→20:51)
[2017-02-25] MEDS: CARVEDILOL 3.125 MG TAB PO SCH ×2 (08:07→20:51)
[2017-02-25] MEDS: MAGNESIUM OXIDE 400 MG TAB PO SCH (08:07)
[2017-02-25] MEDS: APIXABAN 2.5 MG TABLET PO SCH ×2 (08:07→20:51)
[2017-02-25] MEDS: FUROSEMIDE 40 MG TAB PO SCH (08:08)
[2017-02-25] MEDS: DOCUSATE SODIUM 100 MG CAP PO SCH ×2 (08:08→20:51)
[2017-02-25] MEDS: FERROUS SULFATE 325 MG (65 MG ELEMENTAL IRON) TAB PO SCH ×2 (08:08→17:24)
[2017-02-25] MEDS: MULTIVITAMINS/MINERALS THERAPEUTIC TAB PO SCH (08:09)
[2017-02-25] MEDS: SODIUM CHLORIDE 0.9% FLUSH 10 ML FLUSH IV FLUSH SCH ×2 (08:09→20:51)
[2017-02-25] MEDS: ASPIRIN EC 81 MG TABEC PO SCH (08:09)
[2017-02-25 09:19] LABS: BICARBONATE 30.5 MEQ/L (21.0-32.0)
--- NOTE | 2017-02-25 10:57 | PD.CAR.PN ---
CVT Progress Note Subjective/Hospital Course: 81/ male , HX severe worsening symptoms of dyspnea , with minimal levels of exertion. Underwent cardiac cath by Dr Khoury minimal CAD 30% in prox LAD, Echo showed EF 53% PMH: , chronic anemia ( on ferrous sulfate, hx of Bone Marrow BX ( neg Heme workup) Carotid artery disease , CHF, CKD stage 3, DM, HTN, HLP, min CAD Surgery: 02/04 Minimally invasive AVR with a 23 Intuity tissue valve, MARCELINO, Percutaneous femoral cannulation, Perclose arterial closure, Ultrasound guidance for access, Internal rib fixation. Afib postop discharge home 02/08 per ED note : readmitted via ED early this am , dyspnea x one day , unable to breathe at all at home, He reports that came on all of a sudden today, + fever at home. Reports of mild cough but productive of yellowish sputum. bilateral lower extremity edema worsening in the past few days. Called 911 Upon EMS arrival, patient was quite dyspneic with peripheral edema for which they had given him Lasix 80 mg IV with 4 mg morphine. He was brought into ER on C Pap. He also had documented fever of 103 upon arrival, initial blood pressure was 200 over 100s. According to the family members at the bedside, patient did have a chest x-ray and an echocardiogram just yesterday at Dr. Dietrich's office. They were told that everything was normal. WBC unremarkable, CXR small right pleural effusion, + pulm edema BNP >600, Trop 0.12 ( recent surgery) lactic acid 1.2, BC pending / possible early pneumonia 02/21 pt less dyspneic, no further chills, no further fevers BC group D enterococcus 01/28 cultures/ ABX per ID MARCELINO noted: normal functioning bioprosthetic valve , Aortic valve: no perivalvular leak or abscess, no vegetation Mitral valve : no vegetation, Tricuspid valve : no vegetation , no pericardial effusion 02/24 doing well, on room air feels better, waiting Picc line placement and further plan per UD for dc with IV antibiotics 02/25 waiting on final decision for PICC line placement and antibiotic therapy from ID when completed, will dc home with f/u with Dr Amy Jones ID Objective: GENERAL: SKIN: Warm and dry. incision intact and well approximated to right chest HEAD: Normocephalic. EYES: No scleral icterus. No injection or drainage. NECK: Supple, trachea midline. No JVD or lymphadenopathy. CARDIOVASCULAR: Regular rate and rhythm without murmurs, gallops, or rubs. RESPIRATORY: Breath sounds equal bilaterally. No accessory muscle use. GASTROINTESTINAL: Abdomen soft, non-tender, nondistended. MUSCULOSKELETAL: No cyanosis, or edema. BACK: Nontender without obvious deformity. No CVA tenderness. Vital Signs Date Time Temp Pulse Resp B/P Pulse Ox O2 Delivery O2 Flow Rate FiO2 02/25/17 10:00 72 02/25/17 09:00 77 02/25/17 08:00 74 02/25/17 07:00 97.7 81 16 138/74 97 02/25/17 07:00 76 02/25/17 04:00 71 02/25/17 04:00 97.9 75 16 131/63 100 02/25/17 03:00 70 02/25/17 02:00 84 02/25/17 01:00 70 02/25/17 00:00 68 02/25/17 00:00 98.0 67 16 141/68 98 02/24/17 23:00 68 02/24/17 22:00 70 02/24/17 21:00 74 02/24/17 20:00 97.9 78 16 152/73 98 02/24/17 20:00 80 02/24/17 19:00 78 02/24/17 18:00 77 02/24/17 17:00 79 02/24/17 16:00 78 02/24/17 15:00 97.8 72 16 108/55 100 02/24/17 15:00 73 02/24/17 14:02 70 02/24/17 13:21 73 02/24/17 12:00 75 02/24/17 11:00 97.9 74 18 104/53 99 02/24/17 11:00 72 Labs: Laboratory Tests Test 02/25/17 07:51 Sodium Level 143 MEQ/L (136-145) Potassium Level 4.0 MEQ/L (3.5-5.1) Chloride Level 104 MEQ/L (98-107) Carbon Dioxide Level 30.5 MEQ/L (21.0-32.0) Anion Gap 9 MEQ/L (5-15) Blood Urea Nitrogen 20 MG/DL (7-18) Creatinine 1.42 MG/DL (0.60-1.30) Estimat Glomerular Filtration 48 ML/MIN (>89) Rate Random Glucose 104 MG/DL (74-106) Calcium Level 8.9 MG/DL (8.5-10.1) Result Diagram: 02/24/17 0852 02/25/17 0751 (1) Congestive heart failure (CHF) Plan: Symptomatically much improved after good diuresis since admission . Precipitating factor unclear, may have element of diastolic dysfunction, may have had an atrial fibrillation recurrence. EF 55% by MARCELINO . AVR function and appearance unremarkable. REC continue beta bharti; BP's improved , add low dose ann (2) Bacteremia Plan: No definite evidence for vegetation or perivalvular abscess on MARCELINO. will need prolonged course of antibiotics. (3) Paroxysmal atrial fibrillation Plan: Remains in sinus rhythm. Continue apixaban. (4) S/P AVR (aortic valve replacement) Plan: AVR appearance function normal on MARCELINO (5) CAD (coronary artery disease) Plan: Only mild CAD on recent preop cath. No angina symptoms. Problem Qualifiers (1) Congestive heart failure (CHF): Qualified Code: I50.9 - Acute congestive heart failure, unspecified congestive heart failure type (2) CAD (coronary artery disease): Qualified Code: I25.10 - Coronary artery disease involving quechan coronary artery of quechan heart without angina pectoris Mary Beth Mata February 25, 2017 10:57
--- NOTE | 2017-02-25 12:20 | HHI.IDPN ---
Note Infectious Disease Note Patient feels well. No complaints. Denies chills. No chest pain. No SOB. Has good urine output. Afebrile. 02/21 - Blood culture no growth. 02/20 - Blood culture has Enterococcus faecalis. MARCELINO - no vegetations. Presented with sudden onset of shakes and fever and also shortness of breath and his legs had become edematous. He also was noted to have a mild cough producing yellow sputum. PAST MEDICAL HISTORY 1. Hypertension, 2. Diabetes mellitus 3. Chronic kidney disease stage III 4. Chronic anemia, 5. Hyperlipidemia, 6. Coronary artery disease, 7. 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 8. Right knee replacement ALLERGIES NO KNOWN DRUG ALLERGIES. ANTIBIOTICS: Ampicillin. SOCIAL HISTORY The patient is . No alcohol. No tobacco, no illicit drugs. FAMILY HISTORY Noncontributory. OBJECTIVE: Vital Signs Date Time Temp Pulse Resp B/P Pulse Ox O2 Delivery O2 Flow Rate FiO2 02/25/17 11:00 86 02/25/17 10:00 72 02/25/17 09:00 77 02/25/17 08:00 74 02/25/17 07:00 97.7 81 16 138/74 97 02/25/17 07:00 76 02/25/17 04:00 71 02/25/17 04:00 97.9 75 16 131/63 100 02/25/17 03:00 70 02/25/17 02:00 84 02/25/17 01:00 70 02/25/17 00:00 68 02/25/17 00:00 98.0 67 16 141/68 98 02/24/17 23:00 68 02/24/17 22:00 70 02/24/17 21:00 74 02/24/17 20:00 97.9 78 16 152/73 98 02/24/17 20:00 80 02/24/17 19:00 78 02/24/17 18:00 77 02/24/17 17:00 79 02/24/17 16:00 78 02/24/17 15:00 97.8 72 16 108/55 100 02/24/17 15:00 73 02/24/17 14:02 70 02/24/17 13:21 73 02/24/17 02/24/17 02/25/17 15:00 23:00 07:00 Intake Total 1200 ml 240 ml Output Total 1050 ml 3500 ml Balance 150 ml -3260 ml Intake Oral 1200 ml 240 ml Output Urine Total 1050 ml 3500 ml # Bowel Movements 1 Laboratory Tests Test 02/24/17 08:52 White Blood Count 3.8 TH/MM3 Red Blood Count 3.53 MIL/MM3 Hemoglobin 9.5 GM/DL Hematocrit 29.8 % Mean Corpuscular Volume 84.5 FL Mean Corpuscular Hemoglobin 26.8 PG Mean Corpuscular Hemoglobin 31.8 % Concent Red Cell Distribution Width 15.1 % Platelet Count 155 TH/MM3 Mean Platelet Volume 8.0 FL Laboratory Tests Test 02/24/17 02/25/17 08:52 07:51 Sodium Level 139 MEQ/L 143 MEQ/L Potassium Level 3.9 MEQ/L 4.0 MEQ/L Chloride Level 99 MEQ/L 104 MEQ/L Carbon Dioxide Level 32.1 MEQ/L 30.5 MEQ/L Anion Gap 8 MEQ/L 9 MEQ/L Blood Urea Nitrogen 23 MG/DL 20 MG/DL Creatinine 1.46 MG/DL 1.42 MG/DL Estimat Glomerular Filtration 46 ML/MIN 48 ML/MIN Rate Random Glucose 204 MG/DL 104 MG/DL Calcium Level 8.8 MG/DL 8.9 MG/DL PHYSICAL EXAMINATION GENERAL: No acute distress. HEENT: No icterus. No conjunctival erythema. Oropharynx has no visible lesions. Moist mucosa. NECK: Supple without adenopathy. No JVD. LUNGS: Clear decreased breath sounds. HEART: Decreased heart sounds without audible murmurs. ABDOMEN: Bowel sounds present, soft, nontender. EXTREMITIES: No CCE. No peripheral embolic phenomena. SKIN: No rash. NEUROLOGIC: Nonfocal. PSYCHIATRIC: Pleasant, calm and cooperative. IMPRESSION 1. Bacteremia with Enterococcus Faecalis. ? etiology. 2. Status post minimally invasive AVR replacement on 02/04/2017 with a tissue valve. 3. Fever secondary to infection. Improved. 4. Acute kidney disease. Aminoglycoside may have contributed. Gentamycin discontinued. RECOMMENDATIONS 1. Continue Unasyn. 2. Continue Ceftriaxone synergy. 3. Monitor renal function. 4. PIC line once cleared by renal fitness sales consultant. Otherwise may have to place a Palomo for antibiotics outpatient 5. Follow up with ID outpatient Dr. Currie. on discharge. D/W patient, and daughter. Discussed with case management about arranging home IV antibiotics. Dontfraid,Deven F MD February 25, 2017 12:20
--- NOTE | 2017-02-25 12:32 | HHI.FF ---
Infusion Therapy Location of Infusion Therapy: Home [facility] IV Infusion Order Patient Information Patient Weight 76.8 kg Diagnosis: (1) Bacteremia Coded Allergies: No Known Allergies (Unverified , 02/20/17) Administer Medication Unasyn 3 grams IV Q 6 Hours Stop Treatment: Apr 03, 2017 Administer Medication Ceftriaxone 2 grams IV q 24 hours Stop Treatment: Apr 03, 2017 Additional Information Venous access: PICC Line Additional Instructions [x] Peripheral flush and dressing changes per protocol [x] Implanted port and central line leader: * Implanted port: 10 ml Normal Saline followed by 5 ml Heparin 100 units/ml Heparin flush after each use and monthly to maintain. [] May leave port accessed during therapy. [] May leave peripheral site accessed for duration of therapy. [x] If patient has SOB or respiratory distress, check oxygen saturation. If less than 90% or clinical signs of respiratory distress, administer oxygen at 2 L/min. via nasal cannula and notify physician. [x] Anaphylaxis/Reaction orders: * Stop infusion. * Keep IV line open with saline flush. * Notify physician. * Monitor vital signs every 15 minutes until symptoms resolve. * Check Oxygen saturation; Oxygen at 2 L/min. via nasal cannula if less than 90% or clinical signs of respiratory distress. * Administer diphenhydramine (Benadryl) 25 mg IV STAT, (unless patient has received as pre-med). May repeat once, if necessary. * Solu-Cortef 250 mg IVP over 30-60 seconds, use 100 mg vials for each dissolution. * Epinephrine (1mg/1 ml) 0.3 mg subcutaneously or IVP now with any signs of respiratory distress. * Check with physician for new additional pre-med orders if patient is re- challenged or re-treated. [x] May remove PICC line when treatment complete, after confirming with Physician. [x] If the patient is admitted to the hospital, the ED, or transferred via EVAC , complete transfer form including medication reconciliation order sheet. Laboratory Tests Weekly Labs: BMP, CBC w/diff Additional Information BMP Q 3 days while on IV antibiotics. Follow up with DR Amy Kush in 1 week. Deven Holland MD February 25, 2017 12:32
--- NOTE | 2017-02-25 13:54 | HHI.PR ---
Subjective Remarks Patient reports that he is feeling okay. He denies shortness of breath or chest pain. Eager to go home. Objective Vitals Vital Signs Date Time Temp Pulse Resp B/P Pulse Ox O2 Delivery O2 Flow Rate FiO2 02/25/17 12:00 77 02/25/17 11:00 97.8 78 16 92/51 99 02/25/17 11:00 86 02/25/17 10:00 72 02/25/17 09:00 77 02/25/17 08:00 74 02/25/17 07:00 97.7 81 16 138/74 97 02/25/17 07:00 76 02/25/17 04:00 71 02/25/17 04:00 97.9 75 16 131/63 100 02/25/17 03:00 70 02/25/17 02:00 84 02/25/17 01:00 70 02/25/17 00:00 68 02/25/17 00:00 98.0 67 16 141/68 98 02/24/17 23:00 68 02/24/17 22:00 70 02/24/17 21:00 74 02/24/17 20:00 97.9 78 16 152/73 98 02/24/17 20:00 80 02/24/17 19:00 78 02/24/17 18:00 77 02/24/17 17:00 79 02/24/17 16:00 78 02/24/17 15:00 97.8 72 16 108/55 100 02/24/17 15:00 73 02/24/17 14:02 70 I/O 02/24/17 02/24/17 02/24/17 02/25/17 02/25/17 02/25/17 07:00 15:00 23:00 07:00 15:00 23:00 Intake Total 480 ml 1200 ml 240 ml Output Total 650 ml 1050 ml 3500 ml Balance -170 ml 150 ml -3260 ml Intake Oral 480 ml 1200 ml 240 ml Output Urine Total 650 ml 1050 ml 3500 ml # Bowel Movements 1 Result Diagram: 02/24/17 0852 02/25/17 0751 Objective Remarks GENERAL: Elderly male in no apparent distress. CARDIOVASCULAR: Normal rate and regular. 2/6 GARFIELD murmur best heard at the right upper sternal border. RESPIRATORY: Good respiratory efforts. Breath sounds equal and clear to auscultation bilaterally. GASTROINTESTINAL: Abdomen soft, non-tender, non-distended. Normal active bowel sounds MUSCULOSKELETAL: Extremities without cyanosis, or edema. NEURO: Alert & Oriented x4 to person, place, time, situation. Moves all ext x4 PSYCH: Appropriate mood and affect. A/P Problem List: (1) S/P AVR (aortic valve replacement) ICD Code: Z95.2 Status: Acute Assessment and Plan 81-year-old male status post aortic valve replacement on 02/04/17 admitted with congestive heart failure and pulmonary edema. Patient found to be bacteremic with group D enterococcus. Uncertain etiology. Congestive heart failure: Probable diastolic dysfunction. May have had atrial fibrillation recurrence per aerial lineman assessment. EF 55% by MARCELINO. AVR function and appearance unremarkable per cardiology. - Continue beta bharti, blood pressure too low to tolerate ETHAN inhibitor at this time. - Patient was transitioned to oral Lasix and is doing well. Bacteremia with group D enterococcus: No evidence of vegetation on MARCELINO. Infectious planning on prolonged course of IV antibiotics given recent AVR. - Currently on ampicillin and gentamicin - Repeat blood cultures so far negative. - Infectious disease planning for home IV infusion therapy. PICC line has been ordered. Paroxysmal atrial fibrillation: - Currently in sinus rhythm. Continue apixaban. Status post aortic valve replacement: - Cardiothoracic surgery following. AVR appearance and function unremarkable and MARCELINO. Chronic kidney disease stage III: Stable today. Nephrology consulted for assistance and clearance for PICC line placement. - Continue to monitor. Avoid nephrotoxins. GI prophylaxis:Stool softener PRN constipation. DVT PPx: Patient on Eliquis. Discharge Planning Per primary. Hospitalist clear for discharge once antibiotics arrangements are made. Zoraida Grant MD February 25, 2017 13:54
[2017-02-25] MEDS: cefTRIAXone INJ 2,000 MG in SODIUM CHLORIDE 0.9% INJ 100 ML IV SCH (16:00)
--- NOTE | 2017-02-25 19:47 | PD.CONS ---
HPI Service Nephrology Consult Requested By Dr. Duckworth Reason for Consult Acute renal insufficiency Primary Care Physician Jose De Jesus Glass Do, MD History of Present Illness Patient is a 81-year-old white male with history of aortic stenosis status post AVR [address] Keller who was readmitted and has enterococcus faecalis infection which was treated during the course that his creatinine is 1.4 and I have been consulted, his baseline creatinine was around 0.9 due to infection he had dehydration, he gives a history of benign prostate enlargement but he has been passing good amount of urine Review of Systems Constitutional: COMPLAINS OF: Fatigue Past Family Social History Allergies: Coded Allergies: No Known Allergies (Unverified , 02/20/17) Past Medical History Aortic stenosis status post surgery 02/04/17 Hypertension Diabetes Benign prostatic enlargement Anemia Congestive heart failure Atrial fibrillation Past Surgical History Aortic valve replacement Knee surgery Reported Medications Reported Meds & Active Scripts Active Prednisone 50 Mg Tab 50 Mg PO BID Eliquis (Apixaban) 2.5 Mg Tab 2.5 Mg PO BID Dok (Docusate Sodium) 100 Mg Cap 100 Mg PO BID Amiodarone (Amiodarone HCl) 200 Mg Tab 200 Mg PO Q12HR Reported Vitamin D3 (Cholecalciferol) 1,000 Unit Tab 1,000 Units PO DAILY Vitamin B-12 (Cyanocobalamin) 1,000 Mcg Tab 1,000 Mcg PO DAILY Metformin (Metformin HCl) 500 Mg Tab 500 Mg PO BIDPC With meals Magnesium Oxide 400 Mg Tab 400 Mg PO DAILY Iron (Ferrous Sulfate) 325 Mg Tab 325 Mg PO BIDPC Take after a meal. Enalapril (Enalapril Maleate) 10 Mg Tab 10 Mg PO DAILY Multivitamin Men (Multiple Vitamins W/ Minerals) 1 Tab Tab 1 Tab PO DAILY Carvedilol 3.125 Mg Tab 3.125 Mg PO BID Tamsulosin (Tamsulosin HCl) 0.4 Mg Cap 0.4 Mg PO HS Atorvastatin (Atorvastatin Calcium) 40 Mg Tab 40 Mg PO HS Aspirin 81 Mg Tabdr 81 Mg PO DAILY Amoxicillin 500 Mg Cap 2 Gm PO DIRECTED FOR DENTAL PROCEDURES Active Ordered Medications Current Medications Medications (Trade) Dose Ordered Sig/Geoff Route Start Time Stop Time Status Last Admin (NS Flush) 2 ml UNSCH PRN IV FLUSH 02/20/17 02:45 (NS Flush) 2 ml BID IV FLUSH 02/20/17 09:00 02/25/17 08:09 (Narcan Inj) 0.4 mg UNSCH PRN IV 02/20/17 02:45 (Eliquis) 2.5 mg BID PO 02/20/17 09:00 02/25/17 08:07 (Ecotrin Ec) 81 mg DAILY PO 02/20/17 09:00 02/25/17 08:09 (Lipitor) 40 mg HS PO 02/20/17 21:00 02/24/17 21:11 (Coreg) 3.125 mg BID PO 02/20/17 09:00 02/25/17 08:07 (Mag-Ox) 400 mg DAILY PO 02/20/17 09:00 02/25/17 08:07 (Flomax) 0.4 mg HS PO 02/20/17 21:00 02/24/17 21:11 (Colace) 100 mg BID PO 02/20/17 09:00 02/23/17 21:14 (Ferrous Sulfate) 325 mg BIDPC PO 02/20/17 09:00 02/25/17 17:24 (Theragran M Tab) 1 tab DAILY PO 02/20/17 09:00 02/25/17 08:09 (D50w (Vial) Inj) 25 ml UNSCH PRN IV PUSH 02/20/17 19:45 (Glucagon Inj) 1 mg UNSCH PRN OTHER 02/20/17 19:45 (KCl) 10 meq BID PO 02/21/17 21:00 02/25/17 08:07 Furosemide 40 mg 40 mg DAILY PO 02/24/17 09:00 02/25/17 08:08 Ampicillin Sodium/ Sulbactam Sodium 3 gm/Sodium Chloride 100 ml @ 200 mls/hr Q6H IV 02/24/17 20:00 02/25/17 14:44 (Rocephin Inj/NS Inj) 100 ml @ 200 mls/hr Q24H IV 02/24/17 15:00 02/25/17 16:00 Family History Noncontributory Social History Denies smoking or alcohol use Physical Exam Vital Signs Vital Signs Date Time Temp Pulse Resp B/P Pulse Ox O2 Delivery O2 Flow Rate FiO2 02/25/17 18:05 77 02/25/17 17:00 80 02/25/17 16:00 79 02/25/17 15:00 78 02/25/17 15:00 97.9 79 18 112/54 97 02/25/17 14:00 82 02/25/17 13:00 77 02/25/17 12:00 77 02/25/17 11:00 97.8 78 16 92/51 99 02/25/17 11:00 86 02/25/17 10:00 72 02/25/17 09:00 77 02/25/17 08:00 74 02/25/17 07:00 97.7 81 16 138/74 97 02/25/17 07:00 76 02/25/17 04:00 71 02/25/17 04:00 97.9 75 16 131/63 100 02/25/17 03:00 70 02/25/17 02:00 84 02/25/17 01:00 70 02/25/17 00:00 68 02/25/17 00:00 98.0 67 16 141/68 98 02/24/17 23:00 68 02/24/17 22:00 70 02/24/17 21:00 74 02/24/17 20:00 97.9 78 16 152/73 98 02/24/17 20:00 80 Physical Exam GENERAL: Well-nourished, well-developed patient. SKIN: Warm and dry. HEAD: Normocephalic. EYES: No scleral icterus. No injection or drainage. NECK: Supple, trachea midline. No JVD or lymphadenopathy. CARDIOVASCULAR: Regular rate and rhythm without murmurs, gallops, or rubs. Right chest incision RESPIRATORY: Breath sounds equal bilaterally. No accessory muscle use. GASTROINTESTINAL: Abdomen soft, non-tender, nondistended. EXTREMITIES: No cyanosis, or edema. NEUROLOGICAL: Awake, alert, and oriented x 3. Non-focal. Laboratory Laboratory Tests Test 02/25/17 07:51 Sodium Level 143 Potassium Level 4.0 Chloride Level 104 Carbon Dioxide Level 30.5 Anion Gap 9 Blood Urea Nitrogen 20 Creatinine 1.42 Estimat Glomerular Filtration 48 Rate Random Glucose 104 Calcium Level 8.9 Date/Time Procedure Status Source Growth 02/21/17 20:00 Aerobic Blood Culture - Preliminary Resulted Blood Peripheral NO GROWTH IN 4 DAYS 02/21/17 20:00 Anaerobic Blood Culture - Preliminary Resulted Blood Peripheral NO GROWTH IN 4 DAYS Result Diagram: 02/24/17 0852 02/25/17 0751 Imaging Last Impressions Chest X-Ray 02/20/17 0138 Signed Impressions: Service Date/Time: January 01:55 - CONCLUSION: Pulmonary edema with small right-sided effusion. Hank Navarro MD Assessment and Plan Problem List: (1) Acute renal failure Plan: Patient has underlying sepsis which can lead to renal dysfunction, keep him well-hydrated I will start him on normal saline and his okay with nephrology to place a PICC line At this point his baseline creatinine was 0.9 few weeks ago and it appears that renal insufficiency developed due to underlying sepsis I will hold Lasix (2) S/P AVR (aortic valve replacement) Plan: Continue to observe (3) Aortic stenosis Plan: Recent surgery (4) Diabetes mellitus Plan: Continue to monitor Problem Qualifiers (1) Acute renal failure: Qualified Code: N17.9 - Acute renal failure, unspecified acute renal failure type Mone Bass MD February 25, 2017 19:47
[2017-02-25] MEDS: TAMSULOSIN HCL 0.4 MG CAP PO SCH (20:51)
[2017-02-25] MEDS: SODIUM CHLOR 0.9% 1000 ML INJ 1,000 ML IV SCH (20:51)
[2017-02-25] MEDS: ATORVASTATIN 40 MG TAB PO SCH (20:51)
[2017-02-26] VITALS (25 sets, daily range): BP systolic 92–139; BP diastolic 44–70; PULSE 64–92; RESP 16–18; TEMP 97.3–98.2; O2SAT 97–99
[2017-02-26] MEDS: AMPICILLIN-SULBACTAM INJ 3 GM in SODIUM CHLORIDE 0.9% INJ 100 ML IV SCH ×4 (02:17→20:04)
[2017-02-26] MEDS: HIGH DOSE INSULIN NOVOLOG SUPPLEMENTAL SCALE SQ SCH ×4 (05:56→21:07)
[2017-02-26 06:57] LABS: BICARBONATE 27.3 MEQ/L (21.0-32.0)
--- NOTE | 2017-02-26 08:32 | HHI.PR ---
Subjective Remarks patient with no complains, doing very well, good po, no nausea or vomiting, voiding well up and ambulating Objective Vitals Vital Signs Date Time Temp Pulse Resp B/P Pulse Ox O2 Delivery O2 Flow Rate FiO2 02/26/17 07:00 92 02/26/17 07:00 97.4 82 16 118/60 99 02/26/17 05:00 76 02/26/17 04:00 80 02/26/17 03:15 98.2 82 16 139/70 98 02/26/17 03:00 79 02/26/17 02:00 76 02/26/17 01:00 80 02/26/17 00:00 78 02/25/17 23:30 98.4 72 15 134/65 98 02/25/17 23:00 82 02/25/17 22:00 84 02/25/17 21:00 88 02/25/17 20:00 92 02/25/17 19:15 98.4 92 15 130/60 97 02/25/17 19:00 94 02/25/17 18:05 77 02/25/17 17:00 80 02/25/17 16:00 79 02/25/17 15:00 78 02/25/17 15:00 97.9 79 18 112/54 97 02/25/17 14:00 82 02/25/17 13:00 77 02/25/17 12:00 77 02/25/17 11:00 97.8 78 16 92/51 99 02/25/17 11:00 86 02/25/17 10:00 72 02/25/17 09:00 77 I/O 02/25/17 02/25/17 02/25/17 02/26/17 02/26/17 02/26/17 07:00 15:00 23:00 07:00 15:00 23:00 Intake Total 240 ml 820 ml 1280 ml Output Total 3500 ml 1200 ml 600 ml Balance -3260 ml -380 ml 680 ml Intake Oral 240 ml 620 ml 480 ml IV Total 200 ml 800 ml Output Urine Total 3500 ml 1200 ml 600 ml # Voids 2 Result Diagram: 02/24/17 0852 02/26/17 0531 Imaging Last Impressions Chest X-Ray 02/20/17 0138 Signed Impressions: Service Date/Time: January 01:55 - CONCLUSION: Pulmonary edema with small right-sided effusion. Hank Navarro MD Objective Remarks GENERAL: awake and alert, NAD SKIN: Warm and dry. HEAD: Normocephalic. EYES: No scleral icterus. No injection or drainage. NECK: Supple, trachea midline. No JVD or lymphadenopathy. CARDIOVASCULAR: Regular rate and rhythm without murmurs right chest wall- sterile strips in place, no erythema RESPIRATORY: Breath sounds equal bilaterally. No accessory muscle use., no rales , no wheezes GASTROINTESTINAL: Abdomen soft, non-tender, nondistended. MUSCULOSKELETAL: No cyanosis, or edema. , good epripheral pulses neuro exam- unremarkable Procedures AVR A/P Problem List: (1) S/P AVR (aortic valve replacement) ICD Code: Z95.2 Status: Acute Assessment and Plan 81-year-old male status post aortic valve replacement on 02/04/17 admitted with congestive heart failure and pulmonary edema. Patient found to be bacteremic with group D enterococcus. Uncertain etiology. Congestive heart failure: Probable diastolic dysfunction. May have had atrial fibrillation recurrence per pharmacy picking technician assessment.- now in SR EF 55% by MARCELINO. S/P MARCELINO AVR function and appearance unremarkable per cardiology. - Continue beta bharti, blood pressure too low to tolerate ETHAN inhibitor at this time. - Lasix on hold due to PANKAJ. KCL - decreased to once daily Bacteremia with group D enterococcus: No evidence of vegetation on MARCELINO. Infectious planning on prolonged course of IV antibiotics given recent AVR. - on Unasyn and Ceftrixone per ID till 04/03 - Repeat blood cultures so far negative. - Infectious disease planning for home IV infusion therapy. PICC line-Vacular access team consulted Paroxysmal atrial fibrillation:- in SR -on BB. Continue apixaban. KCL 10 meq po daily Acute kidney INjury -started on NS, non oliguric, creatinine trending down with hydration - ff BMP. Lasix on hold - Nephrology ff History of BPH- on Flomax. stable GI prophylaxis:Stool softener PRN constipation. DVT PPx: Patient on Eliquis. DC plannaing- PICC and OP IV antibiotic arrangement- CM assisting us Esperanza Verduzco MD February 26, 2017 08:32 Esperanza Verduzco MD February 26, 2017 08:32
[2017-02-26] MEDS: FERROUS SULFATE 325 MG (65 MG ELEMENTAL IRON) TAB PO SCH ×2 (08:44→17:58)
[2017-02-26] MEDS: POTASSIUM CHLORIDE 10 MEQ CAP PO SCH (08:44)
[2017-02-26] MEDS: CARVEDILOL 3.125 MG TAB PO SCH ×2 (08:44→21:07)
[2017-02-26] MEDS: APIXABAN 2.5 MG TABLET PO SCH ×2 (08:44→21:07)
[2017-02-26] MEDS: SODIUM CHLOR 0.9% 1000 ML INJ 1,000 ML IV SCH ×2 (08:44→16:00)
[2017-02-26] MEDS: MULTIVITAMINS/MINERALS THERAPEUTIC TAB PO SCH (08:44)
[2017-02-26] MEDS: MAGNESIUM OXIDE 400 MG TAB PO SCH (08:44)
[2017-02-26] MEDS: ASPIRIN EC 81 MG TABEC PO SCH (08:45)
[2017-02-26] MEDS: DOCUSATE SODIUM 100 MG CAP PO SCH ×2 (08:45→21:07)
[2017-02-26] MEDS: SODIUM CHLORIDE 0.9% FLUSH 10 ML FLUSH IV FLUSH SCH ×2 (08:45→20:04)
--- NOTE | 2017-02-26 11:34 | PD.CAR.PN ---
CVT Progress Note Subjective/Hospital Course: 81/ male , HX severe worsening symptoms of dyspnea , with minimal levels of exertion. Underwent cardiac cath by Dr Khoury minimal CAD 30% in prox LAD, Echo showed EF 53% PMH: , chronic anemia ( on ferrous sulfate, hx of Bone Marrow BX ( neg Heme workup) Carotid artery disease , CHF, CKD stage 3, DM, HTN, HLP, min CAD Surgery: 02/04 Minimally invasive AVR with a 23 Intuity tissue valve, MARCELINO, Percutaneous femoral cannulation, Perclose arterial closure, Ultrasound guidance for access, Internal rib fixation. Afib postop discharge home 02/08 per ED note : readmitted via ED early this am , dyspnea x one day , unable to breathe at all at home, He reports that came on all of a sudden today, + fever at home. Reports of mild cough but productive of yellowish sputum. bilateral lower extremity edema worsening in the past few days. Called 911 Upon EMS arrival, patient was quite dyspneic with peripheral edema for which they had given him Lasix 80 mg IV with 4 mg morphine. He was brought into ER on C Pap. He also had documented fever of 103 upon arrival, initial blood pressure was 200 over 100s. According to the family members at the bedside, patient did have a chest x-ray and an echocardiogram just yesterday at Dr. iDetrich's office. They were told that everything was normal. WBC unremarkable, CXR small right pleural effusion, + pulm edema BNP >600, Trop 0.12 ( recent surgery) lactic acid 1.2, BC pending / possible early pneumonia 02/21 pt less dyspneic, no further chills, no further fevers BC group D enterococcus 01/28 cultures/ ABX per ID MARCELINO noted: normal functioning bioprosthetic valve , Aortic valve: no perivalvular leak or abscess, no vegetation Mitral valve : no vegetation, Tricuspid valve : no vegetation , no pericardial effusion 02/24 doing well, on room air feels better, waiting Picc line placement and further plan per UD for dc with IV antibiotics 02/25 waiting on final decision for PICC line placement and antibiotic therapy from ID when completed, will dc home with f/u with Dr Amy oJnes ID 02/26/17 No complaints. Wants to go home Objective: Vital Signs Date Time Temp Pulse Resp B/P Pulse Ox O2 Delivery O2 Flow Rate FiO2 02/26/17 10:00 70 02/26/17 09:00 66 02/26/17 08:00 64 02/26/17 07:00 92 02/26/17 07:00 97.4 82 16 118/60 99 02/26/17 05:00 76 02/26/17 04:00 80 02/26/17 03:15 98.2 82 16 139/70 98 02/26/17 03:00 79 02/26/17 02:00 76 02/26/17 01:00 80 02/26/17 00:00 78 02/25/17 23:30 98.4 72 15 134/65 98 02/25/17 23:00 82 02/25/17 22:00 84 02/25/17 21:00 88 02/25/17 20:00 92 02/25/17 19:15 98.4 92 15 130/60 97 02/25/17 19:00 94 02/25/17 18:05 77 02/25/17 17:00 80 02/25/17 16:00 79 02/25/17 15:00 78 02/25/17 15:00 97.9 79 18 112/54 97 02/25/17 14:00 82 02/25/17 13:00 77 02/25/17 12:00 77 Labs: Laboratory Tests Test 02/26/17 05:31 Sodium Level 139 MEQ/L (136-145) Potassium Level 4.0 MEQ/L (3.5-5.1) Chloride Level 104 MEQ/L (98-107) Carbon Dioxide Level 27.3 MEQ/L (21.0-32.0) Anion Gap 8 MEQ/L (5-15) Blood Urea Nitrogen 21 MG/DL (7-18) Creatinine 1.22 MG/DL (0.60-1.30) Estimat Glomerular Filtration 57 ML/MIN (>89) Rate Random Glucose 106 MG/DL (74-106) Calcium Level 8.5 MG/DL (8.5-10.1) Result Diagram: 02/24/17 0852 02/26/17 0531 Cardiovascular: RRR Telemetry: NSR Pulmonary: CTA GI/: NABS Incision: dry and intact Plan: PICC line D/C with home abx per Dr. Holland (1) Congestive heart failure (CHF) Plan: Symptomatically much improved after good diuresis since admission . Precipitating factor unclear, may have element of diastolic dysfunction, may have had an atrial fibrillation recurrence. EF 55% by MARCELINO . AVR function and appearance unremarkable. REC continue beta bharti; BP's improved , add low dose ann (2) Bacteremia Plan: No definite evidence for vegetation or perivalvular abscess on MARCELINO. will need prolonged course of antibiotics. (3) Paroxysmal atrial fibrillation Plan: Remains in sinus rhythm. Continue apixaban. (4) S/P AVR (aortic valve replacement) Plan: AVR appearance function normal on MARCELINO (5) CAD (coronary artery disease) Plan: Only mild CAD on recent preop cath. No angina symptoms. Problem Qualifiers (1) Congestive heart failure (CHF): Qualified Code: I50.9 - Acute congestive heart failure, unspecified congestive heart failure type (2) CAD (coronary artery disease): Qualified Code: I25.10 - Coronary artery disease involving [place] coronary artery of [place] heart without angina pectoris Paola Samuel MD February 26, 2017 11:33
--- NOTE | 2017-02-26 14:32 | HHI.NPPN ---
Subjective History of Present Illness s/p AVR PANKAJ Objective Data Data 02/25/17 02/26/17 19:00 07:00 Intake Total 820 ml 1280 ml Output Total 1200 ml 600 ml Balance -380 ml 680 ml Intake Oral 620 ml 480 ml IV Total 200 ml 800 ml Output Urine Total 1200 ml 600 ml # Voids 2 Vital Signs Date Time Temp Pulse Resp B/P Pulse Ox O2 Delivery O2 Flow Rate FiO2 02/26/17 14:00 80 02/26/17 13:00 80 02/26/17 12:00 78 02/26/17 11:00 70 02/26/17 11:00 97.3 77 18 92/44 98 02/26/17 10:00 70 02/26/17 09:00 66 02/26/17 08:00 64 02/26/17 07:00 92 02/26/17 07:00 97.4 82 16 118/60 99 02/26/17 05:00 76 02/26/17 04:00 80 02/26/17 03:15 98.2 82 16 139/70 98 02/26/17 03:00 79 02/26/17 02:00 76 02/26/17 01:00 80 02/26/17 00:00 78 02/25/17 23:30 98.4 72 15 134/65 98 02/25/17 23:00 82 02/25/17 22:00 84 02/25/17 21:00 88 02/25/17 20:00 92 02/25/17 19:15 98.4 92 15 130/60 97 02/25/17 19:00 94 02/25/17 18:05 77 02/25/17 17:00 80 02/25/17 16:00 79 02/25/17 15:00 78 02/25/17 15:00 97.9 79 18 112/54 97 -: 02/24/17 0852 02/26/17 0531 Physical Exam General Appearance: Well Developed Neck Neck Exam: Neck Supple Pulmonary Resp Exam: Clear Bilaterally, Breath Sounds Equal Cardiology CV Exam: Regular, Normal Sinus Rhythm Gastrointestinal/Abdomen GI Exam: Soft, Non-Tender, Bowel Sounds Present Integumentary Skin Exam: Clear Extremeties Extremities Exam: No Edema Neurologic Neuro Exam: Alert, Awake Assessment/Plan Problem List: (1) Acute renal failure Plan: Patient has underlying sepsis with renal dysfunction, keep him well- hydrated on normal saline and his okay with nephrology to place a PICC line Cr declined 1.2 OK to dc from Nephrology point of view (2) S/P AVR (aortic valve replacement) Plan: Continue to observe (3) Aortic stenosis Plan: Recent surgery (4) Diabetes mellitus Plan: Continue to monitor Problem Qualifiers (1) Acute renal failure: Qualified Code: N17.9 - Acute renal failure, unspecified acute renal failure type Mone Bass MD February 26, 2017 14:31
[2017-02-26] MEDS: cefTRIAXone INJ 2,000 MG in SODIUM CHLORIDE 0.9% INJ 100 ML IV SCH (15:59)
[2017-02-26] MEDS ORDERED: SODIUM CHLORIDE 0.9% FLUSH 10 ML FLUSH IV FLUSH PRN (16:00)
--- NOTE | 2017-02-26 16:09 | HHI.IDPN ---
Note Infectious Disease Note Patient feels well. Expressed appreciation of care. No complaints. Just had PIC placed. Denies chills. Has good urine output. Renal function improved. Afebrile. 02/21 - Blood culture no growth. 02/20 - Blood culture has Enterococcus faecalis. MARCELINO - no vegetations. Presented with sudden onset of shakes and fever and also shortness of breath and his legs had become edematous. He also was noted to have a mild cough producing yellow sputum. PAST MEDICAL HISTORY 1. Hypertension, 2. Diabetes mellitus 3. Chronic kidney disease stage III 4. Chronic anemia, 5. Hyperlipidemia, 6. Coronary artery disease, 7. 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 8. Right knee replacement ALLERGIES NO KNOWN DRUG ALLERGIES. ANTIBIOTICS: Ampicillin. Ceftriaxone. SOCIAL HISTORY The patient is . No alcohol. No tobacco, no illicit drugs. FAMILY HISTORY Noncontributory. OBJECTIVE: Vital Signs Date Time Temp Pulse Resp B/P Pulse Ox O2 Delivery O2 Flow Rate FiO2 02/26/17 15:00 79 02/26/17 14:00 80 02/26/17 13:00 80 02/26/17 12:00 78 02/26/17 11:00 70 02/26/17 11:00 97.3 77 18 92/44 98 02/26/17 10:00 70 02/26/17 09:00 66 02/26/17 08:00 64 02/26/17 07:00 92 02/26/17 07:00 97.4 82 16 118/60 99 02/26/17 05:00 76 02/26/17 04:00 80 02/26/17 03:15 98.2 82 16 139/70 98 02/26/17 03:00 79 02/26/17 02:00 76 02/26/17 01:00 80 02/26/17 00:00 78 02/25/17 23:30 98.4 72 15 134/65 98 02/25/17 23:00 82 02/25/17 22:00 84 02/25/17 21:00 88 02/25/17 20:00 92 02/25/17 19:15 98.4 92 15 130/60 97 02/25/17 19:00 94 02/25/17 18:05 77 02/25/17 17:00 80 5/202/25/17 02/26/17 15:00 23:00 07:00 Intake Total 820 ml 1280 ml Output Total 1200 ml 600 ml Balance -380 ml 680 ml Intake Oral 620 ml 480 ml IV Total 200 ml 800 ml Output Urine Total 1200 ml 600 ml # Voids 2 Laboratory Tests Test 02/25/17 02/26/17 07:51 05:31 Sodium Level 143 MEQ/L 139 MEQ/L Potassium Level 4.0 MEQ/L 4.0 MEQ/L Chloride Level 104 MEQ/L 104 MEQ/L Carbon Dioxide Level 30.5 MEQ/L 27.3 MEQ/L Anion Gap 9 MEQ/L 8 MEQ/L Blood Urea Nitrogen 20 MG/DL 21 MG/DL Creatinine 1.42 MG/DL 1.22 MG/DL Estimat Glomerular Filtration 48 ML/MIN 57 ML/MIN Rate Random Glucose 104 MG/DL 106 MG/DL Calcium Level 8.9 MG/DL 8.5 MG/DL IMAGING: Chest X-Ray 02/20/17 0138 Signed Impressions: Service Date/Time: January 01:55 - CONCLUSION: Pulmonary edema with small right-sided effusion. Hank Navarro MD PHYSICAL EXAMINATION GENERAL: No acute distress. HEENT: No icterus. No conjunctival erythema. Oropharynx has no visible lesions. Moist mucosa. NECK: Supple without adenopathy. No JVD. LUNGS: Breath sounds clear. HEART: Nl S1S2, No murmurs. ABDOMEN: Bowel sounds present, soft, nontender. EXTREMITIES: No CCE. No peripheral embolic phenomena. SKIN: No rash. NEUROLOGIC: Nonfocal. PSYCHIATRIC: Pleasant, calm and cooperative. IMPRESSION 1. High grade Bacteremia with Enterococcus Faecalis. ? etiology. 2. Status post minimally invasive AVR replacement on 02/04/2017 with a tissue valve. 3. Fever secondary to infection. Improved. 4. Acute kidney disease. Aminoglycoside may have contributed. Gentamycin discontinued. RECOMMENDATIONS 1. Continue Unasyn IV outpatient x 6 weeks until April 03, 2017. 2. Continue Ceftriaxone synergy until April 03, 2017. 3. Monitor renal function. 4. Follow up with ID outpatient Dr. Currie. in 1 week after discharge. Discussed with case management about arranging home IV antibiotics. Deven Holland MD February 26, 2017 16:09
--- NOTE | 2017-02-26 17:02 | RADRPT ---
EXAM DATE/TIME: 02/26/2017 16:03 [facility] COMPARISON: CHEST SINGLE AP, February 20, 2017, 1:55. INDICATIONS : PICC line placement. MEDICAL HISTORY : Cardiovascular disease. Congestive heart failure. Hypertension SURGICAL HISTORY : Plate and screws right chest. ENCOUNTER: Subsequent ACUITY: 1 day PAIN SCORE: 0/10 LOCATION: Chest FINDINGS: The right-sided PICC line has its tip in the right atrium. There is no focal infiltrate or pulmonary vascular congestion. The heart is stable. Degenerative changes are noted throughout the thoracic sp ine. CONCLUSION: 1. Right-sided PICC line has its tip in the right atrium. 2. No pulmonary vascular congestion or focal infiltrate. 3. Degenerative changes throughout the thoracic spine. Matt Vargas MD on February 26, 2017 at 16:51 Board Certified Radiologist. This report was verified electronically.
[2017-02-26] MEDS: ATORVASTATIN 40 MG TAB PO SCH (21:07)
[2017-02-26] MEDS: TAMSULOSIN HCL 0.4 MG CAP PO SCH (21:07)
[2017-02-27] VITALS (17 sets, daily range): BP systolic 111–125; BP diastolic 51–58; PULSE 72–93; RESP 16–17; TEMP 97.4–98.3; O2SAT 96–100
[2017-02-27] MEDS: AMPICILLIN-SULBACTAM INJ 3 GM in SODIUM CHLORIDE 0.9% INJ 100 ML IV SCH ×3 (02:01→13:10)
[2017-02-27] MEDS: HIGH DOSE INSULIN NOVOLOG SUPPLEMENTAL SCALE SQ SCH ×2 (06:38→11:58)
[2017-02-27] MEDS: FERROUS SULFATE 325 MG (65 MG ELEMENTAL IRON) TAB PO SCH (08:01)
[2017-02-27] MEDS: APIXABAN 2.5 MG TABLET PO SCH (08:01)
[2017-02-27] MEDS: DOCUSATE SODIUM 100 MG CAP PO SCH (08:01)
[2017-02-27] MEDS: ASPIRIN EC 81 MG TABEC PO SCH (08:01)
[2017-02-27] MEDS: MULTIVITAMINS/MINERALS THERAPEUTIC TAB PO SCH (08:01)
[2017-02-27] MEDS: POTASSIUM CHLORIDE 10 MEQ CAP PO SCH (08:01)
[2017-02-27] MEDS: MAGNESIUM OXIDE 400 MG TAB PO SCH (08:01)
[2017-02-27] MEDS: SODIUM CHLORIDE 0.9% FLUSH 10 ML FLUSH IV FLUSH SCH (08:02)
[2017-02-27] MEDS: CARVEDILOL 3.125 MG TAB PO SCH (08:02)
[2017-02-27] MEDS ORDERED: SODIUM CHLORIDE 0.9% FLUSH 10 ML FLUSH IV FLUSH SCH (09:00)
--- NOTE | 2017-02-27 12:43 | HHI.PR ---
Subjective Remarks looking forward to be DC today no complains Objective Vitals Vital Signs Date Time Temp Pulse Resp B/P Pulse Ox O2 Delivery O2 Flow Rate FiO2 02/27/17 12:00 73 02/27/17 11:23 98.0 78 16 118/58 99 02/27/17 11:00 75 02/27/17 10:00 82 02/27/17 09:00 80 02/27/17 08:01 78 02/27/17 08:01 97.4 78 16 111/51 100 02/27/17 07:00 75 02/27/17 06:33 81 02/27/17 05:28 93 02/27/17 04:25 76 02/27/17 03:18 98.3 77 17 125/56 96 02/27/17 03:00 75 02/27/17 02:00 76 02/27/17 01:00 73 02/27/17 00:00 72 02/26/17 23:00 74 02/26/17 23:00 97.9 76 16 128/60 97 02/26/17 22:00 87 02/26/17 21:00 82 02/26/17 20:00 97.5 82 16 136/55 99 02/26/17 20:00 88 02/26/17 19:00 84 02/26/17 18:00 75 02/26/17 17:48 99 BiPAP 21 02/26/17 17:00 74 02/26/17 16:00 74 02/26/17 15:00 79 02/26/17 15:00 97.9 74 18 116/54 99 02/26/17 14:00 80 02/26/17 13:00 80 I/O 02/26/17 02/26/17 02/26/17 02/27/17 02/27/17 02/27/17 07:00 15:00 23:00 07:00 15:00 23:00 Intake Total 1280 ml 1320 ml 825 ml Output Total 600 ml 950 ml 1600 ml Balance 680 ml 370 ml -775 ml Intake Oral 480 ml 720 ml 720 ml IV Total 800 ml 600 ml 105 ml Output Urine Total 600 ml 950 ml 1600 ml # Voids 2 1 # Bowel Movements 1 1 Result Diagram: 02/24/17 0852 02/26/17 0531 Imaging Last Impressions Chest X-Ray 02/26/17 0000 Signed Impressions: Service Date/Time: Sunday, February 26, 2017 16:03 - CONCLUSION: 1. Right-sided PICC line has its tip in the right atrium. 2. No pulmonary vascular congestion or focal infiltrate. 3. Degenerative changes throughout the thoracic spine. Matt Vargas MD Objective Remarks GENERAL: awake and alert, NAD SKIN: Warm and dry. HEAD: Normocephalic. EYES: No scleral icterus. No injection or drainage. NECK: Supple, trachea midline. No JVD or lymphadenopathy. CARDIOVASCULAR: Regular rate and rhythm without murmurs right chest wall- sterile strips in place, no erythema RESPIRATORY: Breath sounds equal bilaterally. No accessory muscle use., no rales , no wheezes GASTROINTESTINAL: Abdomen soft, non-tender, nondistended. MUSCULOSKELETAL: No cyanosis, or edema. , good epripheral pulses neuro exam- unremarkable Procedures AVR A/P Problem List: (1) S/P AVR (aortic valve replacement) ICD Code: Z95.2 Status: Acute Assessment and Plan 81-year-old male status post aortic valve replacement on 02/04/17 admitted with congestive heart failure and pulmonary edema. Patient found to be bacteremic with group D enterococcus. Uncertain etiology. Congestive heart failure: Probable diastolic dysfunction. May have had atrial fibrillation recurrence per scalp specialist assessment.- now in SR EF 55% by MARCELINO. S/P MARCELINO AVR function and appearance unremarkable per cardiology. - Continue beta bharti, blood pressure too low to tolerate ETHAN inhibitor at this time. - Lasix on hold due to PANKAJ. KCL - decreased to once daily Bacteremia with group D enterococcus: No evidence of vegetation on MARCELINO. Infectious planning on prolonged course of IV antibiotics given recent AVR. - on Unasyn and Ceftrixone per ID till 04/03 - Repeat blood cultures so far negative. - Infectious disease planning for home IV infusion therapy. PICC line placed by -[facility] access team Paroxysmal atrial fibrillation:- in SR -on BB. Continue apixaban. KCL 10 meq po daily Acute kidney INjury - improved - ff BMP. Lasix on hold - Nephrology ff DM, type 2 - ff blood sugar as OP.- monitor and record. Hold Metformin with PANKAJ - FF up with PCP as OP History of BPH- on Flomax. stable GI prophylaxis:Stool softener PRN constipation. DVT PPx: Patient on Eliquis. DC plannaing- PICC and OP IV antibiotic arrangement- CM assisting us Possible DC today if arranged by CM and cleared by primary service OP ff up with PCP- Gomez OP ff up with Esperanza Cordero MD February 27, 2017 12:43
--- NOTE | 2017-02-27 13:02 | HHI.DS ---
Discharge Summary Admission Date Feb 20, 2017 at 02:42 Discharge Date: February 27, 2017 Admitting Diagnosis congestive heart failure with pulmonary edema (1) S/P AVR (aortic valve replacement) CBC/BMP: 02/24/17 0852 02/26/17 0531 Significant Findings Laboratory Tests Test 02/25/17 02/26/17 07:51 05:31 Blood Urea Nitrogen 20 MG/DL (7-18) 21 MG/DL (7-18) Creatinine 1.42 MG/DL (0.60-1.30) Estimat Glomerular Filtration 48 ML/MIN (>89) 57 ML/MIN (>89) Rate Hospital Course 81/ male , HX severe worsening symptoms of dyspnea , with minimal levels of exertion. Underwent cardiac cath by Dr Khoury minimal CAD 30% in prox LAD, Echo showed EF 53% PMH: , chronic anemia ( on ferrous sulfate, hx of Bone Marrow BX ( neg Heme workup) Carotid artery disease , CHF, CKD stage 3, DM, HTN, HLP, min CAD Surgery: 02/04 Minimally invasive AVR with a 23 Intuity tissue valve, MARCELINO, Percutaneous femoral cannulation, Perclose arterial closure, Ultrasound guidance for access, Internal rib fixation. Afib postop discharge home 02/08 per ED note : readmitted via ED early this am , dyspnea x one day , unable to breathe at all at home, He reports that came on all of a sudden today, + fever at home. Reports of mild cough but productive of yellowish sputum. bilateral lower extremity edema worsening in the past few days. Called 911 Upon EMS arrival, patient was quite dyspneic with peripheral edema for which they had given him Lasix 80 mg IV with 4 mg morphine. He was brought into ER on C Pap. He also had documented fever of 103 upon arrival, initial blood pressure was 200 over 100s. According to the family members at the bedside, patient did have a chest x-ray and an echocardiogram just yesterday at Dr. Dietrich's office. They were told that everything was normal. WBC unremarkable, CXR small right pleural effusion, + pulm edema BNP >600, Trop 0.12 ( recent surgery) lactic acid 1.2, BC pending / possible early pneumonia 02/21 pt less dyspneic, no further chills, no further fevers BC group D enterococcus 01/28 cultures/ ABX per ID MARCELINO noted: normal functioning bioprosthetic valve , Aortic valve: no perivalvular leak or abscess, no vegetation Mitral valve : no vegetation, Tricuspid valve : no vegetation , no pericardial effusion 02/24 doing well, on room air feels better, waiting Picc line placement and further plan per UD for dc with IV antibiotics 02/25 waiting on final decision for PICC line placement and antibiotic therapy from ID when completed, will dc home with f/u with Dr Amy Jones ID 02/26/17 No complaints. Wants to go home 02/27 D/C Home Pt Condition on Discharge: Good Discharge Disposition: Disch w/ Home Health Serv Discharge Instructions DIET: Follow Instructions for: Heart Healthy Diet Activities you can perform: Regular-No Restrictions Follow up Referrals: Appointment for Follow Up - 2 Weeks with Paola Samuel MD Infectious Disease with Amy Currie MD PCP Follow-up - 03/03/17 Continued Medications: Amiodarone (Amiodarone) 200 Mg Tab 200 MG PO Q12HR heart rhythm #28 TAB Apixaban (Eliquis) 2.5 Mg Tab 2.5 MG PO BID Blood Clot Prevention #60 Ref 1 TAB Aspirin (Aspirin) 81 Mg Tabdr 81 MG PO DAILY TAB Atorvastatin (Atorvastatin) 40 Mg Tab 40 MG PO HS Cholesterol Management Ref 0 TAB Carvedilol (Carvedilol) 3.125 Mg Tab 3.125 MG PO BID Ref 0 TAB Cholecalciferol (Vitamin D3) 1,000 Unit Tab 1000 UNITS PO DAILY Nutritional Supplement #1 Ref 0 BOTTLE Cyanocobalamin (Vitamin B-12) 1,000 Mcg Tab 1000 MCG PO DAILY Nutritional Supplement #1 Ref 0 BOTTLE Docusate Sodium (Dok) 100 Mg Cap 100 MG PO BID Constipation #60 CAP Enalapril (Enalapril) 10 Mg Tab 10 MG PO DAILY Ref 0 TAB Ferrous Sulfate (Iron) 325 Mg Tab 325 MG PO BIDPC Take after a meal. Nutritional Supplement Ref 0 TAB Magnesium Oxide (Magnesium Oxide) 400 Mg Tab 400 MG PO DAILY Nutritional Supplement Ref 0 TAB Metformin (Metformin) 500 Mg Tab 500 MG PO BIDPC With meals Blood Sugar Management Ref 0 TAB Multiple Vitamins W/ Minerals (Multivitamin Men) 1 Tab Tab 1 TAB PO DAILY Nutritional Supplement Ref 0 TAB Tamsulosin (Tamsulosin) 0.4 Mg Cap 0.4 MG PO HS Manage Prostate Problems Ref 0 CAP Luis Eduardo Gandhi MD February 27, 2017 13:02
[2017-02-27] MEDS: cefTRIAXone INJ 2,000 MG in SODIUM CHLORIDE 0.9% INJ 100 ML IV SCH (13:10)
--- NOTE | 2017-02-27 14:14 | HHI.FF ---
Face to Face Verification Diagnosis: (1) S/P AVR (aortic valve replacement) Home Health Nursing Order: Medical education IV medication administration I have seen patient Adalberto Gutierrez Jr Alpesh on 02/27/17. My clinical findings support the need for the requested home health care services because: Deconditioned w/ increased weakness Infection w/ risk of complications I certify that my clinical findings support that this patient is homebound because: Post-op weakness Luis Eduardo Gandhi MD February 27, 2017 14:14
== END 2017-02-27 15:26 | disposition home health service (06) | DRG 291 ==
LOC: NEPC 01:31 → NEDA 02:42 → HCIN 05:05 → N04B 10:35 → HCIN 18:20
PROVIDERS: ADMIT Thoracic Surgery (Cardiothoracic Vascular Surgery); ATTEND Thoracic Surgery (Cardiothoracic Vascular Surgery)
PROC: B246ZZ4 Ultrasonography of Right and Left Heart, Transesophageal (ICD-10-PCS; principal; 2017-02-21)
PROC: 02HV33Z Insertion of Infusion Device into Superior Vena Cava, Percutaneous Approach (ICD-10-PCS; 2017-02-26)
DX: I13.0 Hypertensive heart and chronic kidney disease with heart failure and stage 1 through stage 4 chronic kidney disease, or unspecified chronic kidney disease (principal); J18.9 Pneumonia, unspecified organism; N17.9 Acute kidney failure, unspecified; E11.22 Type 2 diabetes mellitus with diabetic chronic kidney disease; I48.0 Paroxysmal atrial fibrillation; N18.3 Chronic kidney disease, stage 3 (moderate); J44.0 Chronic obstructive pulmonary disease with (acute) lower respiratory infection; I50.33 Acute on chronic diastolic (congestive) heart failure; R78.81 Bacteremia; I16.1 Hypertensive emergency; D64.9 Anemia, unspecified; I25.10 Atherosclerotic heart disease of native coronary artery without angina pectoris; E78.5 Hyperlipidemia, unspecified; I08.1 Rheumatic disorders of both mitral and tricuspid valves; N40.0 Benign prostatic hyperplasia without lower urinary tract symptoms; B95.2 Enterococcus as the cause of diseases classified elsewhere; Z79.01 Long term (current) use of anticoagulants; Z79.84 Long term (current) use of oral hypoglycemic drugs; Z95.2 Presence of prosthetic heart valve; Z95.3 Presence of xenogenic heart valve; Z96.651 Presence of right artificial knee joint
CPT/HCPCS: 36569; 36600; 71010; 76937; 80048; 80053; 80170; 81001; 82550; 82805; 82948; 83605; 83735; 83880; 84484; 85007; 85025; 85027; 87040; 87077; 87186; 87205; 93005; 93312; 93320; 93325; 94002; 96374; J0290; J0295; J0696; J1580; J1815; J1885; J1940; J1956; J2250; J3010; J3370; J7030; J7040

== ENCOUNTER 2017-06-23 05:49 | Day surgery (SDC) | payer OTHER ==
[2017-06-23] VITALS (16 sets, daily range): BP systolic 123–169; BP diastolic 66–88; PULSE 60–78; RESP 16–18; TEMP 98.2–98.8; O2SAT 97–100
[~2017-06-23] VITALS: Ht 172.7 cm; Wt 82.5 kg
[~2017-06-23 05:49] MED LIST changes: +PRED50 PO
[2017-06-23] MEDS ORDERED: FURO20TA PO (06:44)
[2017-06-23] MEDS ORDERED: POTA10TA2 PO (06:44)
[2017-06-23] MEDS ORDERED: FERR325C PO (06:44)
[2017-06-23 07:10] LABS: APTT (PATIENT) 26.2 SEC (24.3-30.1); PROTHROMBIN TIME - PATIENT 11.5 SEC (9.8-11.6)
[2017-06-23 07:12] LABS: AUTOMATED NEUTROPHIL # 2.3 TH/MM3 (1.8-7.7); BASOPHIL % 1.1 % (0.0-2.0); EOSINOPHIL # 0.2 TH/MM3 (0-0.4); EOSINOPHIL % 5.6 % (0.0-4.0); HEMATOCRIT 36.4 % (39.0-51.0); LYMPH % 21.8 % (9.0-44.0); LYMPHOCYTE # 0.8 TH/MM3 (1.0-4.8); MEAN CELL VOLUME 81.7 FL (80.0-100.0); MEAN CORPUSCULAR HEMOGLOBIN 25.8 PG (27.0-34.0); MEAN CORPUSCULAR HGB CONC 31.6 % (32.0-36.0); MONO % 12.3 % (0.0-8.0); NEUT % 59.2 % (16.0-70.0); PLATELET COUNT 98 TH/MM3 (150-450); RED BLOOD COUNT 4.45 MIL/MM3 (4.50-5.90); RED CELL DISTRIBUTION WIDTH 17.5 % (11.6-17.2); WHITE BLOOD COUNT 3.9 TH/MM3 (4.0-11.0)
[2017-06-23 07:15] LABS: HEMO FLAGS AUTO DIFF
[2017-06-23 07:22] LABS: BICARBONATE 28.5 MEQ/L (21.0-32.0); POTASSIUM 3.6 MEQ/L (3.5-5.1)
[2017-06-23] MEDS ORDERED: INSULIN HUMAN REGULAR 1,000 UNITS/10 ML VIAL SQ PRN (07:30)
[2017-06-23] MEDS ORDERED: LACTATED RINGER'S 1000 ML IV PRN (07:30)
[2017-06-23] MEDS ORDERED: CHLORHEXIDINE GLUCONATE 2 % 1 PACK (2 CLOTHS) TOPICAL PRN (07:30)
[2017-06-23] MEDS ORDERED: SODIUM CHLORID 0.9% 500 ML IV PRN (07:30)
[2017-06-23] MEDS ORDERED: POVIDONE IODINE 5% (ANTISEPSIS KIT) 4 APPLICATIONS EACH NARE PRN (07:30)
[2017-06-23] MEDS ORDERED: METOPROLOL TARTRATE 25 MG TAB PO PRN (07:30)
[2017-06-23] MEDS ORDERED: HEPARIN-NS/PF INJ 1,500 ML ONE (07:36)
[2017-06-23] MEDS ORDERED: ISOPROTERENOL HCL 1 MG/5 ML AMP ONE (07:36)
[2017-06-23] MEDS ORDERED: SODIUM CHLOR 0.9% 250 ML INJ 250 ML ONE (07:37)
[2017-06-23 07:57] LABS: OVALOCYTES 1+ (NORMAL); PLATELET ESTIMATE SMEAR LOW (NORMAL); PLATELET MORPHOLOGY NORMAL (NORMAL); SCAN/DIFF AUTO DIFF CONFIRMED
[2017-06-23] MEDS ORDERED: SODIUM CHLOR 0.9% 250 ML INJ 250 ML IV PRN (08:45)
[2017-06-23] MEDS ORDERED: LIDOCAINE HCL 1% 50 ML VIAL INFIL PRN (08:45)
[2017-06-23] MEDS ORDERED: BACITRACIN OINT 0.9 GM PKT TOP ONE (08:45)
[2017-06-23] MEDS ORDERED: ONDANSETRON HCL 4 MG/2 ML VIAL IV PRN (08:45)
[2017-06-23] MEDS ORDERED: LORazepam 2 MG/ML VIAL IV PRN (08:45)
[2017-06-23] MEDS ORDERED: oxyCODONE/ACETAMINOPHEN 5 MG/325 MG TAB PO PRN ×2 (08:45)
[2017-06-23] MEDS ORDERED: METOCLOPRAMIDE HCL 10 MG/2 ML VIAL IV PRN (08:45)
[2017-06-23] MEDS ORDERED: ATROPINE SULFATE 1 MG/ML VIAL IV PRN (08:45)
--- NOTE | 2017-06-23 08:46 | CATHPROC ---
[facility] HIS Report Study Information Study Number Admission Scheduled Start Study Start [id number] Jun 23 2017 5:49AM 06/23/2017 Jun 23 2017 6:53AM [facility] Electrophysiology Study Admit Source Facility Department Other [facility] Physician and Clinical Staff Initial Trevor Hickman Enterprise Systems Architect Yuliana Iyer RCIS Enterprise Systems Architect Fco Ghosh,RT(R) Other Anesthesia, SHAREPOINT ANALYST Recorder Mami Sanches,DAVE Scrub Aidee Muñoz,WELDER SHIELDED METAL ARC TECH2 Procedures Performed Procedure Location (Site) Vessel Name Ablation Procedure RF Ablation Isthmus Other Equipment Time [employer] Clerk Description Size Mfg Part Number Used/Scraped BIOSENSE ROLLE CATHETER, CELSIUS DS, 8MM, F [id number] 07:48 FR 7 Used INC. TYPE QUAD *[id number] 07:47 [employer] CATHETER, JSN, QUAD FR 5 Used *[id number] 07:47 [employer] CATHETER, JSN, QUAD FR 5 Used *[id number] 07:47 [employer] CATHETER, JSN, QUAD FR 5 Used *[id number] 07:47 [employer] CATHETER, JSN, QUAD FR 5 Used *[id number] 07:47 [employer] SHEATH, EPS, FR5 FAST CATH FR 5 Used *[id number] 07:47 [employer] SHE[employer], EPS, FR5 FAST CATH FR 5 Used *[id number] 07:47 [employer] SHEATH, EPS, FR5 FAST CATH FR 5 Used *[id number] 07:47 [employer] SHEATH, EPS, FR6 FAST CATH FR [address] [id number] Used 07:47 [employer] SHEATH, EPS, FR8 FAST CATH FR 8 [id number] Used History: Allergies Allergy Reaction No Known Allergies History: Risk Factors Hypertension Dyslipidemia Yes Yes Diabetes Diabetes Therapy Labs Hgb (g/dl) Hct (%) RBC (MIL/MM3) WBC (l/cumm) Platelets (thousands) 11.60-17.00 35.00-51.00 4.00-5.90 4.00-11.00 150.00-450.00 11.5 36.4 4.4 3.9 98 Glucose (mg/dl) BUN (mg/dl) Creatinine (mg/dl) BUN:Creatinine (1:x) 74.00-106.00 7.00-18.00 0.50-1.30 10.00-20.00 130 25 1.2 20.8 Na (meq/l) K (meq/l) 136.00-145.00 3.50-5.10 141 3.6 INR (PTT:PT) 0.90-1.10 1 Medication Medication Total Dose (Bolus/Oral) Medication Total Dosage/Unit 1% XYLOCAINE 40 mL Medications (Bolus/Oral) Medication Time Given Dosage/Unit Administered By Reason 1% XYLOCAINE 06/23/2017 8:06:58 AM 20 mL Trevor Swain 20 mL 1% XYLOCAINE given in lab by Trevor Swain in Left Groin via Subcutaneous. 1% XYLOCAINE 06/23/2017 8:09:01 AM 20 mL Trevor Swain 20 mL 1% XYLOCAINE given in lab by Trevor Swain in Right Groin via Subcutaneous. Medication (Drip) Medication Time Given Dosage/Unit Concentration/Unit Diluent (ml) Solution ISUPREL 06/23/2017 8:27:55 AM 5 mcg/min 1 mg 250 NaCl .9 5 mcg/min ISUPREL given in lab by Anesthesia, SHAREPOINT ANALYST via Peripheral IV. Pump/Drip Flow = 75 ml/hr using NaCl .9 with a concentration of 1 mg in 250 ml. Ordered by Trevor Swain. Reason: As per physicians verbal order. Initial Case Assessment Cardiovascular HR NIBP Chest Pain 58 163/89 0 Edema Present Skin color Skin Mild Normal Warm Dry Circulatory - Right Pulses Dorsalis Pedis 3 Scale (0,1,2,3,4,d) Circulatory - Left Pulses Dorsalis Pedis 3 Scale (0,1,2,3,4,d) Circulatory - Lower Extremities Color Lower Right Color Lower Left Normal Normal Neurological State Oriented to time-place- Alert Moves all extremities person Respiration - General Respiration Rate SpO2 (%) (B/min) 18 99 Final Case Assessment Cardiovascular HR Rhythm NIBP Chest Pain 90 sr 94/50 0 Edema Present Skin color Skin Mild Normal Warm Dry Circulatory - Right Pulses Dorsalis Pedis 3 Scale (0,1,2,3,4,d) Circulatory - Left Pulses Dorsalis Pedis 3 Scale (0,1,2,3,4,d) Circulatory - Lower Extremities Color Lower Right Color Lower Left Normal Normal Neurological State Oriented to time-place- Lethargic Moves all extremities person Respiration - General Respiration Rate SpO2 (%) O2 (lpm) (B/min) 12 100 6 Chronological Log Time Study Chronological Log 7:23:10 Patient arrived via Bed. 7:23:12 Patient Name, D.O.B, / Armband Verified By R.N. 7:23:13 Consent signed by the physician and the patient and verified by the [facility] staff. 7:26:02 Pre-op and post- op instructions given; patient acknowledges understanding of instructions. 7:26:03 Verbal Stimulation=2 Physical Stimulation=2 Airway=2 Respiration=2 TOTAL=8. (0=absent, 1=li mited, 2=present) 7:26:04 Anesthesia at bedside. Assumes care of patient. Bertha 7:26:28 Patient has been NPO for More than 6Hrs. 7:26:31 Skin Breakdown- 7:26:32 Patient Warmer Placed on the Table. 7:26:33 Disposable Defibrillator Pads Placed On Patient. 7:26:38 Jasmyne Prominences Protected 7:26:39 A # 20 IV was noted in the Antecubital (right). Grade = 0 0.9ns kvo 7:26:40 A # 20 IV was noted in the Antecubital (left). Grade = 0 0.9ns kvo 7:26:41 History and physical on the chart or being dictated. 7:42:26 Table restraints applied according to hospital policy Assessment: Initial Case, HR=58 BPM, TNRW=219/89 mmhg, Chest Pain=0, Edema=Mild, Color=Normal, S kin = Warm, Dry Right Pulses: Bentley Ped=3 Left Pulses: Bentley Ped=3 7:42:33 Lower Right Extremities: Color=Normal Lower Left Extremities: Color=Normal Neurological: State=Alert, Ox3, MAYO Respiration: Resp=18 B/min, SpO2=99 % 7:46:11 Bilateral groins prepped with 2% chlorhexidine, and with a 3 min. waiting time. 7:48:35 MD paged 7:54:55 Reference ECG taken 8:02:25 MD arrived. Time Out. Correct patient, procedure, procedure equipment, site and side verified with physician present. Time 8:06:01 concurred by MD individual staff and SHAREPOINT ANALYST. Time Out #2 - Consents verified, patient in correct position, all results are labled and display ed, safety precautions 8:06:34 taken, antibiotics administered. Time out concurred by MD, individual staff and SHAREPOINT ANALYST in procedur e 8:06:57 Case Start 8:06:58 20 mL 1% XYLOCAINE given in lab by Trevor Swain in Left Groin via Subcutaneous. 8:07:21 Vascular access was obtained in the Fem Vein (left). 8:07:37 Vascular access was obtained in the Fem Vein (left). 8:07:41 Vascular access was obtained in the Fem Vein (left). 8:07:43 A SHEATH, EPS, FR5 FAST CATH FR 5 was advanced into the Fem Vein (left) using the Modified S eldinger technique. 8:07:51 A SHEATH, EPS, FR5 FAST CATH FR 5 was advanced into the Fem Vein (left) using the Modified S eldinger technique. 8:07:58 A SHEATH, EPS, FR5 FAST CATH FR 5 was advanced into the Fem Vein (left) using the Modified S eldinger technique. 8:09:01 20 mL 1% XYLOCAINE given in lab by Trevor Swain in Right Groin via Subcutaneous. 8:09:23 Vascular access was obtained in the Fem Vein (right). 8:09:32 Vascular access was obtained in the Fem Vein (right). 8:09:43 A SHEATH, EPS, FR6 FAST CATH FR 6 was advanced into the Fem Vein (right) using the Modified Seldinger technique. 8:09:59 A SHEATH, EPS, FR8 FAST CATH FR 8 was advanced into the Fem Vein (right) using the Modified Seldinger technique. A CATHETER, JSN, QUAD FR 5 was advanced vis Fem Vein (right) and placed in the CS. Placement was visually 8:10:50 confirmed under fluoroscopy. 6fr A CATHETER, JSN, QUAD FR 5 was advanced vis Fem Vein (left) and placed in the HRA. Placement was visually 8:11:19 confirmed under fluoroscopy. A CATHETER, JSN, QUAD FR 5 was advanced vis Fem Vein (left) and placed in the HIS. Placement was visually 8:11:37 confirmed under fluoroscopy. A CATHETER, JSN, QUAD FR 5 was advanced vis Fem Vein (left) and placed in the RVA. Placement was visually 8:12:50 confirmed under fluoroscopy. 8:14:11 EPS in progress A CATHETER, CELSIUS DS, 8MM, F TYPE QUAD FR 7 was advanced vis Fem Vein (right) and placed in th e Isthmus. 8:17:44 Placement was visually confirmed under fluoroscopy. 8:19:00 RF Ablation of the Isthmus with a CATHETER, CELSIUS DS, 8MM, F TYPE QUAD FR 7. 5 mcg/min ISUPREL given in lab by Anesthesia, SHAREPOINT ANALYST via Peripheral IV. Pump/Drip Flow = 75 ml/hr using NaCl .9 with 8:27:55 a concentration of 1 mg in 250 ml. Ordered by Trevor Swain. Reason: As per physicians verbal or edwar. 8:38:02 Isuprel off 8:39:19 Catheter(s) removed without difficulty 8:41:37 Sheath(s) left in place, secured, 0.9ns kvo connected and will be removed in Holding Area 8:42:22 Sterile dressing applied to site 8:42:50 Ablation procedure performed: Aflutter. 8:42:56 EP Procedure was performed. 8:42:57 Case End 8:43:00 No case complications noted. 8:43:06 DOCU called. Spoke to KIT 8:43:23 Bedside Report will be given. 8:43:32 Defibrillator and ground pads removed. Skin intact. Assessment: Final Case, HR=90 BPM, Rhythm=sr, NIBP=94/50 mmhg, Chest Pain=0, Edema=Mild, Color =Normal, Skin = Warm, Dry Right Pulses: Bentley Ped=3 Left Pulses: Bentley Ped=3 8:43:51 Lower Right Extremities: Color=Normal Lower Left Extremities: Color=Normal Neurological: State=Lethargic, Ox3, MAYO Respiration: Resp=12 B/min, TuM8=814 %, O2=6 lpm 8:48:00 Patient moved to stretcher End Study - Contrast Media Used In Study Contrast Total Opened (mL) Total Used (mL) Total Wasted (mL) Unspecified 0 0 0 End Study - Maximum Contrast Load Max Contrast Load (mL) 335.8 End Study - Radiation Exposure Fluoro Time (minutes) 1.9 End Study - Patient Disposition Complications Transferred To Interventional Outcome No Telemetry Bed successful
[2017-06-23] MEDS: CARVEDILOL 3.125 MG TAB PO SCH ×2 (09:00→20:15)
[2017-06-23] MEDS: POTASSIUM CHLORIDE 10 MEQ CONTROLLED RELEASE TAB PO SCH (09:00)
[2017-06-23] MEDS: CHOLECALCIFEROL (VIT D3) 1000 UNIT TAB PO SCH (09:00)
[2017-06-23] MEDS: FUROSEMIDE 20 MG TAB PO SCH (09:00)
[2017-06-23] MEDS: ENALAPRIL MALEATE 10 MG TAB PO SCH (09:00)
[2017-06-23] MEDS: CYANOCOBALAMIN 1,000 MCG TAB PO SCH (09:00)
[2017-06-23] MEDS ORDERED: MIDAZOLAM HCL 2 MG/2 ML VIAL ONE (09:05)
[2017-06-23] MEDS: FERROUS SULFATE 325 MG (65 MG ELEMENTAL IRON) TAB PO SCH (10:00)
--- NOTE | 2017-06-23 10:07 | MA ---
cc: ISABEL SWAIN M.D. DATE 06/23/2017 PROCEDURE Electrophysiology study, CS cannulation, 3-D mapping radiofrequency ablation of atrial flutter. INDICATIONS FOR PROCEDURE Mr. Betts is an 81-year-old gentleman with atrial flutter, previous aortic valve replacement, to undergo an electrophysiology study and ablation. The risks, the nature and the benefit of the procedure are clearly stated to him the risks include pneumothorax, cardiac perforation, stroke, need for open heart surgery and even . The patient understood and agreed to proceed. PROCEDURE As written informed consent was obtained prior to electrophysiology study, the patient was kept on the table where he was prepped and draped in the usual sterile fashion. Conscious sedation was initiated and maintained throughout the procedure by the anesthesiologist. Once sedation was verified, the right and left inguinal area was anesthetized with 2% Xylocaine. Using modified Seldinger technique, the left femoral vein was cannulated on three occasions. Three guidewires were advanced over the wire. Three 5-[place] Hemaquets were advanced and the right femoral vein was cannulated on two occasions. Two guidewires were advanced over the wire. A 6 and an 8-[place] Hemaquet were advanced. Then under fluoroscopic guidance through the 5 and 6-[place] Hemaquet, four 5-[place] Adriel curved quadripolar electrophysiology catheters were advanced and placed along the His, upper right atrium, coronary sinus and right ventricular apex. Basic interval was measured. They were within normal limits. At this point atrial pacing protocol was performed. Atrial pacing protocol consisted of incremental atrial pacing as well as program stimulation with 110 cycle length and up to one extrastimuli delivered. A Wenckebach of the node was around 600 milliseconds. During atrial pacing protocol at the coronary sinus supraventricular tachyarrhythmia of intracardiac characteristic of atrial flutter was induced. Then through the 8-[place] Hemaquet, a Cordis Solares F-curve, 8 mm mapping and radiofrequency ablation catheter was advanced. Using [employer]ii ob[employer]ad[employer] endocardial solution mapping system a three-dimensional configuration of the right atrium was obtained. At that point the patient went back into sinus rhythm. The catheter was placed at the critical isthmus. Radiofrequency energy was delivered. A line was created. Then pacing lateral to the line showed early activation to the His compared to the CS that indicated bilateral line of block. Then atrial pacing protocol was repeated again and no tachyarrhythmia was induced. Then Isuprel infused at 5 mcg. No tachyarrhythmia was induced. Post Isuprel no tachyarrhythmia was induced. At that point the procedure was complete. All catheters were removed. The patient is going to be transferred to the recovery room. No incident reported. The patient tolerated the procedure. Blood loss minimal. 1. ELECTROCARDIOGRAM: At baseline the patient was in sinus. Postprocedure electrocardiogram was unchanged. 2. BASIC INTERVAL: Base cycle length was 780 milliseconds, AH at 145 and HV at 60 milliseconds. 3. ATRIAL PACING PROTOCOL: Wenckebach of the node was over 600 milliseconds. During atrial pacing protocol supraventricular tachyarrhythmia of intracardiac characteristic of atrial flutter was induced. 4. VENTRICULAR PACING PROTOCOL: No tachyarrhythmia was induced. 5. TACHYARRHYTHMIA: Atrial flutter was induced, flutter was ablated. Ablation was successful. CONCLUSION Successful electrophysiology study, mapping and radiofrequency ablation of atrial flutter. COMMENT AND RECOMMENDATIONS The patient is going to be transferred to the recovery room. He will be observed and if stable in the morning he will be discharged home. Isabel Swain MD HS/SSB /8:39 AM /9:49 AM
[2017-06-23] MEDS: MAGNESIUM OXIDE 400 MG TAB PO SCH (13:51)
--- NOTE | 2017-06-23 15:12 | EKG ---
Date Performed: 06/23/2017 Time Performed: 06:49:24 PTAGE: 81 years EKG: Sinus rhythm with borderline 1st degree A-V block. Left bundle branch block Abnormal ECG PREVIOUS TRACING : 02/20/2017 15.46 Since previous tracing, no significant change noted DOCTOR: Wayne Ta Interpretating Date/Time 06/23/2017 15:10:27
[2017-06-23] MEDS: metFORMIN HCL 500 MG TAB PO SCH (19:40)
[2017-06-23] MEDS: APIXABAN 2.5 MG TABLET PO SCH (20:15)
[2017-06-23] MEDS ORDERED: TAMSULOSIN HCL 0.4 MG CAP PO SCH (21:00)
[2017-06-23] MEDS ORDERED: ATORVASTATIN 40 MG TAB PO SCH (21:00)
[2017-06-24] VITALS (14 sets, daily range): BP systolic 139–143; BP diastolic 76–84; PULSE 66–94; RESP 18; TEMP 97.2–98.8; O2SAT 96–98
[2017-06-24] MEDS: metFORMIN HCL 500 MG TAB PO SCH (09:00)
[2017-06-24] MEDS: CYANOCOBALAMIN 1,000 MCG TAB PO SCH (09:00)
[2017-06-24] MEDS: POTASSIUM CHLORIDE 10 MEQ CONTROLLED RELEASE TAB PO SCH (10:36)
[2017-06-24] MEDS: CARVEDILOL 3.125 MG TAB PO SCH (10:36)
[2017-06-24] MEDS: ENALAPRIL MALEATE 10 MG TAB PO SCH (10:36)
[2017-06-24] MEDS: APIXABAN 2.5 MG TABLET PO SCH (10:36)
[2017-06-24] MEDS: CHOLECALCIFEROL (VIT D3) 1000 UNIT TAB PO SCH (10:36)
[2017-06-24] MEDS: FERROUS SULFATE 325 MG (65 MG ELEMENTAL IRON) TAB PO SCH (10:36)
[2017-06-24] MEDS: FUROSEMIDE 20 MG TAB PO SCH (10:38)
[2017-06-24] MEDS: MAGNESIUM OXIDE 400 MG TAB PO SCH (11:48)
--- NOTE | 2017-06-24 15:21 | EKG ---
Date Performed: 06/24/2017 Time Performed: 03:40:12 PTAGE: 81 years EKG: Normal Sinus rhythm with first degree AV block Left bundle branch block Abnormal ECG PREVIOUS TRACING : 06/23/2017 06.49 Since the prior tracing, there has been some slight prolong ation of the OR interval, but otherwise no significant serial change. DOCTOR: Leilani Lewis Interpretating Date/Time 06/24/2017 15:19:51
--- NOTE | 2017-06-24 15:38 | HHI.PR ---
Subjective Remarks Feeling ok Objective Vital Signs Date Time Temp Pulse Resp B/P (MAP) Pulse Ox O2 Delivery O2 Flow Rate FiO2 06/24/17 13:14 68 06/24/17 12:00 74 06/24/17 11:00 67 06/24/17 11:00 97.2 79 18 139/79 (99) 06/24/17 08:00 94 06/24/17 07:00 98.2 74 18 143/84 (103) 96 06/24/17 07:00 71 06/24/17 06:33 71 06/24/17 05:03 71 06/24/17 04:31 73 06/24/17 03:41 72 06/24/17 03:29 97.8 77 142/81 (101) 98 06/24/17 02:00 72 06/24/17 01:00 70 06/24/17 00:03 98.8 71 143/76 (98) 98 06/24/17 00:00 66 06/23/17 23:00 72 06/23/17 22:00 68 06/23/17 21:00 70 06/23/17 20:00 98.8 75 123/66 (85) 97 06/23/17 20:00 72 06/23/17 19:00 78 06/23/17 18:00 66 06/23/17 17:00 66 06/23/17 16:00 66 06/23/17 15:45 98.6 64 18 151/79 (103) 100 I/O 06/23/17 06/23/17 06/23/17 06/24/17 06/24/17 06/24/17 07:00 15:00 23:00 07:00 15:00 23:00 Intake Total 480 ml 240 ml Output Total 401 ml 575 ml Balance 79 ml -335 ml Intake Oral 480 ml 240 ml Output Urine Total 400 ml 575 ml Stool Total 1 ml # Voids 3 Result Diagram: 06/23/1763206/23/17632 Imaging Alert, fully oriented Lungs: ventilated Heart: S1, S2 regular Abdomen: soft Ext: no edema Current Medications Medications (Trade) Dose Ordered Sig/Geoff Route Start Time Stop Time Status Last Admin Lactated Ringer's 1,000 ml @ 30 mls/hr Q24H PRN IV 06/23/17 07:30 06/26/17 07:29 Sodium Chloride 500 ml @ 30 mls/hr [id number] PRN IV 06/23/17 07:30 06/26/17 07:29 (Lopressor) 25 mg TRAINING ENGINEER PRN PO 06/23/17 07:30 06/26/17 07:29 (Betadine 5% Antisepsis Kit) 1 applic TRAINING ENGINEER PRN EACH NARE 06/23/17 07:30 06/26/17 07:29 (Chlorhexidine 2% Cloth) 3 pack TRAINING ENGINEER PRN TOPICAL 06/23/17 07:30 06/26/17 07:29 (NovoLIN R INJ) See Protocol Table ... TRAINING ENGINEER PRN SQ 06/23/17 07:30 06/26/17 07:29 (Percocet 5-325 Mg) 1 tab Q4H PRN PO 06/23/17 08:45 (Percocet 5-325 Mg) 2 tab Q4H PRN PO 06/23/17 08:45 (Atropine Inj) 0.5 mg UNSCH PRN IV 06/23/17 08:45 (Reglan Inj) 5 mg Q4H PRN IV 06/23/17 08:45 (Zofran Inj) 4 mg Q4H PRN IV 06/23/17 08:45 (Eliquis) 2.5 mg BID PO 06/23/17 21:00 06/24/17 10:36 (Lipitor) 40 mg HS PO 06/23/17 21:00 06/23/17 20:15 (Coreg) 3.125 mg BID PO 06/23/17 09:00 06/24/17 10:36 (Vitamin D3) 1,000 units DAILY PO 06/23/17 09:00 06/24/17 10:36 (Vitamin B12) 1,000 mcg DAILY PO 06/23/17 09:00 06/24/17 09:00 (Vasotec) 10 mg DAILY PO 06/23/17 09:00 06/24/17 10:36 (Lasix) 20 mg DAILY PO 06/23/17 09:00 06/24/17 10:38 (Mag-Ox) 400 mg DAILY@1100 PO 06/23/17 11:00 06/24/17 11:48 (Glucophage) 500 mg BIDPC PO 06/23/17 18:00 06/23/17 19:40 (KCl) 10 meq DAILY PO 06/23/17 09:00 06/24/17 10:36 (Flomax) 0.4 mg HS PO 06/23/17 21:00 06/23/17 20:15 (Ferrous Sulfate) 325 mg DAILY PO 06/23/17 10:00 06/24/17 10:36 Assessment and Plan Problem List: (1) Atrial flutter ICD Codes: I48.92 - Unspecified atrial flutter Plan: SP ablation. Doing better No SOB. No palpitation No chest pain Ok to Follow up as previously scheduled (2) Hypertension ICD Codes: I10 - Essential (primary) hypertension Status: Chronic Plan: SBP 139 Trevor Swain MD Jun 24, 2017 15:38
== END 2017-06-24 16:04 | disposition home or self-care (01) ==
LOC: HCAT 05:49 → HDIC 05:50 → HCIS 11:33 → HCAT 06-24 16:04
PROVIDERS: ATTEND Internal Medicine Interventional Cardiology
DX: I48.92 Unspecified atrial flutter (principal); I13.0 Hypertensive heart and chronic kidney disease with heart failure and stage 1 through stage 4 chronic kidney disease, or unspecified chronic kidney disease; I50.9 Heart failure, unspecified; N18.2 Chronic kidney disease, stage 2 (mild); I48.91 Unspecified atrial fibrillation; E11.9 Type 2 diabetes mellitus without complications; E78.5 Hyperlipidemia, unspecified; Z95.2 Presence of prosthetic heart valve; Z87.891 Personal history of nicotine dependence; Z79.01 Long term (current) use of anticoagulants; Z79.84 Long term (current) use of oral hypoglycemic drugs; Z79.899 Other long term (current) drug therapy
CPT/HCPCS: 80048; 85025; 85610; 85730; 86850; 86900; 86901; 93005; 93613; 93623; 93653; C1730; C1732; C2630; J1644; J2250; J3010; J7050